=== PATIENT | male | born 1960 | race Caucasian/White ===

== ENCOUNTER 2016-03-10 05:47 | Inpatient (IN) ==
[2016-03-10] MEDS ORDERED: Ringers Solution, Lactated 1,000 ML IVC SCH ×2 (06:30→08:45)
[2016-03-10] MEDS ORDERED: Albuterol 2.5 MG/3 ML NEBULIZER ONE (06:35)
[2016-03-10] MEDS ORDERED: Albuterol 2.5 MG/3 ML NEBULIZER IH ONE ×2 (06:50→08:41)
[2016-03-10] MEDS ORDERED: Lidocaine -MPF 4% 5 ML AMPUL ONE (06:57)
[2016-03-10] MEDS ORDERED: *HR* Midazolam HCl 2 MG/2 ML VIAL ONE (07:00)
[2016-03-10] MEDS ORDERED: *HR* FentaNYL (PF) 100 MCG/2 ML VIAL ONE ×2 (07:00→08:19)
[2016-03-10] MEDS ORDERED: *HR* Propofol 200 MG/20 ML VIAL IVP ONE (07:00)
[2016-03-10] MEDS ORDERED: *HR* Rocuronium Bromide 50 MG/5 ML VIAL ONE (07:01)
[2016-03-10] MEDS ORDERED: *HR* Succinylcholine 200 MG/10 ML VIAL IVP ONE (07:01)
[2016-03-10] MEDS ORDERED: *HR* Phenylephrine 10 MG/ML VIAL ONE (07:01)
[2016-03-10] MEDS ORDERED: Lidocaine -MPF 2% 2 ML VIAL ONE (07:01)
--- NOTE | 2016-03-10 07:14 | Anesthesia Evaluation PreOp ---
Date of Encounter: 03/10/16 Time of Encounter: 07:00 - Past History Planned Operation: Ileostomy Takedown Cardiac History: HTN, Hyperlipidemia Pulmonary History: Denies Any Significant HX Other Medical History: GERD Anesthesia History: No Prior Anesthetic Complications Alcohol Use: none Drug use: none Medications and Allergies Lisinopril [Zestril] 10 mg PO DAILY 11/16/14 [History] Atorvastatin [Lipitor] 40 mg PO DAILY 08/19/15 [History] Omeprazole [PriLOSEC] 20 mg PO DAILY 08/19/15 [History] OxyCODONE/APAP 10/325 [Percocet 10/325 MG] 1 tab PO Q8HR PRN 09/04/15 [History] Amoxicillin/Clavulanate [Augmentin] 875 mg PO BIDWM #20 tablet 09/16/15 [Rx] Docusate [Colace] 100 mg PO BID PRN #60 capsule 09/16/15 [Rx] OxyCODONE/APAP 10/325 [Percocet 10/325 MG] 1 each PO Q4HR PRN #39 tablet [Rx] Ondansetron ODT [Zofran ODT] 4 mg SL Q6HR PRN #15 tab.rapdis 02/16/16 [Rx] Oxycodone HCl/Acetaminophen [Percocet 5-325 mg Tablet] 1 - 2 each PO Q6H PRN # 20 tablet 02/16/16 [Rx] Tamsulosin [Flomax] 0.4 mg PO DAILY #5 capsule 02/16/16 [Rx] Allergies tramadol Allergy (Unverified 03/03/16 11:47) Vomiting - Meds/Allergy Pre-op Review Medications Reviewed: Yes Allergies Reviewed: Yes Beta Blockers on Current Med List: No Anesthesia Results - Labs Laboratory Tests 02/15/16 03/03/16 23:59 11:58 Hgb 15.1 Hct 46.3 Plt Count 352 Sodium 138 Potassium 4.1 Carbon Dioxide 15 L BUN 11 - Imaging EKG: report reviewed (SR) Additional studies: EF 67% Anesthesia Exam O2 Sat Height 1.7 m Height 1.7 m Weight 94.347 kg Weight 94.347 kg O2 Sat by Pulse Oximetry 99 Vital Signs Temp Pulse Resp BP Pulse Ox 97.8 F 92 18 125/86 99 03/10/16 06:11 03/10/16 06:11 03/10/16 06:11 03/10/16 06:11 03/10/16 06:11 Height: 5'7 Weight: 208 lbs NPO (# of Hours): MN - HEENT Pupil (Motor): Pupils equal, EOMI Mallampati: III Teeth: Edentulous Oral Opening: Greater than 3 - TUBERCULOSIS SPECIALIST LOC: Oriented TUBERCULOSIS SPECIALIST Motor: Normal RUE, Normal LUE, Normal RLE, Normal LLE, Normal Face TUBERCULOSIS SPECIALIST Sensory: Normal: RUE, LUE, RLE, LLE, Face - Cardiac Rhythm: Regular Murmur: None JVD: No Carotid Bruit: No - Pulmonary Breath Sounds: bilateral Clear Respiratory Effort: Symmetrical Anesthesia Assess/Plan ASA Score: 2 Modified Goodell Scale for Level of Consciousness: Cooperative, oriented, and tranquil Anesthetic Plan: General Monitoring Plan: Standard Monitors Recovery Plan: PACU (Discussed GA, agrees to proceed)
--- NOTE | 2016-03-10 08:11 | History & Physical Report ---
Date of Encounter: 03/10/16 Time of Encounter: 08:11 24 Hour HP Update - Instructions Instructions: If the History and Physical is less than 30 days old and was completed prior to A.M. admission and or procedure and has NOT been updated on calendar day of procedure please complete this update prior to performing procedure. - Update Patient reports changes in Medical Condition: No Changes in assessment/condition: No Changes in Medication: No Preop tests/diagnostics Reviewed: Yes Surgery Remains Indicated: Yes Consent for Planned Operative Procedure(s) Verified: Yes - Pre-Operative Checklist Preoperative Checklist Indicated: Yes Prophylactic Antibiotic Ordered: Yes Home Medications Include Beta Belem: No
[2016-03-10] MEDS ORDERED: cefOXitin 2,000 MG in D5% in Water (Mini-Bag+) 100 ML IVPB ONE (08:12)
[2016-03-10] MEDS ORDERED: Dexamethasone 4 MG/ML VIAL ONE ×2 (08:20→09:51)
[2016-03-10] MEDS ORDERED: Ondansetron 4 MG/2 ML VIAL ONE ×2 (08:20→09:51)
[2016-03-10] MEDS ORDERED: *HR* Labetalol 100 MG/20 ML MDV IVP PRN (08:41)
[2016-03-10] MEDS ORDERED: *HR* Meperidine 25 MG/ML SYRINGE IVP PRN (08:41)
[2016-03-10] MEDS ORDERED: Naloxone 0.4 MG/ML INJ IVP PRN (08:41)
[2016-03-10] MEDS ORDERED: Ondansetron 4 MG/2 ML VIAL IVP ONE (08:41)
[2016-03-10] MEDS ORDERED: Neostigmine Methylsulfate 3 MG/3 ML SYRINGE ONE ×2 (08:59→09:26)
[2016-03-10] MEDS: *HR* HYDROmorphone (PF) 1 MG/ML SYRINGE IVP PRN ×7 (09:28→20:04)
[2016-03-10] MEDS ORDERED: Acetaminophen IV 1,000 MG/100 ML INFUS..BTL IVPB ONE (09:53)
[2016-03-10] MEDS ORDERED: *HR* HYDROmorphone (PF) 1 MG/ML SYRINGE IVP PRN (09:54)
[2016-03-10] MEDS ORDERED: *HR* HYDROmorphone (PF) 1 MG/ML SYRINGE IVP ONE (10:29)
[2016-03-10] MEDS: 0.9 % Sodium Chloride 1,000 ML IVC SCH (11:03)
[2016-03-10] MEDS: *HR* OxyCODONE/APAP 5/325 TABLET PO PRN ×2 (11:42→16:13)
[2016-03-10] MEDS: Gabapentin 400 MG CAPSULE PO SCH ×2 (14:50→20:04)
[2016-03-10] MEDS: Ipratropium/Albuterol Neb 3 ML IH SCH ×2 (16:01→22:04)
[2016-03-11] MEDS: 0.9 % Sodium Chloride 1,000 ML IVC SCH ×2 (00:35→14:30)
[2016-03-11] MEDS: *HR* OxyCODONE/APAP 5/325 TABLET PO PRN ×3 (00:39→16:25)
[2016-03-11] MEDS: Ipratropium/Albuterol Neb 3 ML IH SCH ×4 (03:55→23:09)
[2016-03-11] MEDS: *HR* HYDROmorphone (PF) 1 MG/ML SYRINGE IVP PRN ×4 (04:22→20:40)
[2016-03-11 05:34] LABS: BUN/Creatinine Ratio 11 (6-26); Blood Urea Nitrogen 12 mg/dL (8-26); Calcium 8.8 mg/dL (8.6-10.8); Carbon Dioxide 22 mEq/L (19-29); Chloride 106 mEq/L (98-109); Glucose 109 mg/dL (70-99); Osmolality,Calculated 282 (280-300); Sodium 136 mEq/L (136-145); eGFR For African Americans > 60 (> 60); eGFR For Non-African Americans > 60 (> 60)
[2016-03-11 07:15] LABS: Basophils % 0.1 %; Hematocrit 41.5 % (37.5-50.1); Hemoglobin 13.8 g/dL (12.9-16.9); Immature Granulocytes % 0.4 % (0-4); Lymphocytes # 1.1 K/mcL (0.6-4.6); Lymphocytes % 6.5 %; Mean Corpuscular HGB Conc 33.3 g/dL (31.6-35.5); Mean Corpuscular Hemoglobin 30.8 pg (28.0-33.3); Mean Corpuscular Volume 92.6 fL (83.0-100.0); Mean Platelet Volume 10.3 fL (9.4-12.4); Monocytes # 1.4 K/mcL (0.0-1.3); Monocytes % 8.7 %; Neutrophils # 13.8 K/mcL (1.6-8.9); Platelet Count 229 K/mcL (140-400); Red Blood Count 4.48 M/mcL (4.19-5.50); Red Cell Distribution Width 13.5 % (11.5-14.5); Segmented Neutrophils % 84.3 %
[2016-03-11] MEDS: Gabapentin 400 MG CAPSULE PO SCH ×3 (08:58→20:39)
[2016-03-11] MEDS: Ondansetron 4 MG/2 ML VIAL IVP PRN ×2 (10:15→21:18)
--- NOTE | 2016-03-11 14:46 | General Surgery Progress Note ---
Date of Encounter: 03/11/16 Time of Encounter: 14:30 - Assessment and Plan (1) Ileostomy status Current Visit: Yes Status: Acute POD #1 from ileostomy reversal Continue clear liquids while awaiting return of bowel function IV fluids Supportive care and pain control Increase activity as tolerated Daily wound care (2) Hypertension Current Visit: No Status: Chronic Normotensive Continue to monitor and adjust treatment as necessary Qualifiers: Hypertension type: essential hypertension Qualified Code(s): I10 - Essential (primary) hypertension (3) DVT prophylaxis Current Visit: No Status: Acute Ambulate hallways TID with assistance EPCDs to bilateral lower extremities for DVT prophylaxis Subjective Patient reports: no new complaints, feels better, still having pain, pain is less, tolerating liquids well, voiding w/o difficulty, no flatus, no bowel movement, afebrile Objective Vital Signs - Last 8 Hours Temp Pulse Resp BP Pulse Ox 03/11/16 12:04 99.0 F 78 16 116/76 93 L 03/11/16 08:11 98.4 F 71 16 107/66 94 L Intake and Output 03/10/16 03/11/16 03/11/16 23:59 07:59 15:59 Intake Total 1032 / 1032 609 / 609 1079 / 1079 Output Total 400 / 400 625 / 625 700 / 700 Balance 632 / 632 -16 / -16 379 / 379 Intake: IV Fluids 672 / 672 609 / 609 719 / 719 0.9 % Sodium Chloride 1, 672 / 672 609 / 609 719 / 719 000 ML @ 75 mls/hr IVC . [id number] [facility] Rx#: [id number] Oral 360 / 360 360 / 360 Output: Urine 400 / 400 625 / 625 700 / 700 Other: Meal Lunch Weight 93.3 kg Patient Weight 03/11/16 23:59 Weight 93.3 kg - General physical appearance well developed, well nourished, no distress - Eyes normal ocular movement - ENT normal mucosa, atraumatic, normocephalic - Neck Neck exam: trachea midline - Respiratory normal respiratory effort, clear to auscultation - Cardiovascular Cardiovascular exam: Present: RRR - Abdomen Abdomen: Present: bowel sounds present, soft, tender (expected post-operative tenderness), wound (Right sided ileostomy site with eryn intact; small amount of serousang. drainage noted. Skin with mild necrosis noted below the staple line.) - Incision Incision: Present: serosanguinous - Neurologic CN 2-12 grossly intact - Musculoskeletal normal gait, normal posture - Psychiatric oriented to time, oriented to person, oriented to place, speech is normal, memory intact - Labs 03/11/16 04:55 03/11/16 04:55 Diabetes panel 03/11/16 Range/Units 04:55 Sodium 136 (136-145) mEq/L Potassium 4.0 (3.5-4.5) mEq/L Chloride 106 (98-109) mEq/L Carbon Dioxide 22 (19-29) mEq/L BUN 12 (8-26) mg/dL Creatinine 1.07 (0.72-1.25) mg/dL Glucose 109 H (70-99) mg/dL Calcium 8.8 (8.6-10.8) mg/dL Calcium panel 03/11/16 Range/Units 04:55 Calcium 8.8 (8.6-10.8) mg/dL Pituitary panel 03/11/16 Range/Units 04:55 Sodium 136 (136-145) mEq/L Potassium 4.0 (3.5-4.5) mEq/L Chloride 106 (98-109) mEq/L Carbon Dioxide 22 (19-29) mEq/L BUN 12 (8-26) mg/dL Creatinine 1.07 (0.72-1.25) mg/dL Glucose 109 H (70-99) mg/dL Calcium 8.8 (8.6-10.8) mg/dL Adrenal panel 03/11/16 Range/Units 04:55 Sodium 136 (136-145) mEq/L Potassium 4.0 (3.5-4.5) mEq/L Chloride 106 (98-109) mEq/L Carbon Dioxide 22 (19-29) mEq/L BUN 12 (8-26) mg/dL Creatinine 1.07 (0.72-1.25) mg/dL Glucose 109 H (70-99) mg/dL Calcium 8.8 (8.6-10.8) mg/dL - VTE Documentation of Mechanical Device: Intermittent pneumatic compression device Consult Discharge Plan - Plan Referrals: Martha Espinosa CNP [Advanced Practice Nurse] - 03/25/16 9:30 am Pamela Oneil DO [Primary Care Provider] - 05/10/16 2:00 pm
[2016-03-12] MEDS: *HR* OxyCODONE/APAP 10/325 TABLET PO PRN ×3 (00:24→14:52)
[2016-03-12] MEDS: Ondansetron 4 MG/2 ML VIAL IVP PRN ×3 (01:06→19:59)
[2016-03-12] MEDS: Ipratropium/Albuterol Neb 3 ML IH SCH ×4 (04:05→21:31)
[2016-03-12] MEDS: *HR* HYDROmorphone (PF) 1 MG/ML SYRINGE IVP PRN ×6 (04:07→22:33)
[2016-03-12] MEDS: 0.9 % Sodium Chloride 1,000 ML IVC SCH ×2 (04:07→14:52)
[2016-03-12] MEDS ORDERED: *HR* Promethazine 25 MG/ML VIAL IVP PRN (04:23)
[2016-03-12 05:21] LABS: Basophils % 0.2 %; Eosinophils % 0.3 %; Hematocrit 40.6 % (37.5-50.1); Hemoglobin 13.7 g/dL (12.9-16.9); Immature Granulocytes % 0.3 % (0-4); Lymphocytes # 0.6 K/mcL (0.6-4.6); Lymphocytes % 4.9 %; Mean Corpuscular HGB Conc 33.7 g/dL (31.6-35.5); Mean Corpuscular Hemoglobin 31.6 pg (28.0-33.3); Mean Corpuscular Volume 93.8 fL (83.0-100.0); Mean Platelet Volume 9.9 fL (9.4-12.4); Monocytes % 7.7 %; Neutrophils # 10.9 K/mcL (1.6-8.9); Platelet Count 183 K/mcL (140-400); Red Blood Count 4.33 M/mcL (4.19-5.50); Red Cell Distribution Width 13.7 % (11.5-14.5); Segmented Neutrophils % 86.6 %
[2016-03-12] MEDS: Gabapentin 400 MG CAPSULE PO SCH ×3 (09:07→19:52)
--- NOTE | 2016-03-12 09:25 | General Surgery Progress Note ---
Date of Encounter: 03/12/16 Time of Encounter: 09:15 - Assessment and Plan (1) Ileostomy status Current Visit: Yes Status: Acute POD #2 from ileostomy reversal Advance to regular diet Saline lock IV fluids Supportive care and pain control Increase activity as tolerated Daily wound care (2) Hypertension Current Visit: No Status: Chronic Normotensive Continue to monitor and adjust treatment as necessary Qualifiers: Hypertension type: essential hypertension Qualified Code(s): I10 - Essential (primary) hypertension (3) DVT prophylaxis Current Visit: No Status: Acute Ambulate hallways TID with assistance EPCDs to bilateral lower extremities for DVT prophylaxis Subjective Patient reports: no new complaints, feels better, still having pain, pain is less, tolerating liquids well, voiding w/o difficulty, flatus, bowel movement, vomiting (last night now resolved), fever (Tmax 100.5) Objective Vital Signs - Last 8 Hours Temp Pulse Resp BP Pulse Ox 03/12/16 06:38 98.9 F 93 16 128/83 98 03/12/16 04:16 100.5 F H 100 17 125/80 93 L Intake and Output 03/11/16 03/12/16 03/12/16 23:59 07:59 15:59 Intake Total 466 / 466 834 / 834 Output Total 400 / 400 300 / 300 Balance 66 / 66 534 / 534 Intake: IV Fluids 466 / 466 534 / 534 0.9 % Sodium Chloride 1, 466 / 466 534 / 534 000 ML @ 75 mls/hr IVC . [id number] [facility] Rx#: [id number] Oral 300 / 300 Output: Urine 400 / 400 100 / 100 Emesis 200 / 200 Other: # Voids 1 # Bowel Movements 0 Weight 93.2 kg Patient Weight 03/12/16 23:59 Weight 93.2 kg - General physical appearance well developed, well nourished, no distress - Eyes normal ocular movement - ENT normal mucosa, atraumatic, normocephalic - Neck Neck exam: trachea midline - Respiratory normal respiratory effort, clear to auscultation - Cardiovascular Cardiovascular exam: Present: RRR - Abdomen Abdomen: Present: bowel sounds present (hypoactive), soft, tender (expected post -operative tenderness) - Incision Incision: Present: clean and dry, intact, serous (Old colostomy site with small amount of serous drainage noted; scabbed area noted below the staple line) - Integumentary no rash - Neurologic CN 2-12 grossly intact - Psychiatric oriented to time, oriented to person, oriented to place, speech is normal, memory intact - Labs 03/12/16 04:58 03/11/16 04:55 - VTE Documentation of Mechanical Device: Intermittent pneumatic compression device Consult Discharge Plan - Plan Referrals: Martha Espinosa CNP [Advanced Practice Nurse] - 03/25/16 9:30 am Pamela Oneil DO [Primary Care Provider] - 05/10/16 2:00 pm - Attending Attestation I examined this patient and my medical decision-making was reviewed with the ELECTROGALVANIZING MACHINE OPERATOR/PA/Advanced Practice Nurse/Resident Physician. I agree with the documented findings, disposition and treatment plan as described except to the extent set forth below.
[2016-03-12] MEDS: Metoclopramide 10 MG/2 ML VIAL IVP SCH (17:30)
[2016-03-13] MEDS: Metoclopramide 10 MG/2 ML VIAL IVP SCH ×4 (00:37→17:26)
[2016-03-13] MEDS: *HR* HYDROmorphone (PF) 1 MG/ML SYRINGE IVP PRN ×9 (00:37→22:44)
[2016-03-13] MEDS: Ipratropium/Albuterol Neb 3 ML IH SCH ×4 (03:17→20:21)
[2016-03-13] MEDS: 0.9 % Sodium Chloride 1,000 ML IVC SCH ×2 (03:46→17:22)
[2016-03-13 08:12] LABS: Basophils % 0.1 %; Eosinophils # 0.1 K/mcL (0.0-0.6); Eosinophils % 0.8 %; Hematocrit 43.3 % (37.5-50.1); Hemoglobin 14.3 g/dL (12.9-16.9); Immature Granulocytes % 0.2 % (0-4); Lymphocytes # 0.7 K/mcL (0.6-4.6); Lymphocytes % 7.7 %; Mean Corpuscular Volume 93.9 fL (83.0-100.0); Mean Platelet Volume 9.9 fL (9.4-12.4); Monocytes # 1.1 K/mcL (0.0-1.3); Monocytes % 11.2 %; Neutrophils # 7.5 K/mcL (1.6-8.9); Platelet Count 187 K/mcL (140-400); Red Blood Count 4.61 M/mcL (4.19-5.50); Red Cell Distribution Width 13.7 % (11.5-14.5)
[2016-03-13 08:25] LABS: BUN/Creatinine Ratio 11 (6-26); Blood Urea Nitrogen 11 mg/dL (8-26); Calcium 8.5 mg/dL (8.6-10.8); Carbon Dioxide 22 mEq/L (19-29); Chloride 106 mEq/L (98-109); Glucose 106 mg/dL (70-99); Osmolality,Calculated 288 (280-300); Potassium 3.7 mEq/L (3.5-4.5); Sodium 139 mEq/L (136-145); eGFR For African Americans > 60 (> 60); eGFR For Non-African Americans > 60 (> 60)
[2016-03-13] MEDS: Gabapentin 400 MG CAPSULE PO SCH ×3 (08:27→19:37)
--- NOTE | 2016-03-13 10:32 | Operative Note ---
Date of procedure: 03/10/16 Pre-op diagnosis: Diverticulitis Post-op diagnosis: same (Diverticulitis) Procedure: Takedown loop ileostomy Anesthesia: BHAVANA Surgeon: Santos Osullivan Estimated blood loss (cc): 5 Condition: stable Disposition: same day Procedure in Detail: After informed consent, the patient was taken Afrin were placed in the supine position. His right abdomen was prepped and draped. His ileostomy bag was taken down. Prevail Betadine solution was used to prep the abdomen. The ileostomy site was then circumferentially incised with electrocautery. The adhesions of the small bowel and subcutaneous tissues as well as the fascia were lysed with left cautery and sharp dissection. Once it was fully delivered a CHARMAINE 75 mm load was fired down the proximal distal limbs of the small bowel. The common enterotomy was closed with a TA 60 stapler. The staple line was then oversewn with 3-0 silk suture in running fashion. The new anastomosis was placed back within the abdomen. The abdominal wall fascia was then closed with looped PDS in running fashion. The skin was closed eryn.
--- NOTE | 2016-03-13 11:41 | General Surgery Progress Note ---
Date of Encounter: 03/13/16 Time of Encounter: 08:10 - Assessment and Plan (1) Ileostomy status Current Visit: Yes Status: Acute POD #3 from ileostomy reversal with post-op ileus NPO with IV fluids, 75cc/hr NG to LIWS Supportive care and pain control Increase activity as tolerated Daily wound care (2) Ileus, postoperative Current Visit: Yes Status: Acute Post-op ileus with distention. POD #3 from ileostomy reversal NPO with IV fluids NG to LIWS Supportive care and pain control Increase activity as tolerated Daily wound care (3) Hypertension Current Visit: No Status: Chronic Normotensive Continue to monitor and adjust treatment as necessary Qualifiers: Hypertension type: essential hypertension Qualified Code(s): I10 - Essential (primary) hypertension (4) DVT prophylaxis Current Visit: No Status: Acute Ambulate hallways TID with assistance EPCDs to bilateral lower extremities for DVT prophylaxis Subjective Patient reports: no new complaints, feels better, still having pain, pain is less, tolerating liquids well, flatus, no bowel movement, fever (max temp 100.2 today, 100.5 yesterday.) Objective Vital Signs - Last 8 Hours Temp Pulse Resp BP Pulse Ox 03/13/16 07:53 99.2 F 110 14 130/81 95 03/13/16 05:50 98.7 F 108 16 122/76 95 Intake and Output 03/12/16 03/13/16 03/13/16 23:59 07:59 15:59 Intake Total 100 / 100 1000 / 1000 Output Total 0 / 0 250 / 250 500 / 500 Balance 100 / 100 750 / 750 -500 / -500 Intake: IV Fluids 1000 / 1000 0.9 % Sodium Chloride 1, 1000 / 1000 000 ML @ 75 mls/hr IVC . [id number] [facility] Rx#: [id number] Oral 100 / 100 Output: Urine 0 / 0 250 / 250 Gastric Tube Lavage 500 / 500 Amount Right Nare 500 / 500 Other: Meal Dinner NPO breakfast Percent of Meal Consumed 0% Weight 93.7 kg Blood Glucose* 92 Patient Weight 03/13/16 23:59 Weight 93.7 kg - General physical appearance well developed, well nourished, no distress - Eyes normal ocular movement - ENT normal mucosa, atraumatic, normocephalic - Neck Neck exam: trachea midline - Respiratory normal respiratory effort, clear to auscultation - Cardiovascular Cardiovascular exam: Present: tachycardia - Abdomen Abdomen: Present: bowel sounds present, soft, distended, tender (expected post operative tenderness) - Incision Incision: Present: clean and dry, intact, serous (Old colostomy site with small amount of serous drainage noted) - Integumentary no rash - Neurologic CN 2-12 grossly intact - Psychiatric oriented to time, oriented to person, oriented to place, speech is normal, memory intact - Labs 03/13/16 08:02 03/13/16 08:02 Diabetes panel 03/13/16 Range/Units 08:02 Sodium 139 (136-145) mEq/L Potassium 3.7 (3.5-4.5) mEq/L Chloride 106 (98-109) mEq/L Carbon Dioxide 22 (19-29) mEq/L BUN 11 (8-26) mg/dL Creatinine 1.04 (0.72-1.25) mg/dL Glucose 106 H (70-99) mg/dL Calcium 8.5 L (8.6-10.8) mg/dL Calcium panel 03/13/16 Range/Units 08:02 Calcium 8.5 L (8.6-10.8) mg/dL Pituitary panel 03/13/16 Range/Units 08:02 Sodium 139 (136-145) mEq/L Potassium 3.7 (3.5-4.5) mEq/L Chloride 106 (98-109) mEq/L Carbon Dioxide 22 (19-29) mEq/L BUN 11 (8-26) mg/dL Creatinine 1.04 (0.72-1.25) mg/dL Glucose 106 H (70-99) mg/dL Calcium 8.5 L (8.6-10.8) mg/dL Adrenal panel 03/13/16 Range/Units 08:02 Sodium 139 (136-145) mEq/L Potassium 3.7 (3.5-4.5) mEq/L Chloride 106 (98-109) mEq/L Carbon Dioxide 22 (19-29) mEq/L BUN 11 (8-26) mg/dL Creatinine 1.04 (0.72-1.25) mg/dL Glucose 106 H (70-99) mg/dL Calcium 8.5 L (8.6-10.8) mg/dL - VTE Documentation of Mechanical Device: Intermittent pneumatic compression device Consult Discharge Plan - Plan Referrals: Martha Espinosa CNP [Advanced Practice Nurse] - 03/25/16 9:30 am Pamela Oneil DO [Primary Care Provider] - 05/10/16 2:00 pm
[2016-03-14] MEDS: Metoclopramide 10 MG/2 ML VIAL IVP SCH ×4 (00:24→18:15)
[2016-03-14] MEDS: *HR* HYDROmorphone (PF) 1 MG/ML SYRINGE IVP PRN ×6 (02:57→18:21)
[2016-03-14] MEDS: Ipratropium/Albuterol Neb 3 ML IH SCH ×4 (04:50→22:30)
[2016-03-14] MEDS: 0.9 % Sodium Chloride 1,000 ML IVC SCH ×2 (05:58→19:58)
[2016-03-14] MEDS: Gabapentin 400 MG CAPSULE PO SCH ×3 (08:23→19:58)
--- NOTE | 2016-03-14 15:29 | General Surgery Progress Note ---
Date of Encounter: 03/14/16 Time of Encounter: 09:00 - Assessment and Plan (1) Ileostomy status Current Visit: Yes Status: Acute POD #4 from ileostomy reversal Transitioning to clear liquids, if well tolerated will attempt regular breakfast. Possible discharge if diet well tolerated. NG removed Supportive care and pain control Increase activity as tolerated Daily wound care (2) Ileus, postoperative Current Visit: Yes Status: Acute Improving, noted BM today. POD #4 from ileostomy reversal Advanced to clears. Supportive care and pain control Increase activity as tolerated Daily wound care (3) Hypertension Current Visit: No Status: Chronic Normotensive Continue to monitor and adjust treatment as necessary Qualifiers: Hypertension type: essential hypertension Qualified Code(s): I10 - Essential (primary) hypertension (4) DVT prophylaxis Current Visit: No Status: Acute Ambulate hallways TID with assistance EPCDs to bilateral lower extremities for DVT prophylaxis Subjective Patient reports: no new complaints, feels better, pain is less, flatus, bowel movement, afebrile Objective Vital Signs - Last 8 Hours Temp Pulse Resp BP Pulse Ox 03/14/16 11:37 99.1 F 98 16 126/77 95 03/14/16 08:22 94 L Intake and Output 03/13/16 03/14/16 03/14/16 23:59 07:59 15:59 Intake Total 1000 / 1000 1000 / 1000 Output Total 425 / 425 400 / 400 Balance 575 / 575 600 / 600 Intake: IV Fluids 1000 / 1000 1000 / 1000 0.9 % Sodium Chloride 1, 1000 / 1000 1000 / 1000 000 ML @ 75 mls/hr IVC . [id number] [facility] Rx#: [id number] Oral 0 / 0 0 / 0 Output: Urine 225 / 225 350 / 350 Gastric Tube Lavage 200 / 200 50 / 50 Amount Right Nare 200 / 200 50 / 50 Other: Meal NPO at this time Stool Size Moderate Stool Consistency loose Stool Color Brown # Voids 1 Weight 90.718 kg Blood Glucose* 89 85 95 Patient Weight 03/14/16 23:59 Weight 90.718 kg - General physical appearance well developed, well nourished, no distress - Eyes normal ocular movement - ENT normal mucosa, atraumatic, normocephalic - Neck Neck exam: trachea midline - Respiratory normal respiratory effort, clear to auscultation - Cardiovascular Cardiovascular exam: Present: tachycardia, regular rhythm - Abdomen Abdomen: Present: bowel sounds present, soft, tender (expected post operative tenderness) - Integumentary no rash - Neurologic CN 2-12 grossly intact - Psychiatric oriented to time, oriented to person, oriented to place, speech is normal, memory intact - Labs 03/13/16 08:02 03/13/16 08:02 - VTE Documentation of Mechanical Device: Intermittent pneumatic compression device Consult Discharge Plan - Plan Referrals: Martha Espinosa CNP [Advanced Practice Nurse] - 03/25/16 9:30 am Pamela Oneil DO [Primary Care Provider] - 05/10/16 2:00 pm
[2016-03-14] MEDS: *HR* OxyCODONE/APAP 10/325 TABLET PO PRN (20:05)
[2016-03-15] MEDS: *HR* OxyCODONE/APAP 10/325 TABLET PO PRN ×4 (02:54→15:25)
[2016-03-15] MEDS: Ipratropium/Albuterol Neb 3 ML IH SCH ×3 (03:40→16:36)
[2016-03-15 07:29] LABS: BUN/Creatinine Ratio 13 (6-26); Blood Urea Nitrogen 11 mg/dL (8-26); Calcium 8.3 mg/dL (8.6-10.8); Carbon Dioxide 21 mEq/L (19-29); Chloride 106 mEq/L (98-109); Glucose 89 mg/dL (70-99); Osmolality,Calculated 287 (280-300); Potassium 3.1 mEq/L (3.5-4.5); Sodium 139 mEq/L (136-145); eGFR For African Americans > 60 (> 60); eGFR For Non-African Americans > 60 (> 60)
[2016-03-15] MEDS: 0.9 % Sodium Chloride 1,000 ML IVC SCH (10:11)
[2016-03-15] MEDS: Gabapentin 400 MG CAPSULE PO SCH ×2 (10:11→15:24)
[2016-03-15] MEDS ORDERED: Simethicone 80 MG TAB.CHEW PO PRN (12:42)
--- NOTE | 2016-03-15 12:48 | Discharge Summary ---
Date of Encounter: 03/15/16 Time of Encounter: 12:30 - Discharge Diagnosis (1) Ileostomy status Priority: Primary Status: Resolved (2) Hypertension Priority: Secondary Status: Chronic Qualifiers: Hypertension type: essential hypertension Qualified Code(s): I10 - Essential (primary) hypertension (3) DVT prophylaxis Priority: Secondary Status: Acute - Discharge Medications Prescriptions: Ondansetron ODT [Zofran ODT] 4 mg SL Q6HR PRN #30 tab.rapdis PRN Reason: Nausea Docusate [Colace] 100 mg PO BID PRN #60 capsule PRN Reason: Constipation OxyCODONE/APAP 10/325 [Percocet 10/325 MG] 1 each PO Q6H PRN #30 tablet PRN Reason: Pain Home Medications: Gabapentin [Neurontin] 800 mg PO TID 03/10/16 [History] Sertraline [Zoloft] 25 mg PO DAILY 03/10/16 [History] Docusate [Colace] 100 mg PO BID PRN #60 capsule 03/15/16 [Rx] Ondansetron ODT [Zofran ODT] 4 mg SL Q6HR PRN #30 tab.rapdis 03/15/16 [Rx] OxyCODONE/APAP 10/325 [Percocet 10/325 MG] 1 each PO Q6H PRN #30 tablet [Rx] Allergies/Adverse Reactions: Allergies tramadol Adverse Reaction (Verified 03/10/16 07:30) Vomiting General Surgery Exam Initial Vital Signs Temp Pulse Resp BP Pulse Ox 97.8 F 92 18 125/86 99 03/10/16 06:11 03/10/16 06:11 03/10/16 06:11 03/10/16 06:11 03/10/16 06:11 - General physical appearance well developed, well nourished, no distress - Eyes normal ocular movement - ENT normal mucosa - Neck trachea midline - Respiratory normal respiratory effort, clear to auscultation - Cardiovascular Cardiovascular exam: Present: RRR, 15, 16 - Abdomen Abdomen general surgery: Present: bowel sounds present, soft, distended, tender (expected post-operative tenderness), wound (RLQ with ileostomy site (scabbed area noted, improving)) - Incision Incision: Present: clean and dry, intact - Integumentary Integumentary general surgery: Present: warm and dry - Neurologic Present: CN 2-12 grossly intact, normal coordination, normal sensation - Musculoskeletal Present: normal gait, normal posture - Psychiatric Psychiatric general surgery: Present: appropriate, oriented to person, oriented to place, oriented to time, speech is normal, memory intact Date of admission: 03/12/16 17:51 Primary care physician: Pamela Oneil DO Consults: 03/10/16 13:15 Consult to Rn Orthopedic [CONS] Routine Reason for SW Consult: REQUESTS INFO ON LW,DPOA. Discharging clinician: Santos Osullivan ([place] Espinosa) Anticipated date of discharge: 03/15/16 - Patient Status Disposition: Home, Self-Care Functional capacity at discharge: independent ambulation Overall status at discharge: patient is progressing back to baseline - Discharge Instructions Follow Up With: Martha Espinosa CNP [Advanced Practice Nurse] - 03/25/16 9:30 am Pamela Oneil DO [Primary Care Provider] - 05/10/16 2:00 pm Additional Instructions: #1 may shower, no tub bath for 2 weeks #2 wash incisions with soap and water and pat dry daily. apply dry 4X4 gauze to ileostomy site and tape to secure daily #3 no lifting, pushing, pulling more than 15 pounds for the next 2 weeks #4 no driving until off narcotics for 24 hours and able to safely react in the car #5 may climb stairs - Diet and Activity Activity: other (See additional instructions above) Diet: advance to your usual diet - Hospital Course Hospital course: Mr. Presley is a 55 year old male s/p ileostomy takedown with Dr. Osullivan. He did experience a post-operative ileus and did require NG tube decompression. We supported him with IV fluids and pain control while awaiting return of bowel function. He is now passing flatus and is having bowel movements. NG tube has been removed. He was started on clear liquids and slowly advanced as tolerated to regular diet. His pain is controlled with PO pain medications. His vital signs are stable and he is afebrile. He is voiding and ambulating without difficulty. We will begin discharge planning and plan for outpatient follow-up in the next 10-14 days. - Time Spent with Patient Total time spent providing and/or coordinating discharge services: Less than 30 minutes Labs on day of discharge: Labs from last 24 hours 03/15/16 03/14/16 07:09 17:52 Sodium 139 Potassium 3.1 L Chloride 106 Carbon Dioxide 21 BUN 11 Creatinine 0.88 Est GFR ( Amer) > 60 Est GFR (Non-Af Amer) > 60 BUN/Creatinine Ratio 13 Glucose 89 POC Glucose 94 H Calculated Osmolality 287 Calcium 8.3 L - Impressions ITS Impressions Chest/Abdomen X-ray 03/12/16 13:17 IMPRESSION: Dilated loops of small and large bowel as detailed likely representing a postoperative ileus. D/ / Saul Bustamante MD / Saul Bustamante MD Interpreting Provider: Saul Bustamante MD X-Ray 03/12/16 21:40 IMPRESSION: 1. NG tube in place with tip curled in the mid stomach. 2. Dilated small bowel and colon suggestive of ileus. D/ / Adam Butler MD / Adam Butler MD Interpreting Provider: Adam Butler MD - Attending Attestation I examined this patient and my medical decision-making was reviewed with the LOADING DOCK HELPER/PA/Advanced Practice Nurse/Resident Physician. I agree with the documented findings, disposition and treatment plan as described except to the extent set forth below.
[2016-03-15 14:21] VITALS: BP 133/86
== END 2016-03-15 18:30 | disposition home or self-care (01) | DRG 223 ==
LOC: 3ANU 05:47 → SAMDAY 05:47 → 3ANU 10:21
PROVIDERS: ADMIT Surgery; ATTEND Surgery

== ENCOUNTER 2016-03-21 19:00 | Inpatient (IN) ==
--- NOTE | 2016-03-21 19:07 | Emergency Department Note ---
Disposition Clinical Impression: Enterocutaneous fistula, Hypokalemia Abdominal pain Qualifiers: Abdominal location: unspecified location Qualified Code(s): R10.9 - Unspecified abdominal pain Leukocytosis Qualifiers: Leukocytosis type: unspecified Qualified Code(s): D72.829 - Elevated white blood cell count, unspecified Disposition: Admitted As Inpatient Condition: Good Referrals: Pamela Oneil DO [Primary Care Provider] - Forms: ED Satisfaction Letter Time of Disposition: 21:35 (Dr. Soto accepts for Dr. Osullivan) Abdominal Pain HPI - General Chief Complaint: ED Skin/Abscess/Foreign Body Stated Complaint: leaking post surgical site Time Seen by Provider: 03/21/16 19:04 Source: patient, EMS Mode of arrival: EMS Limitations: no limitations Nursing Notes Reviewed: Yes Vital Signs Reviewed: Yes - History of Present Illness HPI Narrative: Patient is a 55 old male with past medical history of recent ileostomy takedown by Dr. Osullivan on Mar 10. He presents today via EMS due to concern for entero- cutaneous fistula. Patient states that he was sitting watching TV, felt a sharp pain in his abdomen and legs down and had a hole in the area surgical site from March 10 in the midline lower abdomen. He said that a "large amount of stool gushed out." Denies any active bleeding from the site. He denies any other abdominal pain, fevers, nausea, vomiting, chest, shortness breath, blood in stool, blood in urine. Patient said that he had original ileostomy placed in July due to exploratory celiotomy, lysis of adhesions, left colectomy with anastomosis for stenotic sigmoid anastomosis. Pain Scale: 0 - Related Data Home Medications Medication Instructions Recorded Confirmed Gabapentin [Neurontin] 800 mg PO TID 03/10/16 03/10/16 Sertraline [Zoloft] 25 mg PO DAILY 03/10/16 03/10/16 Previous Rx's Medication Instructions Recorded Docusate [Colace] 100 mg PO BID PRN #60 capsule 03/15/16 Ondansetron ODT [Zofran ODT] 4 mg SL Q6HR PRN #30 tab.rapdis 03/15/16 OxyCODONE/APAP 10/325 [Percocet 1 each PO Q6H PRN #30 tablet 03/15/16 10/325 MG] Allergies Allergy/AdvReac Type Severity Reaction Status Date / Time tramadol AdvReac Vomiting Verified 03/10/16 07:30 All systems ED: reviewed and negative except as stated. Abdominal Pain PMH - Past Medical History Medical history: Reports: asthma, GERD, hyperlipidemia, hypertension, kidney stones Male Surgical History: Reports: colostomy, other Psychiatric history: Reports: anxiety, depression - Social History Smoking status: Never smoker Alcohol use: Reports: none Drug use: Reports: none Physical Exam - General Limitations: no limitations General appearance: alert, in no apparent distress - Head Head exam: atraumatic, normocephalic, normal inspection - Eye Eye exam: Present: normal appearance, PERRL, EOMI - ENT ENT exam: normal exam, normal oropharynx, mucous membranes moist - Neck Neck exam: Present: normal inspection, full ROM, trachea midline - Chest Chest inspection: Present: normal inspection, symmetric chest wall rise - Respiratory Respiratory exam: Present: normal lung sounds bilaterally - Cardiovascular Cardiovascular exam: Present: regular rate, normal rhythm, normal heart sounds - Abdominal Exam Abdominal exam: Present: soft, tenderness (mild tenderness, erythema of the midline lower abdominal incision scar inferior to the umbilicus. Small hole approximately 1cm in size with stool leaking from the wound. ). Absent: distention, guarding, rebound, rigidity - Extremities Exam Extremities exam: Present: normal inspection, full ROM. Absent: tenderness, pedal edema - Back Exam Back exam: Present: normal inspection, full ROM. Absent: tenderness - Neurological Exam Neurological exam: Present: alert, oriented X3 - Psychiatric Psychiatric exam: Present: normal affect, normal mood - Skin Skin exam: Present: warm, dry, intact, normal color Course Course Narrative: Vital signs within normal limits. Physical exam shows mild tenderness, erythema of the midline lower abdominal incision scar inferior to the umbilicus. Small hole approximately 1cm in size with stool leaking from the wound. We will obtain basic blood work including coags, we will obtain CT the abdomen and pelvis with IV and oral contrast to assess for enterocutaneous fistula. After results are back, we will contact surgery customs and border protection inspector for further assessment and treatment. Patient has refused any pain medication at this time. 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 20:13 white blood cell count elevated at 13.8. Potassium low at 2.8, currently being replaced with oral potassium. Currently waiting on CT scan. 21:18 patient requesting pain medication at this time. Patient was given 1 mg of Dilaudid for pain control. CT scan shows enterocutaneous fistula and also signs of colitis. Surgery has been paged for admission. We will discuss anabolic regimen with surgery but will likely start Cipro and Flagyl on surgery request. 21:33 I discussed the case with Dr. Soto. She requested that I give the patient Zosyn. She also requested that I page radiology to get a more specific read. She requested that I admit the patient to surgery and staff under Dr. Osullivan. She also requested that I had an ileostomy appliance over the area to prevent stool leakage onto the skin. 21:45 Spoke with the radiologist, he believes that the official is from small bowel to skin. He suggested that a further evaluation is needed, fistula cannot be directly injected with contrast and reimaged. Results relayed to Dr. Soto. Abdomen/Pelvis CT 03/21/16 19:06 IMPRESSION: A fistulous tract can be seen extending into the anterior abdominal wall likely connecting a bowel loop to the skin. Status post partial colectomy. The transverse colon demonstrates thickening consistent with colitis. Some distention of bowel loops consistent with ileus. Cholelithiasis but no acute cholecystitis. D/ / 03/21/2016 21:05:37 Kim Maloney MD / kyler Interpreting Provider: Kim Maloney MD Vital Signs Temperature 98.6 F 03/21/16 19:02 Pulse Rate 95 03/21/16 19:02 Respiratory Rate 18 03/21/16 19:02 Blood Pressure 133/69 03/21/16 19:02 O2 Sat by Pulse Oximetry 95 03/21/16 19:02 Temperature 98.6 F 03/21/16 19:02 Pulse Rate 79 03/21/16 20:15 Respiratory Rate 16 03/21/16 20:15 Blood Pressure 119/72 03/21/16 20:15 O2 Sat by Pulse Oximetry 98 03/21/16 20:15 Oxygen Delivery Oxygen Delivery Room Air Abdominal Pain - MDM Narrative Medical decision making narrative: Vital signs within normal limits. Physical exam shows mild tenderness, erythema of the midline lower abdominal incision scar inferior to the umbilicus. Small hole approximately 1cm in size with stool leaking from the wound. We will obtain basic blood work including coags, we will obtain CT the abdomen and pelvis with IV and oral contrast to assess for enterocutaneous fistula. After results are back, we will contact surgery customs and border protection inspector for further assessment and treatment. Patient has refused any pain medication at this time. 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 20:13 white blood cell count elevated at 13.8. Potassium low at 2.8, currently being replaced with oral potassium. Currently waiting on CT scan. 21:18 patient requesting pain medication at this time. Patient was given 1 mg of Dilaudid for pain control. CT scan shows enterocutaneous fistula and also signs of colitis. Surgery has been paged for admission. We will discuss anabolic regimen with surgery but will likely start Cipro and Flagyl on surgery request. 21:33 I discussed the case with Dr. Soto. She requested that I give the patient Zosyn. She also requested that I page radiology to get a more specific read. She requested that I admit the patient to surgery and staff under Dr. Osullivan. She also requested that I had an ileostomy appliance over the area to prevent stool leakage onto the skin. 21:45 Spoke with the radiologist, he believes that the official is from small bowel to skin. He suggested that a further evaluation is needed, fistula cannot be directly injected with contrast and reimaged. Results relayed to Dr. Soto. - Medical Records Medical records reviewed: Yes I reviewed the patient's medical records. - Lab Data Lab results reviewed: Yes I reviewed the patient's lab results. Result diagrams: 03/21/16 19:13 03/21/16 19:13 Lab Results 03/21/16 03/21/16 03/21/16 Range/Units 19:13 19:13 19:13 WBC 13.8 H (4.3-11.1) K/mcL RBC 4.31 (4.19-5.50) M/mcL Hgb 13.1 (12.9-16.9) g/dL Hct 39.3 (37.5-50.1) % MCV 91.2 (83.0-100.0) fL MCH 30.4 (28.0-33.3) pg MCHC 33.3 (31.6-35.5) g/dL RDW 13.3 (11.5-14.5) % Plt Count 319 (140-400) K/mcL MPV 9.5 (9.4-12.4) fL Immature Gran % 0.9 (0-4) % Seg Neutrophils % 82.1 % Lymphocytes % 9.3 % Monocytes % 7.1 % Eosinophils % 0.4 % Basophils % 0.2 % Neutrophils # 11.3 H (1.6-8.9) K/mcL Lymphocytes # 1.3 (0.6-4.6) K/mcL Monocytes # 1.0 (0.0-1.3) K/mcL Eosinophils # 0.1 (0.0-0.6) K/mcL Basophils # 0.0 (0.0-0.2) K/mcL Immature Plt Fraction 2.6 (1.1-6.1) % PT 13.5 H (9.4-12.1) Seconds INR 1.2 APTT 28.3 (26.0-36.0) Seconds Sodium 138 (136-145) mEq/L Potassium 2.8 L (3.5-4.5) mEq/L Chloride 97 L (98-109) mEq/L Carbon Dioxide 28 (19-29) mEq/L BUN 9 (8-26) mg/dL Creatinine 1.09 (0.72-1.25) mg/dL Est GFR ( Amer) > 60 (> 60) Est GFR (Non-Af Amer) > 60 (> 60) BUN/Creatinine Ratio 8 (6-26) Glucose 114 H (70-99) mg/dL Calculated Osmolality 286 (280-300) Calcium 8.4 L (8.6-10.8) mg/dL - Radiology Data Radiology results reviewed: Yes I reviewed the patient's radiology results. Abdomen/Pelvis CT 03/21/16 19:06 IMPRESSION: A fistulous tract can be seen extending into the anterior abdominal wall likely connecting a bowel loop to the skin. Status post partial colectomy. The transverse colon demonstrates thickening consistent with colitis. Some distention of bowel loops consistent with ileus. Cholelithiasis but no acute cholecystitis. D/ / 03/21/2016 21:05:37 Kim Maloney MD / kyler Interpreting Provider: Kim Maloney MD Augusto - Augusto Situation: Demographics, MOA Background: Presenting Complaint, Relevant PMH, Meds, & Allergies Assessment: Vital Signs, Course and respsone to treatment, Exam Concerns, Patient/Family Expectation, Pertinant Lab Results, Outstanding Labs Recommendation: Barrier(s) to disposition, Recommendation based on pending studies, treatments, or consults Augusto Report Given to: Dr. Brittany Casas Repor Time: 21:36 Attestation Statement - Attestation Attestation: I examined this patient and my medical decision-making was reviewed with the STATUARY PAINTER/PA/Advanced Practice Nurse/Resident Physician. I agree with the documented findings, disposition and treatment plan as described except to the extent set forth below. [id number] time provided in conjunction with the resident physician Dr. Quijano Patient presents by EMS for foul-smelling material leaking from his colostomy reversal incision site. Concern for enterocutaneous fistula. CT with contrast ordered. Patient otherwise appears nontoxic
[2016-03-21 19:20] LABS: Basophils % 0.2 %; Eosinophils # 0.1 K/mcL (0.0-0.6); Eosinophils % 0.4 %; Hematocrit 39.3 % (37.5-50.1); Hemoglobin 13.1 g/dL (12.9-16.9); Immature Granulocytes % 0.9 % (0-4); Immature Platelets 2.6 % (1.1-6.1); Lymphocytes # 1.3 K/mcL (0.6-4.6); Lymphocytes % 9.3 %; Mean Corpuscular HGB Conc 33.3 g/dL (31.6-35.5); Mean Corpuscular Hemoglobin 30.4 pg (28.0-33.3); Mean Corpuscular Volume 91.2 fL (83.0-100.0); Mean Platelet Volume 9.5 fL (9.4-12.4); Monocytes % 7.1 %; Neutrophils # 11.3 K/mcL (1.6-8.9); Platelet Count 319 K/mcL (140-400); Red Blood Count 4.31 M/mcL (4.19-5.50); Red Cell Distribution Width 13.3 % (11.5-14.5); Segmented Neutrophils % 82.1 %
[2016-03-21 19:28] LABS: INR 1.2; Prothrombin Time 13.5 Seconds (9.4-12.1)
[2016-03-21 19:30] LABS: Activated Partial Thrombo Time 28.3 Seconds (26.0-36.0)
[2016-03-21 19:31] LABS: BUN/Creatinine Ratio 8 (6-26); Blood Urea Nitrogen 9 mg/dL (8-26); Calcium 8.4 mg/dL (8.6-10.8); Carbon Dioxide 28 mEq/L (19-29); Chloride 97 mEq/L (98-109); Glucose 114 mg/dL (70-99); Osmolality,Calculated 286 (280-300); Potassium 2.8 mEq/L (3.5-4.5); Sodium 138 mEq/L (136-145); eGFR For African Americans > 60 (> 60); eGFR For Non-African Americans > 60 (> 60)
[2016-03-21] MEDS ORDERED: Potassium Chloride Elixir 20 MEQ/15 ML UDC PO ONE (19:43)
[2016-03-21] MEDS: Ondansetron ODT 4 MG TAB.RAPDIS SL ONE ×2 (20:17→21:28)
[2016-03-21] MEDS ORDERED: *HR* HYDROmorphone (PF) 1 MG/ML SYRINGE IVP ONE (21:17)
[2016-03-21] MEDS ORDERED: Piperacillin/Tazobactam 3.375 GM in D5% in Water (Mini-Bag+) 100 ML IVPB ONE (21:26)
[2016-03-22] MEDS: 0.9 % Sodium Chloride 1,000 ML IVC SCH ×3 (00:21→21:21)
[2016-03-22] MEDS: *HR* Morphine 2 MG/ML SYRINGE IV PRN ×7 (00:23→21:24)
[2016-03-22] MEDS ORDERED: Acetaminophen 325 MG TABLET PO PRN ×2 (04:28→04:32)
[2016-03-22 04:48] LABS: Basophils % 0.2 %; Eosinophils # 0.1 K/mcL (0.0-0.6); Eosinophils % 0.4 %; Hematocrit 37.8 % (37.5-50.1); Hemoglobin 12.5 g/dL (12.9-16.9); Immature Granulocytes % 0.7 % (0-4); Lymphocytes # 0.8 K/mcL (0.6-4.6); Lymphocytes % 4.9 %; Mean Corpuscular HGB Conc 33.1 g/dL (31.6-35.5); Mean Corpuscular Hemoglobin 30.5 pg (28.0-33.3); Mean Corpuscular Volume 92.2 fL (83.0-100.0); Mean Platelet Volume 9.8 fL (9.4-12.4); Monocytes # 0.8 K/mcL (0.0-1.3); Monocytes % 4.8 %; Platelet Count 307 K/mcL (140-400); Red Cell Distribution Width 13.4 % (11.5-14.5)
[2016-03-22] MEDS: Piperacillin/Tazobactam 3.375 GM in D5% in Water (Mini-Bag+) 100 ML IVPB SCH ×2 (07:48→16:05)
[2016-03-22] MEDS: Pantoprazole 40 MG VIAL IVP SCH (07:49)
--- NOTE | 2016-03-22 15:13 | General Surg History&Physical ---
Date of Encounter: 03/22/16 Time of Encounter: 14:30 Assessment and Plan (1) Enterocutaneous fistula Current Visit: Yes Status: Acute Plan for fistulgram by IR. He may require a second operation to evaluate the fistulous tract. The assessment and plan as outlined above was discussed with the patient and/or family members who expressed understanding and agreement. All questions were answered. History of Present Illness Chief complaint: Stool leaking from midline incision HPI: Mr. Presley is a 55 year old male who is recently s/p ileostomy takedown with Dr. Osullivan on 03/10/16. He was discharged on 03/15/16 to home with home health care. He states that he had been doing well up until yesterday. He states that he was watching TV and felt like his mid-abdomen was swelling. He began to experience a continuous, sharp pain and states that his midline incision proceeded to open up. He states that there were copious amounts of stool content which drained from his midline abdomen. He does report decreased appetite. Denies any nausea/vomiting. Denies any fevers/chills. He presented to the ED for evaluation and did undergo a CT scan of the abdomen/pelvis. The test shows evidence of a colocutaneous fistula. He has been admitted to the hospital for further work-up and treatment. Past Med Surg Social Fam HX - Past Medical History Source: patient, old records reviewed Medical history: asthma, GERD (stomach ulcers), hyperlipidemia, hypertension, kidney stones Psychiatric history: anxiety, depression - Past Surgical History Surgical History: colectomy (secondary to diverticulitis and subsequent exploratory laparotomy for anastomotic leak with diverting ileostomy; 03/10/16 takedown of ileostomy) - Social History Smoking Status: Never smoker Smokeless Tobacco Status: No Alcohol use: none Drug use: none Current living situation: Home - Independent Activity Level: Independent ambulation - Family History Father Hx Family Cardiac Disorders: Yes Mother Hx Family Cancer: Yes Medications and Allergies Gabapentin [Neurontin] 800 mg PO TID 03/10/16 [History] Docusate [Colace] 100 mg PO BID PRN #60 capsule 03/15/16 [Rx] Ondansetron ODT [Zofran ODT] 4 mg SL Q6HR PRN #30 tab.rapdis 03/15/16 [Rx] Omeprazole [PriLOSEC] 40 mg PO DAILY 03/22/16 [History] OxyCODONE/APAP 10/325 [Percocet 10/325 MG] 1 tab PO Q6H PRN 03/22/16 [History] Allergies tramadol Adverse Reaction (Verified 03/10/16 07:30) Vomiting Review of Systems All systems PM: reviewed and no additional remarkable complaints except as stated (in the HPI) All systems PM: A 10-system review of systems was performed and is negative for pertinent findings except as documented above in the HPI. General Surgery Exam Initial Vital Signs Temp Pulse Resp BP Pulse Ox 98.6 F 95 18 133/69 95 03/21/16 19:02 03/21/16 19:02 03/21/16 19:02 03/21/16 19:02 03/21/16 19:02 - General physical appearance well developed, well nourished, no distress, moderate pain - Eyes normal ocular movement - ENT normal mucosa, atraumatic, normocephalic - Neck trachea midline - Respiratory normal respiratory effort, clear to auscultation - Cardiovascular Cardiovascular exam: Present: RRR, 15, 16 - Abdomen Abdomen general surgery: Present: bowel sounds present, soft, tender, wound ( Midline with open wound draining copious amount of stool; RLQ with old ileostomy site with dry scab noted) - Incision Incision: Present: clean and dry (RLQ), intact, open (Midline- copious amounts of stool noted) - Integumentary Integumentary general surgery: Present: warm and dry - Neurologic Present: CN 2-12 grossly intact - Musculoskeletal Present: normal gait, normal posture - Psychiatric Psychiatric general surgery: Present: appropriate, oriented to person, oriented to place, oriented to time, speech is normal, memory intact Results - Labs 03/22/16 04:10 03/21/16 19:13 Abnormal lab results WBC 15.7 K/mcL (4.3-11.1) H 03/22/16 04:10 RBC 4.10 M/mcL (4.19-5.50) L 03/22/16 04:10 Hgb 12.5 g/dL (12.9-16.9) L 03/22/16 04:10 Neutrophils # 14.0 K/mcL (1.6-8.9) H 03/22/16 04:10 PT 13.5 Seconds (9.4-12.1) H 03/21/16 19:13 Potassium 2.8 mEq/L (3.5-4.5) L 03/21/16 19:13 Chloride 97 mEq/L (98-109) L 03/21/16 19:13 Glucose 114 mg/dL (70-99) H 03/21/16 19:13 POC Glucose 97 (58-89) H 03/22/16 11:38 Calcium 8.4 mg/dL (8.6-10.8) L 03/21/16 19:13 All other labs normal. - Imaging CT scan - abdomen: report reviewed CT scan - pelvis: report reviewed Additional studies: Abdomen/Pelvis CT 03/21/16 19:06 IMPRESSION: A fistulous tract can be seen extending into the anterior abdominal wall likely connecting a bowel loop to the skin. Status post partial colectomy. The transverse colon demonstrates thickening consistent with colitis. Some distention of bowel loops consistent with ileus. Cholelithiasis but no acute cholecystitis. D/ / 03/21/2016 21:05:37 Kim Maloney MD / kyler Interpreting Provider: Kim Maloney MD
[2016-03-22] MEDS: *HR* Heparin 5,000 UNIT/ML VIAL SQ SCH (17:28)
[2016-03-23] MEDS: Piperacillin/Tazobactam 3.375 GM in D5% in Water (Mini-Bag+) 100 ML IVPB SCH ×3 (00:23→16:11)
[2016-03-23 04:59] LABS: Basophils % 0.1 %; Eosinophils # 0.2 K/mcL (0.0-0.6); Eosinophils % 2.6 %; Hemoglobin 12.4 g/dL (12.9-16.9); Immature Granulocytes % 0.9 % (0-4); Lymphocytes # 0.7 K/mcL (0.6-4.6); Lymphocytes % 8.3 %; Mean Corpuscular HGB Conc 32.6 g/dL (31.6-35.5); Mean Corpuscular Hemoglobin 30.8 pg (28.0-33.3); Mean Corpuscular Volume 94.3 fL (83.0-100.0); Mean Platelet Volume 9.6 fL (9.4-12.4); Monocytes # 0.6 K/mcL (0.0-1.3); Monocytes % 6.7 %; Platelet Count 299 K/mcL (140-400); Red Blood Count 4.03 M/mcL (4.19-5.50); Red Cell Distribution Width 13.3 % (11.5-14.5); Segmented Neutrophils % 81.4 %
[2016-03-23 05:17] LABS: BUN/Creatinine Ratio 8 (6-26); Blood Urea Nitrogen 7 mg/dL (8-26); Carbon Dioxide 26 mEq/L (19-29); Chloride 103 mEq/L (98-109); Glucose 88 mg/dL (70-99); Osmolality,Calculated 285 (280-300); Potassium 3.4 mEq/L (3.5-4.5); Sodium 139 mEq/L (136-145); eGFR For African Americans > 60 (> 60); eGFR For Non-African Americans > 60 (> 60)
[2016-03-23] MEDS: *HR* Heparin 5,000 UNIT/ML VIAL SQ SCH ×2 (06:19→18:30)
[2016-03-23] MEDS: *HR* Morphine 2 MG/ML SYRINGE IV PRN ×4 (06:24→20:31)
[2016-03-23] MEDS: Pantoprazole 40 MG VIAL IVP SCH (09:16)
[2016-03-23] MEDS: 0.9 % Sodium Chloride 1,000 ML IVC SCH ×2 (09:40→17:52)
[2016-03-23] MEDS ORDERED: Polyethylene Glycol 3350 255 GM POWDER PO ONE (13:56)
--- NOTE | 2016-03-23 14:48 | General Surgery Progress Note ---
Date of Encounter: 03/23/16 Time of Encounter: 14:45 - Assessment and Plan (1) Enterocutaneous fistula Current Visit: Yes Status: Acute Fistulogram complete to shows evidnece of rectocutaneous fistula Clear liquid diet today Bowel prep- Miralax and Gatorade Dulcolax NPO after midnight Plan for colonoscopy 03/24/[address] Osullivan- consent complete Supportive care/pain control IV fluids DVT prophylaxis (2) Hypokalemia Current Visit: No Status: Acute Improved today at 3.4 Replace potassium Repeat BMP in the am Subjective Patient reports: no new complaints, feels better, still having pain, pain is less, voiding w/o difficulty, flatus, afebrile Objective Vital Signs - Last 8 Hours Temp Pulse Resp BP Pulse Ox 03/23/16 11:02 98.5 F 73 18 125/78 97 03/23/16 08:14 97.8 F 74 16 127/82 93 L Intake and Output 03/22/16 03/23/16 03/23/16 23:59 07:59 15:59 Intake Total 300 / 1780 100 / 100 1000 / 1000 Output Total 550 / 550 500 / 500 400 / 400 Balance -250 / 1230 -400 / -400 600 / 600 Intake: IV Fluids 100 / 1100 100 / 100 1000 / 1000 0.9 % Sodium Chloride 1, 1000 / 1000 000 ML @ 100 mls/hr IVC . Q10H [facility] Rx#:[id number] Zosyn 3.375 GM In 100 / 100 100 / 100 Dextrose 5% (Minibag+) 100 ML 100 ML @ 25 mls/hr IVPB Q8HR [facility]Y Rx#: [id number] Oral 200 / 680 0 / 0 0 / 0 Output: Urine 550 / 550 400 / 400 400 / 400 Stool 100 / 100 Other: Meal NPO Weight 91.3 kg Blood Glucose* 73 79 Patient Weight 03/23/16 23:59 Weight 91.3 kg - General physical appearance well developed, well nourished, no distress - Eyes normal ocular movement - ENT normal mucosa, atraumatic, normocephalic - Neck Neck exam: trachea midline - Respiratory normal respiratory effort, clear to auscultation - Cardiovascular Cardiovascular exam: Present: RRR - Abdomen Abdomen: Present: bowel sounds present, soft, tender, wound (Midline with ostomy appliance over enterocutaneous fistula; RLQ with old ileostomy site with scabbed area, no drainage noted) - Neurologic CN 2-12 grossly intact - Psychiatric oriented to time, oriented to person, oriented to place, speech is normal, memory intact - Labs 03/23/16 04:27 03/23/16 04:27 Diabetes panel 03/23/16 Range/Units 04:27 Sodium 139 (136-145) mEq/L Potassium 3.4 L (3.5-4.5) mEq/L Chloride 103 (98-109) mEq/L Carbon Dioxide 26 (19-29) mEq/L BUN 7 L (8-26) mg/dL Creatinine 0.93 (0.72-1.25) mg/dL Glucose 88 (70-99) mg/dL Calcium 8.0 L (8.6-10.8) mg/dL Calcium panel 03/23/16 Range/Units 04:27 Calcium 8.0 L (8.6-10.8) mg/dL Pituitary panel 03/23/16 Range/Units 04:27 Sodium 139 (136-145) mEq/L Potassium 3.4 L (3.5-4.5) mEq/L Chloride 103 (98-109) mEq/L Carbon Dioxide 26 (19-29) mEq/L BUN 7 L (8-26) mg/dL Creatinine 0.93 (0.72-1.25) mg/dL Glucose 88 (70-99) mg/dL Calcium 8.0 L (8.6-10.8) mg/dL Adrenal panel 03/23/16 Range/Units 04:27 Sodium 139 (136-145) mEq/L Potassium 3.4 L (3.5-4.5) mEq/L Chloride 103 (98-109) mEq/L Carbon Dioxide 26 (19-29) mEq/L BUN 7 L (8-26) mg/dL Creatinine 0.93 (0.72-1.25) mg/dL Glucose 88 (70-99) mg/dL Calcium 8.0 L (8.6-10.8) mg/dL Consult Discharge Plan - Plan Referrals: Pamela Oneil DO [Primary Care Provider] - - Attending Attestation I examined this patient and my medical decision-making was reviewed with the CUSTOMER SUPPORT EXECUTIVE/PA/Advanced Practice Nurse/Resident Physician. I agree with the documented findings, disposition and treatment plan as described except to the extent set forth below.
[2016-03-23] MEDS: Ondansetron 4 MG/2 ML VIAL IVP PRN (17:49)
[2016-03-24] MEDS: Piperacillin/Tazobactam 3.375 GM in D5% in Water (Mini-Bag+) 100 ML IVPB SCH ×3 (00:08→16:56)
[2016-03-24] MEDS: *HR* Morphine 2 MG/ML SYRINGE IV PRN ×5 (02:16→20:20)
[2016-03-24] MEDS: 0.9 % Sodium Chloride 1,000 ML IVC SCH (04:31)
[2016-03-24 05:49] LABS: BUN/Creatinine Ratio 5 (6-26); Calcium 8.3 mg/dL (8.6-10.8); Carbon Dioxide 25 mEq/L (19-29); Chloride 106 mEq/L (98-109); Glucose 89 mg/dL (70-99); Osmolality,Calculated 287 (280-300); Potassium 3.4 mEq/L (3.5-4.5); Sodium 140 mEq/L (136-145); eGFR For African Americans > 60 (> 60); eGFR For Non-African Americans > 60 (> 60)
[2016-03-24 05:50] LABS: Blood Urea Nitrogen 5 mg/dL (8-26)
[2016-03-24] MEDS: Ondansetron 4 MG/2 ML VIAL IVP PRN (05:56)
[2016-03-24] MEDS: Pantoprazole 40 MG VIAL IVP SCH (07:51)
[2016-03-24] MEDS: *HR* Heparin 5,000 UNIT/ML VIAL SQ SCH ×2 (07:51→18:21)
[2016-03-24] MEDS ORDERED: *HR* Midazolam HCl 5 MG/5 ML VIAL IVP ONE (08:32)
[2016-03-24] MEDS ORDERED: *HR* FentaNYL (PF) 100 MCG/2 ML VIAL ONE (08:33)
[2016-03-24] MEDS ORDERED: *HR* FentaNYL (PF) 100 MCG/2 ML VIAL IVP PRN (08:37)
[2016-03-24] MEDS ORDERED: Simethicone 40 MG/0.6 ML MLS IR ONE (08:37)
[2016-03-24] MEDS ORDERED: *HR* Midazolam HCl 5 MG/5 ML VIAL IVP PRN (08:37)
--- NOTE | 2016-03-24 08:37 | Pre-Sedation Evaluation ---
Pre-sedation evaluation - Pre-sedation checklist Date of procedure: 03/24/16 Recent Vitals: Last Vital Signs Temp 97.2 F L 03/24/16 08:30 Pulse 88 03/24/16 08:30 Resp 18 03/24/16 08:30 BP 153/81 03/24/16 08:30 Pulse Ox 96 03/24/16 08:30 H&P (including ROS) documented in medical record: Yes Previous reaction to sedatives/anesthetics: No Dietary Status: NPO after Midnight Airway Assessment: Patient can open mouth completely, TMJ function normal Dentition: No loose teeth or bridges Possible difficult airway: No ASA Classification *see protocol: CLASS II-Mild systemic disease
[2016-03-24] MEDS ORDERED: Lidocaine 1% 20 ML MDV INFILT ONE (12:10)
[2016-03-24] MEDS ORDERED: Potassium Chloride 40 MEQ, Lidocaine 1% 2 ML in D5% in Water 500 ML IVPB ONE (15:09)
[2016-03-24] MEDS ORDERED: 0.9 % Sodium Chloride 1,000 ML IVC SCH (16:13)
[2016-03-25] MEDS: *HR* Morphine 2 MG/ML SYRINGE IV PRN ×6 (00:15→23:46)
[2016-03-25] MEDS: Piperacillin/Tazobactam 3.375 GM in D5% in Water (Mini-Bag+) 100 ML IVPB SCH ×4 (00:15→23:47)
[2016-03-25 05:22] LABS: BUN/Creatinine Ratio 3 (6-26); Blood Urea Nitrogen 3 mg/dL (8-26); Carbon Dioxide 27 mEq/L (19-29); Chloride 106 mEq/L (98-109); Glucose 85 mg/dL (70-99); Osmolality,Calculated 284 (280-300); Potassium 3.7 mEq/L (3.5-4.5); Sodium 139 mEq/L (136-145); eGFR For African Americans > 60 (> 60); eGFR For Non-African Americans > 60 (> 60)
[2016-03-25] MEDS: *HR* Heparin 5,000 UNIT/ML VIAL SQ SCH ×2 (06:17→17:58)
[2016-03-25] MEDS: Pantoprazole 40 MG VIAL IVP SCH (08:09)
--- NOTE | 2016-03-25 13:57 | General Surgery Progress Note ---
Date of Encounter: 03/25/16 Time of Encounter: 13:00 - Assessment and Plan (1) Enterocutaneous fistula Current Visit: Yes Status: Acute Gastrograffin enema shows evidence of rectocutaneous fistuls S/P colonoscopy and removal of suture from the bowel- suspected cause of fistula NPO except ice chips TPN to start today (total fluid rate 100ml/hour; MIV + TPN) PICC line placement Social service consult- set up home TPN and PICC line Supportive care/pain control DVT prophylaxis (2) Hypokalemia Current Visit: No Status: Resolved Normal today at 3.7 (3) DVT prophylaxis Current Visit: No Status: Acute Continue heparin 5,000 units SQ twice daily for DVT prophylaxis Subjective Patient reports: no new complaints, feels better, still having pain, pain is less, tolerating liquids well, voiding w/o difficulty, flatus, no bowel movement , afebrile, other (Wound vac leaked last night) Objective Vital Signs - Last 8 Hours Temp Pulse Resp BP Pulse Ox 03/25/16 11:59 98.6 F 71 16 120/74 96 03/25/16 08:42 98.3 F 69 16 124/79 95 Intake and Output 03/24/16 03/25/16 03/25/16 23:59 07:59 15:59 Intake Total 340 / 340 606 / 606 Output Total 525 / 525 875 / 875 1000 / 1000 Balance -185 / -185 -269 / -269 -1000 / -1000 Intake: IV Fluids 100 / 100 406 / 406 0.9 % Sodium Chloride 1, 406 / 406 000 ML @ 50 mls/hr IVC . Q20H [facility] Rx#:[id number] Zosyn 3.375 GM In 100 / 100 Dextrose 5% (Minibag+) 100 ML 100 ML @ 25 mls/hr IVPB Q8HR [facility]Y Rx#: [id number] Oral 240 / 240 200 / 200 Output: Urine 525 / 525 875 / 875 1000 / 1000 Wound Drainage 0 / 0 Right Lower Abdomen 0 / 0 Other: Blood Glucose* 109 - General physical appearance well developed, no distress - Eyes normal ocular movement - ENT normal mucosa, atraumatic, normocephalic - Neck Neck exam: trachea midline - Respiratory normal respiratory effort, clear to auscultation - Cardiovascular Cardiovascular exam: Present: RRR - Abdomen Abdomen: Present: bowel sounds present, soft, tender, wound (Midline with wound vac intact (changed today)) - Genitourinary other (urine clear, yellow) - Integumentary no rash, no growths - Neurologic CN 2-12 grossly intact - Musculoskeletal normal gait, normal posture - Psychiatric oriented to time, oriented to person, oriented to place, speech is normal, memory intact - Labs 03/23/16 04:27 03/25/16 04:48 Diabetes panel 03/25/16 Range/Units 04:48 Sodium 139 (136-145) mEq/L Potassium 3.7 (3.5-4.5) mEq/L Chloride 106 (98-109) mEq/L Carbon Dioxide 27 (19-29) mEq/L BUN 3 L (8-26) mg/dL Creatinine 1.03 (0.72-1.25) mg/dL Glucose 85 (70-99) mg/dL Calcium 8.0 L (8.6-10.8) mg/dL Calcium panel 03/25/16 Range/Units 04:48 Calcium 8.0 L (8.6-10.8) mg/dL Pituitary panel 03/25/16 Range/Units 04:48 Sodium 139 (136-145) mEq/L Potassium 3.7 (3.5-4.5) mEq/L Chloride 106 (98-109) mEq/L Carbon Dioxide 27 (19-29) mEq/L BUN 3 L (8-26) mg/dL Creatinine 1.03 (0.72-1.25) mg/dL Glucose 85 (70-99) mg/dL Calcium 8.0 L (8.6-10.8) mg/dL Adrenal panel 03/25/16 Range/Units 04:48 Sodium 139 (136-145) mEq/L Potassium 3.7 (3.5-4.5) mEq/L Chloride 106 (98-109) mEq/L Carbon Dioxide 27 (19-29) mEq/L BUN 3 L (8-26) mg/dL Creatinine 1.03 (0.72-1.25) mg/dL Glucose 85 (70-99) mg/dL Calcium 8.0 L (8.6-10.8) mg/dL Consult Discharge Plan - Plan Referrals: Pamela Oneil DO [Primary Care Provider] -
[2016-03-25] MEDS ORDERED: D10% in Water 500 ML IV PRN (14:04)
--- NOTE | 2016-03-25 14:10 | Physician Discharge Referral ---
Home Health/Hosp Referral Info Transfer to: Home Health Attending Provider: Dr. Jesus Osullivan Provider in Charge Post Discharge: Other (Dr. 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 (2) Hypokalemia Priority: Secondary Status: Resolved (3) DVT prophylaxis Priority: Secondary Status: Acute - Respiratory Orders None - Dressing/Wound Care Site: Midline- abdomen Type of Dressing/Treatments w/Frequency: Wound vac- small black foam; 150mmHG continuous suction; change every MWF - Diet/Nutrition Diet/Nutrition: List: NPO - Activity Activity Orders: Up ad thee - Services Needed Following services are medically necessary services: Nursing, Home Infusion Home Care Orders: Night cycle TPN- see Rx - Transfer Medications Prescriptions: Ascorbic Acid [Vitamin C] 500 mg PO BID #60 tablet Docusate [Colace] 100 mg PO BID PRN #60 capsule PRN Reason: Constipation OxyCODONE/APAP 10/325 [Percocet 10/325 MG] 1 tab PO Q6H PRN #30 tablet PRN Reason: Pain Home Medications: Gabapentin [Neurontin] 800 mg PO TID 03/10/16 [History] Ondansetron ODT [Zofran ODT] 4 mg SL Q6HR PRN #30 tab.rapdis 03/15/16 [Rx] Omeprazole [PriLOSEC] 40 mg PO DAILY 03/22/16 [History] Ascorbic Acid [Vitamin C] 500 mg PO BID #60 tablet 03/25/16 [Rx] Docusate [Colace] 100 mg PO BID PRN #60 capsule 03/25/16 [Rx] OxyCODONE/APAP 10/325 [Percocet 10/325 MG] 1 tab PO Q6H PRN #30 tablet 03/25/16 [Rx] Allergies/Adverse Reactions: Allergies tramadol Adverse Reaction (Verified 03/10/16 07:30) Vomiting Certification: Further, I certify that my clinical findings support that this patient is homebound (i.e. absences from home require considerable and taxing effort and are for medical reasons or congregation services or infrequently or short duration when for other reasons) because: Homebound Reason: Patient requires assistance of a person or device to safely leave home, Post-surgery restriction and or conditions limit ability to leave home, Leaving home requires considerable and taxing effort due to condition Attestation: My signature below is to certify that this patient is under my care and that I, or nurse practitioner, or a physician's educational assistant teacher working with me, has a face-to -face encounter with this patient.
[2016-03-25] MEDS ORDERED: Lidocaine -MPF 1% 5 ML AMPUL INFILT ONE (16:02)
[2016-03-25] MEDS ORDERED: Clinimix E 5%-15% SOLUTION 2,000 ML with MVI, adult with vitamin K 10 ML IV SCH (17:00)
[2016-03-25] MEDS: 0.9 % Sodium Chloride 1,000 ML IVC SCH (18:00)
[2016-03-26] MEDS: *HR* Morphine 2 MG/ML SYRINGE IV PRN ×5 (04:05→23:14)
[2016-03-26 04:23] LABS: BUN/Creatinine Ratio 3 (6-26); Calcium 8.4 mg/dL (8.6-10.8); Carbon Dioxide 24 mEq/L (19-29); Chloride 106 mEq/L (98-109); Glucose 119 mg/dL (70-99); Magnesium 1.9 mg/dL (1.6-2.6); Osmolality,Calculated 286 (280-300); Phosphorous 3.8 mg/dL (2.3-4.7); Potassium 3.4 mEq/L (3.5-4.5); Sodium 139 mEq/L (136-145); eGFR For African Americans > 60 (> 60); eGFR For Non-African Americans > 60 (> 60)
[2016-03-26 04:40] LABS: Blood Urea Nitrogen 3 mg/dL (8-26)
[2016-03-26] MEDS: *HR* Heparin 5,000 UNIT/ML VIAL SQ SCH ×2 (06:07→17:43)
[2016-03-26] MEDS: Pantoprazole 40 MG VIAL IVP SCH (08:31)
[2016-03-26] MEDS ORDERED: D5% in Water 1,000 ML IV PRN (08:31)
[2016-03-26] MEDS ORDERED: *HR* Dextrose 50 % in Water (Syg) 50 ML SYRINGE IVP PRN (08:31)
[2016-03-26] MEDS: Piperacillin/Tazobactam 3.375 GM in D5% in Water (Mini-Bag+) 100 ML IVPB SCH ×3 (08:31→23:15)
[2016-03-26] MEDS ORDERED: Dextrose Gel 15 GM PO PRN ×2 (08:31)
[2016-03-26] MEDS: Insulin LISPRO 300 UNITS/3 ML VIAL SQ SCH ×2 (12:59→17:57)
--- NOTE | 2016-03-26 14:27 | General Surgery Progress Note ---
Date of Encounter: 03/26/16 Time of Encounter: 14:00 - Assessment and Plan (1) Enterocutaneous fistula Current Visit: Yes Status: Acute Gastrograffin enema shows evidence of rectocutaneous fistuls S/P colonoscopy and removal of suture from the bowel- suspected cause of fistula NPO except ice chips Continue TPN (switch to night cycle tomorrow 03/27/16) PICC line placement Social service consult- set up home TPN and PICC line/wound vac [facility] states that they will not give final decision on wound vac approval until Tuesday03/29/16 Supportive care/pain control DVT prophylaxis (2) DVT prophylaxis Current Visit: No Status: Acute Continue heparin 5,000 units SQ twice daily for DVT prophylaxis Subjective Patient reports: feels better, still having pain, pain is less, voiding w/o difficulty, flatus, afebrile Objective Vital Signs - Last 8 Hours Temp Pulse Resp BP Pulse Ox 03/26/16 11:00 98.1 F 71 18 120/71 96 Intake and Output 03/25/16 03/26/16 03/26/16 23:59 07:59 15:59 Intake Total 100 / 100 350 / 350 1020 / 1020 Output Total 1025 / 1025 875 / 875 1075 / 1075 Balance -925 / -925 -525 / -525 -55 / -55 Intake: IV Fluids 100 / 100 350 / 350 850 / 850 0.9 % Sodium Chloride 1, 750 / 750 000 ML @ 50 mls/hr IVC . Q20H [facility] Rx#:[id number] Intralipid 20% 250 ML @ 250 / 250 21 mls/hr IVPB DAILY@1700 [facility] Rx#:[id number] Zosyn 3.375 GM In 100 / 100 100 / 100 100 / 100 Dextrose 5% (Minibag+) 100 ML 100 ML @ 25 mls/hr IVPB Q8HR [facility] Rx#: [id number] Oral 0 / 0 0 / 0 170 / 170 Output: Urine 1025 / 1025 875 / 875 1075 / 1075 Wound Drainage 0 / 0 Medial Abdomen 0 / 0 Other: Meal Lunch Percent of Meal Consumed 0% Weight 91.3 kg Blood Glucose* 111 102 Patient Weight 03/26/16 23:59 Weight 91.3 kg - General physical appearance well developed, well nourished, no distress - Eyes normal ocular movement - ENT normal mucosa, atraumatic, normocephalic - Neck Neck exam: trachea midline - Respiratory normal respiratory effort, clear to auscultation - Cardiovascular Cardiovascular exam: Present: RRR - Abdomen Abdomen: Present: bowel sounds present, soft, tender (expected post-operative tenderness), wound (Midline with wound vac intact) - Incision Incision: Present: clean and dry (RLQ), intact - Genitourinary other (clear, yellow urine) - Neurologic CN 2-12 grossly intact - Musculoskeletal normal gait, normal posture - Psychiatric oriented to time, oriented to person, oriented to place, speech is normal, memory intact - Labs 03/23/16 04:27 03/26/16 03:56 Diabetes panel 03/26/16 Range/Units 03:56 Sodium 139 (136-145) mEq/L Potassium 3.4 L (3.5-4.5) mEq/L Chloride 106 (98-109) mEq/L Carbon Dioxide 24 (19-29) mEq/L BUN 3 L (8-26) mg/dL Creatinine 0.93 (0.72-1.25) mg/dL Glucose 119 H (70-99) mg/dL Calcium 8.4 L (8.6-10.8) mg/dL Calcium panel 03/25/16 03/26/16 Range/Units 13:50 03:56 Calcium 8.4 L (8.6-10.8) mg/dL Phosphorus 3.0 3.8 (2.3-4.7) mg/dL Pituitary panel 03/26/16 Range/Units 03:56 Sodium 139 (136-145) mEq/L Potassium 3.4 L (3.5-4.5) mEq/L Chloride 106 (98-109) mEq/L Carbon Dioxide 24 (19-29) mEq/L BUN 3 L (8-26) mg/dL Creatinine 0.93 (0.72-1.25) mg/dL Glucose 119 H (70-99) mg/dL Calcium 8.4 L (8.6-10.8) mg/dL Adrenal panel 03/26/16 Range/Units 03:56 Sodium 139 (136-145) mEq/L Potassium 3.4 L (3.5-4.5) mEq/L Chloride 106 (98-109) mEq/L Carbon Dioxide 24 (19-29) mEq/L BUN 3 L (8-26) mg/dL Creatinine 0.93 (0.72-1.25) mg/dL Glucose 119 H (70-99) mg/dL Calcium 8.4 L (8.6-10.8) mg/dL Consult Discharge Plan - Plan Referrals: Santos Osullivan DO [Partnered Physician] - 04/06/16 10:50 am Pamela Oneil DO [Primary Care Provider] - Prescriptions: Ascorbic Acid [Vitamin C] 500 mg PO BID #60 tablet Docusate [Colace] 100 mg PO BID PRN #60 capsule PRN Reason: Constipation OxyCODONE/APAP 10/325 [Percocet 10/325 MG] 1 tab PO Q6H PRN #30 tablet PRN Reason: Pain - Attending Attestation I examined this patient and my medical decision-making was reviewed with the INTAKE CLINICIAN/PA/Advanced Practice Nurse/Resident Physician. I agree with the documented findings, disposition and treatment plan as described except to the extent set forth below.
[2016-03-26] MEDS ORDERED: Potassium Chloride 20 MEQ, Lidocaine 1% 2 ML in D5% in Water 250 ML IVPB ONE (14:28)
[2016-03-26] MEDS ORDERED: D10% in Water 500 ML IV PRN ×2 (16:01→16:10)
[2016-03-26] MEDS ORDERED: Clinimix E 5%-20% SOLUTION 2,000 ML with MVI, adult with vitamin K 10 ML IV SCH (17:00)
[2016-03-27] MEDS: Insulin LISPRO 300 UNITS/3 ML VIAL SQ SCH ×4 (02:06→17:36)
[2016-03-27] MEDS: *HR* Morphine 2 MG/ML SYRINGE IV PRN ×5 (02:58→20:14)
[2016-03-27 04:43] LABS: BUN/Creatinine Ratio 7 (6-26); Blood Urea Nitrogen 7 mg/dL (8-26); Calcium 8.4 mg/dL (8.6-10.8); Carbon Dioxide 23 mEq/L (19-29); Chloride 106 mEq/L (98-109); Glucose 126 mg/dL (70-99); Magnesium 1.9 mg/dL (1.6-2.6); Osmolality,Calculated 286 (280-300); Phosphorous 3.6 mg/dL (2.3-4.7); Potassium 3.8 mEq/L (3.5-4.5); Sodium 138 mEq/L (136-145); eGFR For African Americans > 60 (> 60); eGFR For Non-African Americans > 60 (> 60)
[2016-03-27] MEDS: *HR* Heparin 5,000 UNIT/ML VIAL SQ SCH ×2 (06:13→17:48)
[2016-03-27] MEDS: Pantoprazole 40 MG VIAL IVP SCH (08:41)
[2016-03-27] MEDS: Piperacillin/Tazobactam 3.375 GM in D5% in Water (Mini-Bag+) 100 ML IVPB SCH ×2 (08:41→16:25)
--- NOTE | 2016-03-27 10:11 | General Surgery Progress Note ---
Date of Encounter: 03/27/16 Time of Encounter: 10:00 - Assessment and Plan (1) Enterocutaneous fistula Current Visit: Yes Status: Acute Clinically stable enterocutaneous fistula currently being treated with negative pressure wound therapy. He is on bowel rest and TPN. Subjective Narrative: The patient has a colocutaneous fistula that is currently being treated with wound VAC he is not having any abdominal pain. He feels well and we will continue with current treatment plan. Objective Vital Signs - Last 8 Hours Temp Pulse Resp BP Pulse Ox 03/27/16 06:51 98.7 F 73 16 120/77 94 L 03/27/16 04:03 98.4 F 82 17 114/68 93 L Intake and Output 03/26/16 03/27/16 03/27/16 23:59 07:59 15:59 Intake Total 150 / 150 100 / 100 Output Total 1700 / 1700 425 / 425 Balance -1550 / -1550 -325 / -325 Intake: IV Fluids 100 / 100 100 / 100 Zosyn 3.375 GM In 100 / 100 100 / 100 Dextrose 5% (Minibag+) 100 ML 100 ML @ 25 mls/hr IVPB Q8HR [facility] Rx#: [id number] Oral 50 / 50 Output: Urine 1400 / 1400 425 / 425 Wound Drainage 300 / 300 Medial Abdomen 300 / 300 Other: Meal Dinner Percent of Meal Consumed 0% Weight 91.2 kg Blood Glucose* 111 117 Patient Weight 03/27/16 23:59 Weight 91.2 kg - General physical appearance well developed, chronically ill - Respiratory normal expansion, normal respiratory effort, clear to percussion, clear to auscultation - Cardiovascular Cardiovascular exam: Present: RRR, no murmurs/rubs/gallops - Abdomen Abdomen: Present: bowel sounds present, soft, non tender Additional Comments: Complex dressing in place the midline. This is a combination wound vac and red rubber drainage tube. - Neurologic normal coordination, normal sensation - Psychiatric oriented to time, oriented to person, oriented to place, speech is normal, memory intact - Labs 03/23/16 04:27 03/27/16 04:20 Diabetes panel 03/27/16 Range/Units 04:20 Sodium 138 (136-145) mEq/L Potassium 3.8 (3.5-4.5) mEq/L Chloride 106 (98-109) mEq/L Carbon Dioxide 23 (19-29) mEq/L BUN 7 L (8-26) mg/dL Creatinine 0.94 (0.72-1.25) mg/dL Glucose 126 H (70-99) mg/dL Calcium 8.4 L (8.6-10.8) mg/dL Calcium panel 03/27/16 Range/Units 04:20 Calcium 8.4 L (8.6-10.8) mg/dL Phosphorus 3.6 (2.3-4.7) mg/dL Pituitary panel 03/27/16 Range/Units 04:20 Sodium 138 (136-145) mEq/L Potassium 3.8 (3.5-4.5) mEq/L Chloride 106 (98-109) mEq/L Carbon Dioxide 23 (19-29) mEq/L BUN 7 L (8-26) mg/dL Creatinine 0.94 (0.72-1.25) mg/dL Glucose 126 H (70-99) mg/dL Calcium 8.4 L (8.6-10.8) mg/dL Adrenal panel 03/27/16 Range/Units 04:20 Sodium 138 (136-145) mEq/L Potassium 3.8 (3.5-4.5) mEq/L Chloride 106 (98-109) mEq/L Carbon Dioxide 23 (19-29) mEq/L BUN 7 L (8-26) mg/dL Creatinine 0.94 (0.72-1.25) mg/dL Glucose 126 H (70-99) mg/dL Calcium 8.4 L (8.6-10.8) mg/dL Consult Discharge Plan - Plan Referrals: Santos Osullivan DO [Partnered Physician] - 04/06/16 10:50 am Pamela Oneil DO [Primary Care Provider] - Prescriptions: Ascorbic Acid [Vitamin C] 500 mg PO BID #60 tablet Docusate [Colace] 100 mg PO BID PRN #60 capsule PRN Reason: Constipation OxyCODONE/APAP 10/325 [Percocet 10/325 MG] 1 tab PO Q6H PRN #30 tablet PRN Reason: Pain
[2016-03-27] MEDS: 0.9 % Sodium Chloride 1,000 ML IVC SCH (13:20)
[2016-03-27] MEDS: Clinimix E 5%-20% SOLUTION 2,000 ML with MVI, adult with vitamin K 10 ML IV SCH (16:26)
[2016-03-28] MEDS: *HR* Morphine 2 MG/ML SYRINGE IV PRN ×11 (00:34→23:14)
[2016-03-28] MEDS: Piperacillin/Tazobactam 3.375 GM in D5% in Water (Mini-Bag+) 100 ML IVPB SCH ×4 (00:34→23:13)
[2016-03-28] MEDS: Insulin LISPRO 300 UNITS/3 ML VIAL SQ SCH ×4 (00:35→18:03)
[2016-03-28] MEDS: Ondansetron 4 MG/2 ML VIAL IVP PRN (02:12)
[2016-03-28] MEDS: *HR* Heparin 5,000 UNIT/ML VIAL SQ SCH ×2 (06:00→18:13)
[2016-03-28] MEDS: 0.9 % Sodium Chloride 1,000 ML IVC SCH ×3 (06:10→20:30)
[2016-03-28] MEDS: Clinimix E 5%-20% SOLUTION 2,000 ML with MVI, adult with vitamin K 10 ML IV SCH ×2 (07:07→16:51)
[2016-03-28] MEDS: Pantoprazole 40 MG VIAL IVP SCH (07:55)
--- NOTE | 2016-03-28 09:55 | General Surgery Progress Note ---
Date of Encounter: 03/28/16 Time of Encounter: 09:40 - Assessment and Plan (1) Enterocutaneous fistula Current Visit: Yes Status: Acute Clinically stable enterocutaneous fistula currently being treated with negative pressure wound therapy. He is on bowel rest and TPN. Subjective Narrative: The patient feels well and is not having any pain. He states he has some mild itching around his wound. The midline fascia is draining 100 mL on last measurement using combination red rubber and negative pressure wound dressing. He has a stable and improving colocutaneous fistula. No change in therapy for today. Objective Vital Signs - Last 8 Hours Temp Pulse Resp BP Pulse Ox 03/28/16 06:51 98.9 F 84 16 94/60 94 L 03/28/16 05:13 98.4 F 81 18 101/63 94 L Intake and Output 03/27/16 03/28/16 03/28/16 23:59 07:59 15:59 Intake Total 250 / 250 2410 / 2410 100 / 100 Output Total 1175 / 1175 875 / 875 Balance -925 / -925 1535 / 1535 100 / 100 Intake: IV Fluids 250 / 250 2410 / 2410 100 / 100 Clinimix E 5%-20% 50 / 50 1960 / 1959 SOLUTION 2,000 ML @ 158 mls/hr IV .[id number] [facility] with M.v.i. Adult 10 ml Rx#:[id number] 0.9 % Sodium Chloride 1, 100 / 100 100 / 100 100 / 100 000 ML @ 50 mls/hr IVC . Q20H COUNTS INCLUDE 234 BEDS AT THE [facility] Rx#:[id number] Intralipid 20% 250 ML @ 250 / 250 21 mls/hr IVPB DAILY@1700 COUNTS INCLUDE 234 BEDS AT THE [facility] Rx#:[id number] Zosyn 3.375 GM In 100 / 100 100 / 100 Dextrose 5% (Minibag+) 100 ML 100 ML @ 25 mls/hr IVPB Q8HR COUNTS INCLUDE 234 BEDS AT THE [facility] Rx#: [id number] Oral 0 / 0 0 / 0 Output: Urine 1175 / 1175 775 / 775 Gastric Drainage 100 / 100 Wound Drainage 0 / 0 Medial Abdomen 0 / 0 Other: Meal NPO Percent of Meal Consumed 0% Weight 89.312 kg Blood Glucose* 112 131 Patient Weight 03/28/16 23:59 Weight 89.312 kg - General physical appearance well developed, well nourished, no pain - Respiratory normal expansion, normal respiratory effort, clear to percussion, clear to auscultation - Cardiovascular Cardiovascular exam: Present: RRR, no murmurs/rubs/gallops - Abdomen Abdomen: Present: bowel sounds present, soft (Midline colocutaneous fistula draining with negative pressure wound therapy) - Neurologic normal coordination, normal sensation - Psychiatric oriented to time, oriented to person, oriented to place, speech is normal, memory intact - Labs 03/23/16 04:27 03/27/16 04:20 Consult Discharge Plan - Plan Referrals: Santos Osullivan DO [Partnered Physician] - 04/06/16 10:50 am Pamela Oneil DO [Primary Care Provider] - Prescriptions: Ascorbic Acid [Vitamin C] 500 mg PO BID #60 tablet Docusate [Colace] 100 mg PO BID PRN #60 capsule PRN Reason: Constipation OxyCODONE/APAP 10/325 [Percocet 10/325 MG] 1 tab PO Q6H PRN #30 tablet PRN Reason: Pain
[2016-03-29] MEDS: Insulin LISPRO 300 UNITS/3 ML VIAL SQ SCH ×3 (01:02→13:20)
[2016-03-29] MEDS: *HR* Morphine 2 MG/ML SYRINGE IV PRN ×4 (02:36→11:57)
[2016-03-29] MEDS: *HR* Heparin 5,000 UNIT/ML VIAL SQ SCH (06:28)
[2016-03-29] MEDS: Piperacillin/Tazobactam 3.375 GM in D5% in Water (Mini-Bag+) 100 ML IVPB SCH (08:30)
[2016-03-29] MEDS: Pantoprazole 40 MG VIAL IVP SCH (08:30)
[2016-03-29] MEDS: Clinimix E 5%-20% SOLUTION 2,000 ML with MVI, adult with vitamin K 10 ML IV SCH (08:38)
[2016-03-29] MEDS: 0.9 % Sodium Chloride 1,000 ML IVC SCH (08:44)
--- NOTE | 2016-03-29 13:25 | Discharge Summary ---
Date of Encounter: 03/29/16 Time of Encounter: 13:00 - Discharge Diagnosis (1) Enterocutaneous fistula Priority: Primary Status: Acute (2) DVT prophylaxis Priority: Secondary Status: Acute - Discharge Medications Prescriptions: Ascorbic Acid [Vitamin C] 500 mg PO BID #60 tablet Docusate [Colace] 100 mg PO BID PRN #60 capsule PRN Reason: Constipation OxyCODONE/APAP 10/325 [Percocet 10/325 MG] 1 tab PO Q6H PRN #30 tablet PRN Reason: Pain Zinc 50 mg PO DAILY #14 tablet Home Medications: Gabapentin [Neurontin] 800 mg PO TID 03/10/16 [History] Ondansetron ODT [Zofran ODT] 4 mg SL Q6HR PRN #30 tab.rapdis 03/15/16 [Rx] Omeprazole [PriLOSEC] 40 mg PO DAILY 03/22/16 [History] Ascorbic Acid [Vitamin C] 500 mg PO BID #60 tablet 03/25/16 [Rx] Docusate [Colace] 100 mg PO BID PRN #60 capsule 03/25/16 [Rx] OxyCODONE/APAP 10/325 [Percocet 10/325 MG] 1 tab PO Q6H PRN #30 tablet 03/25/16 [Rx] Zinc 50 mg PO DAILY #14 tablet 03/29/16 [Rx] Allergies/Adverse Reactions: Allergies tramadol Adverse Reaction (Verified 03/10/16 07:30) Vomiting General Surgery Exam Initial Vital Signs Temp Pulse Resp BP Pulse Ox 98.6 F 95 18 133/69 95 03/21/16 19:02 03/21/16 19:02 03/21/16 19:02 03/21/16 19:02 03/21/16 19:02 - General physical appearance well developed, well nourished, no distress - Eyes normal ocular movement - ENT normal mucosa, atraumatic, normocephalic - Neck trachea midline - Respiratory normal respiratory effort, clear to auscultation - Cardiovascular Cardiovascular exam: Present: RRR, 15, 16 - Abdomen Abdomen general surgery: Present: bowel sounds present, soft, non tender, wound (RLQ with open area draining serousang. drainage (small amount), dry 4X4 applied ; Wound vac to midline, changed today) - Incision Incision: Present: serosanguinous, open (RLQ with dry dressing; Midline with wound vac) - Integumentary Integumentary general surgery: Present: warm and dry - Neurologic Present: CN 2-12 grossly intact - Musculoskeletal Present: normal gait, normal posture - Psychiatric Psychiatric general surgery: Present: appropriate, oriented to person, oriented to place, oriented to time, speech is normal, memory intact Date of admission: 03/22/16 18:03 Primary care physician: Pamela Oneil DO Consults: 03/25/16 12:45 Consult to Invasive Line Access Team [CONS] Routine Reason for Consult: PICC line placement Line Type: PICC PICC line indications: Parental nutrition Time Notified: 12:45 Call Completed: Yes 03/25/16 12:46 consult to load tallier [Consult to Nutrition] [CONS] Routine Comment: total fluid rate 100ml/hour (TPN + MIV) Consulting Provider: NUTRITION Reason for Dietary Consult: TPN Start and Manage 03/25/16 12:47 Consult to Reed Or Wind Instrument Tuner [CONS] Routine Reason for SW Consult: discharge planning- will need home wound vac and TPN 03/25/16 16:02 Consult to Invasive Line Access Team [CONS] Routine Reason for Consult: Picc Line Insertion Line Type: EPIV [facility] Anticipated date of discharge: 03/29/16 - Patient Status Disposition: Home Health Service Condition: Good Functional capacity at discharge: independent ambulation Overall status at discharge: patient is progressing back to baseline - Discharge Instructions Follow Up With: Santos Osullivan DO [Partnered Physician] - 04/06/16 10:50 am Pamela Oneil DO [Primary Care Provider] - Additional Instructions: May shower, not tub baths Wound vac at 175mmHG continuous suction- change every MWF and as needed if leaking per home health care RLQ- wash with soap and water and apply 4X4 gauze, tape to secure - Diet and Activity Activity: increase activity as tolerated Diet: other (clear liquids only) - Hospital Course Hospital course: Mr. Presley is a 55 year old male presented to the hospital with stool draining from an old midline incision. Recently s/p ileostomy reversal with Dr. Osullivan. Gastrograffin enema shows evidence of a colocutaneous fistula. The patient was placed on bowel rest, TPN therapy and negative pressure wound vac therapy. Will continue to treat conservatively. His vitals are stable and he is afebrile. Pain is well controlled. He is tolerating night cycle TPN. We will begin discharge planning and plan for home health care to manage the wound vac and TPN therapy. Plan for outpatient follow-up in the next 10-14 days. - Time Spent with Patient Total time spent providing and/or coordinating discharge services: Greater than 30 minutes Labs on day of discharge: Labs from last 24 hours 03/29/16 03/29/16 03/28/16 12:37 05:40 23:29 POC Glucose 89 216 H 138 H 03/28/16 17:02 POC Glucose 78 - Impressions ITS Impressions Fistulogram 03/23/16 08:00 IMPRESSION: Findings are highly suspicious for a rectocutaneous fistula. Findings correlate with the fistulous tract seen on CT exam from 03/21/2016. D/ / Manish Nguyen MD / Manish Nguyen MD Interpreting Provider: Manish Nguyen MD - Attending Attestation I examined this patient and my medical decision-making was reviewed with the WRITING TUTOR/PA/Advanced Practice Nurse/Resident Physician. I agree with the documented findings, disposition and treatment plan as described except to the extent set forth below.
[2016-03-29 13:51] VITALS: BP 110/71
[2016-03-29] MEDS ORDERED: *HR* OxyCODONE/APAP 10/325 TABLET PO ONE (14:08)
[2016-03-29] MEDS ORDERED: Clinimix E 5%-20% SOLUTION 2,000 ML with MVI, adult with vitamin K 10 ML IV SCH (17:00)
== END 2016-03-29 15:27 | disposition home health service (06) | DRG 254 ==
LOC: EMEROO 19:00 → 3ANU 19:00
PROVIDERS: ADMIT Surgery; ATTEND Surgery
PROC: ENDOCBX (2016-03-24 15:30)

== ENCOUNTER 2018-07-29 05:36 | Inpatient (IN) ==
--- NOTE | 2018-07-29 06:07 | Emergency Department Note ---
Disposition Clinical Impression: Abdominal pain Qualifiers: Abdominal location: epigastric Qualified Code(s): R10.13 - Epigastric pain Disposition: Still a Patient Condition: Fair Forms: ED Satisfaction Letter, Work/School Release Time of Disposition: 07:24 General Adult HPI - General Chief complaint: ED Abdominal Pain Stated complaint: abdominal pain Time Seen by Provider: 07/29/18 06:07 Source: patient Limitations: no limitations Nursing Notes Reviewed: Yes Vital Signs Reviewed: Yes - History of Present Illness HPI Narrative: Patient is a 49-year-old male presenting with abdominal pain and chest pain. Patient has history of hypertension, as well as in 2016 had a bowel resection following obstruction with colostomy and colectomy with multiple resections following. Patient states that over the past week he said generalized abdominal pain, which acutely worsened at 2100 today. He states the pain is in the mid epigastric region, described as constant with radiation into the chest, he has associated nausea with 3 total episodes of nonbloody nonbilious vomiting. He had his last bowel movement today and was wrecked to be normal. He is also had significant shortness of breath. He describes his symptoms worsen with any type of exertion. He is also had an episode of diaphoresis which started at 2100 is been continuing throughout the night. He denies history of similar symptoms in the past. He does take lisinopril per for his high blood pressure, he did take this yesterday, he denies history of abdominal aortic aneurysm or vascular surgery in the past. He has not taken anything for pain at this point. Pain Scale: 10 - Related Data Home Medications Medication Instructions Recorded Confirmed Gabapentin [Neurontin] 800 mg PO TID 03/10/16 03/22/16 Omeprazole [PriLOSEC] 40 mg PO DAILY 03/22/16 03/22/16 Previous Rx's Medication Instructions Recorded Ondansetron ODT [Zofran ODT] 4 mg SL Q6HR PRN #30 tab.rapdis 03/15/16 Ascorbic Acid [Vitamin C] 500 mg PO BID #60 tablet 03/25/16 Docusate [Colace] 100 mg PO BID PRN #60 capsule 03/25/16 OxyCODONE/APAP 10/325 [Percocet 1 tab PO Q6H PRN #30 tablet 03/25/16 10/325 MG] Zinc 50 mg PO DAILY #14 tablet 03/29/16 Acetaminophen with Codeine 1 each PO Q4-6H PRN #6 tablet 06/07/16 [Acetaminophen-Cod #3 Tablet] Ciprofloxacin [Cipro] 500 mg PO BID #14 tablet 09/19/16 metroNIDAZOLE [Flagyl] 500 mg PO ONCE #7 tablet 09/19/16 Allergies Allergy/AdvReac Type Severity Reaction Status Date / Time tramadol AdvReac Vomiting Verified 03/10/16 07:30 All systems ED: reviewed and negative except as stated. Review of Systems: As Per HPI Constitutional: Reports: chills. Denies: fever, weakness ENT ED: Denies: congestion Cardiovascular: Reports: chest pain, dyspnea on exertion. Denies: palpitations, edema, syncope Respiratory: Reports: dyspnea. Denies: cough, wheezes, hemoptysis, sputum production Gastrointestinal: Reports: abdominal pain, nausea, vomiting. Denies: diarrhea, constipation, hematemesis, melena, hematochezia Genitourinary: Denies: dysuria Musculoskeletal: Denies: back pain Neurological: Reports: weakness. Denies: headache, numbness, paresthesias, confusion Endocrine: Denies: fatigue Hematological/Lymphatic: Denies: easy bleeding, easy bruising Past Medical History - Past Medical History Attestation: Yes The following information was validated with the patient. Source: patient Medical history: Reports: asthma, GERD, hyperlipidemia, hypertension, kidney stones Surgical history: Reports: colectomy (secondary to diverticulitis and subsequent exploratory laparotomy for anastomotic leak with diverting ileostomy; 03/10/16 takedown of ileostomy) Psychiatric history: Reports: anxiety, depression - Social History Smoking Status: Never smoker Smokeless Tobacco Status: No Alcohol use: Reports: none Drug use: Reports: none Physical Exam - General Limitations: no limitations General appearance: alert, other (Patient is diaphoretic, shaking, states that he is in significant pain) - Head Head exam: atraumatic, normocephalic, normal inspection - Eye Eye exam: Present: normal appearance, PERRL, EOMI - ENT ENT exam: normal oropharynx, mucous membranes dry - Neck Neck exam: Present: normal inspection, full ROM, trachea midline - Chest Chest inspection: Present: normal inspection, symmetric chest wall rise - Respiratory Respiratory exam: Present: normal lung sounds bilaterally - Cardiovascular Cardiovascular exam: Present: regular rate, normal rhythm, normal heart sounds - Abdominal Exam Abdominal exam: Present: soft, tenderness (Patient was significant tenderness at the midepigastric extending throughout the mid abdomen into the right upper and left upper quadrants, with active guarding), guarding. Absent: distention, rebound, rigidity - Extremities Exam Extremities exam: Present: normal inspection, full ROM, normal capillary refill. Absent: tenderness, pedal edema, calf tenderness - Expanded Lower Extremity Exam Neurovascular/Tendon exam: Absent: motor deficit, sensory deficit, tendon deficit - Back Exam Back exam: Present: normal inspection, full ROM. Absent: tenderness - Neurological Exam Neurological exam: Present: alert, oriented X3 - Psychiatric Psychiatric exam: Present: normal affect, normal mood - Skin Skin exam: Present: warm, intact, normal color, diaphoresis. Absent: rash, pallor Course Vital Signs Temperature 97.7 F 07/29/18 05:37 Pulse Rate 67 07/29/18 05:37 Respiratory Rate 20 07/29/18 05:37 Blood Pressure 222/98 07/29/18 05:37 O2 Sat by Pulse Oximetry 99 07/29/18 05:37 Temperature 97.7 F 07/29/18 05:37 Pulse Rate 88 07/29/18 06:30 Respiratory Rate 22 07/29/18 06:15 Blood Pressure 193/93 07/29/18 06:30 O2 Sat by Pulse Oximetry 100 07/29/18 06:15 Oxygen Delivery Oxygen Delivery Room Air Medical Decision Making - [facility] Narrative Medical decision making narrative: Patient is a 57-year-old male whose presenting with Signa get abdominal pain that radiates into the chest. On initial evaluation, patient is hypertensive, he is diaphoretic and appears to uncomfortable with mid abdominal pain. He has active nausea with multiple episodes of vomiting while in the ER. No hematemesis or melena. Significant concern for intra-abdominal etiology given multiple abdominal surgeries, last bowel movement was today and remarked to be normal with gas being passed. Concern for obstruction versus ACS versus dissection. Patient was given a liter of fluids, given 1 nitroglycerin, aspirin as well as Zofran for the vomiting. CT dissection study was ordered to rule ou t dissection as well as further etiology. On reevaluation, following medications, patient has decreased nausea, continues to have some abdominal pain. Patient is also given fentanyl. Patient was signed out to the day team, Dr. Godoy and Dr. Mcwilliams. CTA currently pending. Disposition most likely admission. - Medical Records Medical records reviewed: Yes I reviewed the patient's medical records. - Lab Data Lab results reviewed: Yes I reviewed the patient's lab results. Result diagrams: 07/29/18 06:00 07/29/18 06:00 Lab Results 07/29/18 07/29/18 07/29/18 Range/Units 06:00 06:00 06:38 WBC 9.1 (4.3-11.1) K/mcL RBC 5.88 H (4.19-5.50) M/mcL Hgb 17.8 H (12.9-16.9) g/dL Hct 53.9 H (37.5-50.1) % MCV 91.7 (83.0-100.0) fL MCH 30.3 (28.0-33.3) pg MCHC 33.0 (31.6-35.5) g/dL RDW 13.9 (11.5-14.5) % Plt Count 197 (140-400) K/mcL MPV 10.6 (9.4-12.4) fL Immature Gran % 0.6 (0-4) % Seg Neutrophils % 74.5 % Lymphocytes % 15.5 % Monocytes % 8.1 % Eosinophils % 0.9 % Basophils % 0.4 % Neutrophils # 6.8 (1.6-8.9) K/mcL Lymphocytes # 1.4 (0.6-4.6) K/mcL Monocytes # 0.7 (0.0-1.3) K/mcL Eosinophils # 0.1 (0.0-0.6) K/mcL Basophils # 0.0 (0.0-0.2) K/mcL Sodium 139 (136-145) mEq/L Potassium 4.1 (3.5-5.1) mEq/L Chloride 101 (98-107) mEq/L Carbon Dioxide 27 (23-29) mEq/L BUN 16 (6-20) mg/dL Creatinine 1.30 (0.70-1.30) mg/dL Est GFR ( Amer) > 60 (> 60) Est GFR (Non-Af Amer) 57 L (> 60) BUN/Creatinine Ratio 12 (6-26) Glucose 156 H (70-105) mg/dL Calculated Osmolality 292 (280-300) Calcium 9.9 (8.6-10.3) mg/dL Total Bilirubin 0.6 (0.3-1.0) mg/dL Direct Bilirubin 0.1 (0.0-0.2) mg/dL Indirect Bilirubin 0.5 (0.0-1.2) mg/dL AST 21 (13-39) Units/L ALT 20 (7-52) Units/L Alkaline Phosphatase 127 H (34-104) Units/L Troponin I < 0.03 (< 0.04) ng/mL Serum Total Protein 7.8 (6.4-8.9) g/dL Albumin 4.5 (3.5-5.7) g/dL Globulin 3.3 (2.4-3.5) g/dL Albumin/Globulin Ratio 1.4 (1.1-2.2) Amylase 51 (29-103) Units/L Lipase 36 (11-82) Units/L Blood Type O NEGATIVE Antibody Screen NEGATIVE - Radiology Data Radiology results reviewed: Yes I reviewed the patient's radiology results. - EKG Data EKG #1 EKG attestation: Yes I reviewed and interpreted this EKG. EKG results narrative: EKG obtained at 0600 ventricular rate of 62, regular rhythm, borderline left axis, sinus rhythm, there is T wave inversion in leads 2, aVF, V5 and V6, no significant ST elevation, T wave inversions are new since EKG in 2015.
[2018-07-29 06:19] LABS: Basophils % 0.4 %; Eosinophils # 0.1 K/mcL (0.0-0.6); Eosinophils % 0.9 %; Hematocrit 53.9 % (37.5-50.1); Hemoglobin 17.8 g/dL (12.9-16.9); Immature Granulocytes % 0.6 % (0-4); Lymphocytes # 1.4 K/mcL (0.6-4.6); Lymphocytes % 15.5 %; Mean Corpuscular Hemoglobin 30.3 pg (28.0-33.3); Mean Corpuscular Volume 91.7 fL (83.0-100.0); Mean Platelet Volume 10.6 fL (9.4-12.4); Monocytes # 0.7 K/mcL (0.0-1.3); Monocytes % 8.1 %; Neutrophils # 6.8 K/mcL (1.6-8.9); Platelet Count 197 K/mcL (140-400); Red Blood Count 5.88 M/mcL (4.19-5.50); Red Cell Distribution Width 13.9 % (11.5-14.5); Segmented Neutrophils % 74.5 %; White Blood Count 9.1 K/mcL (4.3-11.1)
[2018-07-29] MEDS ORDERED: 0.9 % Sodium Chloride 1,000 ML IVC ONE (06:25)
[2018-07-29] MEDS ORDERED: Aspirin 81 MG TAB.CHEW PO ONE (06:25)
[2018-07-29] MEDS ORDERED: *HR* FentaNYL (PF) 100 MCG/2 ML VIAL IVP ONE ×2 (06:26→08:00)
[2018-07-29] MEDS ORDERED: Isovue-370 500 ML BOTTLE IVP ONE (06:26)
[2018-07-29] MEDS ORDERED: Nitroglycerin 0.4 MG TAB.SUBL SL ONE (06:26)
[2018-07-29 06:38] LABS: Alanine Aminotransferase 20 Units/L (7-52); Albumin 4.5 g/dL (3.5-5.7); Albumin/Globulin Ratio 1.4 (1.1-2.2); Alkaline Phosphatase 127 Units/L (34-104); Amylase 51 Units/L (29-103); Aspartate Amino Transferase 21 Units/L (13-39); BUN/Creatinine Ratio 12 (6-26); Bilirubin,Direct 0.1 mg/dL (0.0-0.2); Bilirubin,Indirect 0.5 mg/dL (0.0-1.2); Bilirubin,Total 0.6 mg/dL (0.3-1.0); Blood Urea Nitrogen 16 mg/dL (6-20); Calcium 9.9 mg/dL (8.6-10.3); Carbon Dioxide 27 mEq/L (23-29); Chloride 101 mEq/L (98-107); Globulin 3.3 g/dL (2.4-3.5); Glucose 156 mg/dL (70-105); Lipase 36 Units/L (11-82); Osmolality,Calculated 292 (280-300); Potassium 4.1 mEq/L (3.5-5.1); Sodium 139 mEq/L (136-145); Total Protein 7.8 g/dL (6.4-8.9); Troponin I < 0.03 ng/mL (< 0.04); eGFR For African Americans > 60 (> 60); eGFR For Non-African Americans 57 (> 60)
[2018-07-29] MEDS ORDERED: Ondansetron 4 MG/2 ML VIAL ONE (06:50)
[2018-07-29] MEDS: Ondansetron 4 MG/2 ML VIAL IVP ONE ×2 (06:54→08:02)
[2018-07-29] MEDS ORDERED: *HR* Morphine 2 MG/ML SYRINGE IVP ONE (07:45)
[2018-07-29] MEDS ORDERED: Promethazine 12.5 MG in 0.9 % Sodium Chloride 50 ML IVPB ONE (07:45)
[2018-07-29 07:53] LABS: Bilirubin,Urine Negative (Negative); Blood,Urine Small (Negative); Clarity,Urine Clear (Clear); Color,Urine Yellow (Yellow); Glucose,Urine (UA) Normal (Normal); Ketones,Urine Negative (Negative); Leukocyte Esterase,Urine Negative (Negative); Nitrite,Urine Negative (Negative); PH,Urine 6.5 pH Units (5.0-8.0); Protein,Urine 30 mg/dL (Neg-Trace); Specific Gravity,Urine > 1.030 (1.010-1.025); Urobilinogen,Urine Normal (Normal)
[2018-07-29 07:56] LABS: Bacteria,Urine None Seen per hpf (None-Few); Hyaline Casts,Urine None Seen per lpf (None-Few); Squamous Epithelial Cell,Urine Few per lpf (None-Few); WBC,Urine 0-3 per hpf (0-3)
--- NOTE | 2018-07-29 07:56 | Emergency Department Note ---
Disposition Clinical Impression: Acute electrocardiogram changes Abdominal pain Qualifiers: Abdominal location: epigastric Qualified Code(s): R10.13 - Epigastric pain Disposition: Home, Self-Care Condition: Good Time of Disposition: 08:09 General Adult HPI - General Chief complaint: ED Abdominal Pain Stated complaint: abdominal pain Time Seen by Provider: 07/29/18 06:07 Source: patient Limitations: no limitations - History of Present Illness Pain Scale: 10 - Related Data Home Medications Medication Instructions Recorded Confirmed Gabapentin [Neurontin] 800 mg PO TID 03/10/16 03/22/16 Omeprazole [PriLOSEC] 40 mg PO DAILY 03/22/16 03/22/16 Previous Rx's Medication Instructions Recorded Ondansetron ODT [Zofran ODT] 4 mg SL Q6HR PRN #30 tab.rapdis 03/15/16 Ascorbic Acid [Vitamin C] 500 mg PO BID #60 tablet 03/25/16 Docusate [Colace] 100 mg PO BID PRN #60 capsule 03/25/16 OxyCODONE/APAP 10/325 [Percocet 1 tab PO Q6H PRN #30 tablet 03/25/16 10/325 MG] Zinc 50 mg PO DAILY #14 tablet 03/29/16 Acetaminophen with Codeine 1 each PO Q4-6H PRN #6 tablet 06/07/16 [Acetaminophen-Cod #3 Tablet] Ciprofloxacin [Cipro] 500 mg PO BID #14 tablet 09/19/16 metroNIDAZOLE [Flagyl] 500 mg PO ONCE #7 tablet 09/19/16 Allergies Allergy/AdvReac Type Severity Reaction Status Date / Time tramadol AdvReac Vomiting Verified 03/10/16 07:30 Constitutional: Reports: chills. Denies: fever, weakness ENT ED: Denies: congestion Cardiovascular: Reports: chest pain, dyspnea on exertion. Denies: palpitations, edema, syncope Respiratory: Reports: dyspnea. Denies: cough, wheezes, hemoptysis, sputum production Gastrointestinal: Reports: abdominal pain, nausea, vomiting. Denies: diarrhea, constipation, hematemesis, melena, hematochezia Genitourinary: Denies: dysuria Musculoskeletal: Denies: back pain Neurological: Reports: weakness. Denies: headache, numbness, paresthesias, confusion Endocrine: Denies: fatigue Hematological/Lymphatic: Denies: easy bleeding, easy bruising Past Medical History - Past Medical History Medical history: Reports: asthma, GERD, hyperlipidemia, hypertension, kidney stones Surgical history: Reports: colectomy (secondary to diverticulitis and subsequent exploratory laparotomy for anastomotic leak with diverting ileostomy; 03/10/16 takedown of ileostomy) Psychiatric history: Reports: anxiety, depression - Social History Smoking Status: Never smoker Smokeless Tobacco Status: No Alcohol use: Reports: none Drug use: Reports: none Physical Exam - General Limitations: no limitations General appearance: alert, other (Patient is diaphoretic, shaking, states that he is in significant pain) Course Vital Signs Temperature 97.7 F 07/29/18 05:37 Pulse Rate 67 07/29/18 05:37 Respiratory Rate 20 07/29/18 05:37 Blood Pressure 222/98 07/29/18 05:37 O2 Sat by Pulse Oximetry 99 07/29/18 05:37 Temperature 97.7 F 07/29/18 05:37 Pulse Rate 88 07/29/18 06:30 Respiratory Rate 22 07/29/18 06:15 Blood Pressure 193/93 07/29/18 06:30 O2 Sat by Pulse Oximetry 100 07/29/18 06:15 Oxygen Delivery Oxygen Delivery Room Air Medical Decision Making - [facility] Narrative Medical decision making narrative: Patient was received in signout from the night team of Dr. Benito and Dr. Leslie. Please see their documentation for history of presenting illness, physical exam and initial medical decision making. At the time of signout the patient's CTA of the abdomen and pelvis was pending. CT of the abdomen and pelvis did not show any evidence of dissection. It did show a pulmonary nodule. The patient did have some EKG changes. His are nonspecific findings. Patient states that he had been having some shortness of breath as well as abdominal pain. States that the nitroglycerin did provide some minimal relief. The patient had an elevated alkaline phosphatase of 127. Remainder laboratory testing was relatively unremarkable. However due to the patient having EKG changes I feel that is most appropriate for the patient to be admitted to the hospital. EKG G showed T-wave inversions in V5 and V6. This is new from the previous EKG on 11/16/14. Lactic acid is pending at the time of admission. There is concern on the CT scan for possible inflammation to the sigmoid colon area. This concern for possible diverticulitis. The patient was started on Cipro and Flagyl. The patient will be admitted to the hospital. I called and spoke with the admitting hospitalist Dr. Duke she is except the patient to their service to patient be admitted to the hospital at this time for further evaluation and management.oud - Lab Data Result diagrams: 07/29/18 06:00 07/29/18 06:00 Lab Results 07/29/18 07/29/18 07/29/18 Range/Units 06:00 06:00 06:38 WBC 9.1 (4.3-11.1) K/mcL RBC 5.88 H (4.19-5.50) M/mcL Hgb 17.8 H (12.9-16.9) g/dL Hct 53.9 H (37.5-50.1) % MCV 91.7 (83.0-100.0) fL MCH 30.3 (28.0-33.3) pg MCHC 33.0 (31.6-35.5) g/dL RDW 13.9 (11.5-14.5) % Plt Count 197 (140-400) K/mcL MPV 10.6 (9.4-12.4) fL Immature Gran % 0.6 (0-4) % Seg Neutrophils % 74.5 % Lymphocytes % 15.5 % Monocytes % 8.1 % Eosinophils % 0.9 % Basophils % 0.4 % Neutrophils # 6.8 (1.6-8.9) K/mcL Lymphocytes # 1.4 (0.6-4.6) K/mcL Monocytes # 0.7 (0.0-1.3) K/mcL Eosinophils # 0.1 (0.0-0.6) K/mcL Basophils # 0.0 (0.0-0.2) K/mcL Sodium 139 (136-145) mEq/L Potassium 4.1 (3.5-5.1) mEq/L Chloride 101 (98-107) mEq/L Carbon Dioxide 27 (23-29) mEq/L BUN 16 (6-20) mg/dL Creatinine 1.30 (0.70-1.30) mg/dL Est GFR ( Amer) > 60 (> 60) Est GFR (Non-Af Amer) 57 L (> 60) BUN/Creatinine Ratio 12 (6-26) Glucose 156 H (70-105) mg/dL Calculated Osmolality 292 (280-300) Calcium 9.9 (8.6-10.3) mg/dL Total Bilirubin 0.6 (0.3-1.0) mg/dL Direct Bilirubin 0.1 (0.0-0.2) mg/dL Indirect Bilirubin 0.5 (0.0-1.2) mg/dL AST 21 (13-39) Units/L ALT 20 (7-52) Units/L Alkaline Phosphatase 127 H (34-104) Units/L Troponin I < 0.03 (< 0.04) ng/mL Serum Total Protein 7.8 (6.4-8.9) g/dL Albumin 4.5 (3.5-5.7) g/dL Globulin 3.3 (2.4-3.5) g/dL Albumin/Globulin Ratio 1.4 (1.1-2.2) Amylase 51 (29-103) Units/L Lipase 36 (11-82) Units/L Urine Color (Yellow) Urine Clarity (Clear) Urine pH (5.0-8.0) pH Units Ur Specific [place] (1.010-1.025) Urine Protein (Neg-Trace) mg/dL Urine Glucose (UA) (Normal) mg/dL Urine Ketones (Negative) mg/dL Urine Blood (Negative) Urine Nitrite (Negative) Urine Bilirubin (Negative) Urine Urobilinogen (Normal) mg/dL Ur Leukocyte Esterase (Negative) Urine Microscopic RBC (0-3) per hpf Urine Microscopic WBC (0-3) per hpf Ur Squamous Epith Cells (None-Few) per lpf Urine Bacteria (None-Few) per hpf Hyaline Casts (None-Few) per lpf Ur Culture Indicated? (NO) Blood Type O NEGATIVE Antibody Screen NEGATIVE 07/29/18 Range/Units 07:37 WBC (4.3-11.1) K/mcL RBC (4.19-5.50) M/mcL Hgb (12.9-16.9) g/dL Hct (37.5-50.1) % MCV (83.0-100.0) fL MCH (28.0-33.3) pg MCHC (31.6-35.5) g/dL RDW (11.5-14.5) % Plt Count (140-400) K/mcL MPV (9.4-12.4) fL Immature Gran % (0-4) % Seg Neutrophils % % Lymphocytes % % Monocytes % % Eosinophils % % Basophils % % Neutrophils # (1.6-8.9) K/mcL Lymphocytes # (0.6-4.6) K/mcL Monocytes # (0.0-1.3) K/mcL Eosinophils # (0.0-0.6) K/mcL Basophils # (0.0-0.2) K/mcL Sodium (136-145) mEq/L Potassium (3.5-5.1) mEq/L Chloride (98-107) mEq/L Carbon Dioxide (23-29) mEq/L BUN (6-20) mg/dL Creatinine (0.70-1.30) mg/dL Est GFR ( Amer) (> 60) Est GFR (Non-Af Amer) (> 60) BUN/Creatinine Ratio (6-26) Glucose (70-105) mg/dL Calculated Osmolality (280-300) Calcium (8.6-10.3) mg/dL Total Bilirubin (0.3-1.0) mg/dL Direct Bilirubin (0.0-0.2) mg/dL Indirect Bilirubin (0.0-1.2) mg/dL AST (13-39) Units/L ALT (7-52) Units/L Alkaline Phosphatase (34-104) Units/L Troponin I (< 0.04) ng/mL Serum Total Protein (6.4-8.9) g/dL Albumin (3.5-5.7) g/dL Globulin (2.4-3.5) g/dL Albumin/Globulin Ratio (1.1-2.2) Amylase (29-103) Units/L Lipase (11-82) Units/L Urine Color Yellow (Yellow) Urine Clarity Clear (Clear) Urine pH 6.5 (5.0-8.0) pH Units Ur Specific [place] > 1.030 H (1.010-1.025) Urine Protein 30 H (Neg-Trace) mg/dL Urine Glucose (UA) Normal (Normal) mg/dL Urine Ketones Negative (Negative) mg/dL Urine Blood Small H (Negative) Urine Nitrite Negative (Negative) Urine Bilirubin Negative (Negative) Urine Urobilinogen Normal (Normal) mg/dL Ur Leukocyte Esterase Negative (Negative) Urine Microscopic RBC 5-15 H (0-3) per hpf Urine Microscopic WBC 0-3 (0-3) per hpf Ur Squamous Epith Cells Few (None-Few) per lpf Urine Bacteria None Seen (None-Few) per hpf Hyaline Casts None Seen (None-Few) per lpf Ur Culture Indicated? NO (NO) Blood Type Antibody Screen Attestation Statement - Attestation Attestation: Resident Attestation: I examined this patient and my medical decision making was reviewed with the Resident Physician. I agree with the documented findings, disposition and treatment plan as described except to the extent set forth belo w. We independently had [id number] contact with the patient. Patient taken over at sign out from Dr. Leslie. Patient with significant abdominal surgeries including previous colostomy presenting for evaluation of abdominal pain which is left-sided and supraumbilical in nature. Patient has undergone blood work as well as CT scan imaging prior to my evaluation. Patient has EKG changes with lateral T-wave inversions. Patient is denying chest pain but has had some mild shortness of breath associated tenderness of the abdomen. CT scan was reviewed and does not show any evidence of dissection however they do see a decrease inflammation since prior scan of 2017. Patient has not had chronic abdominal pain. The fact that there is inflammation, believe it is new and likely related to diverticulitis. Antibiotics been started. Patient will undergo admission. Patient has required repeat doses of narcotics with in the emergency department. Will continue to be monitored.
[2018-07-29] MEDS ORDERED: MetroNIDAZOLE 500 MG/100 ML 500 MG/100 ML BAG IVPB ONE (08:04)
[2018-07-29] MEDS ORDERED: *HR* Promethazine 25 MG/ML VIAL IVP PRN (08:21)
[2018-07-29] MEDS ORDERED: Ondansetron 4 MG/2 ML VIAL IVP PRN (08:21)
[2018-07-29] MEDS ORDERED: Acetaminophen 325 MG TABLET PO PRN (08:21)
[2018-07-29] MEDS ORDERED: Naloxone 0.4 MG/ML INJ IVP PRN (08:21)
--- NOTE | 2018-07-29 08:21 | Emergency Department Note ---
Disposition Clinical Impression: Acute electrocardiogram changes Abdominal pain Qualifiers: Abdominal location: epigastric Qualified Code(s): R10.13 - Epigastric pain Disposition: Home, Self-Care Condition: Good Referrals: Red Tam DO [Primary Care Provider] - Forms: ED Satisfaction Letter, Work/School Release Time of Disposition: 07:24 General Adult HPI - General Chief complaint: ED Abdominal Pain Stated complaint: abdominal pain Time Seen by Provider: 07/29/18 06:07 Source: patient Limitations: no limitations Nursing Notes Reviewed: Yes Vital Signs Reviewed: Yes - History of Present Illness Pain Scale: 10 - Related Data Home Medications Medication Instructions Recorded Confirmed Gabapentin [Neurontin] 800 mg PO TID 03/10/16 03/22/16 Omeprazole [PriLOSEC] 40 mg PO DAILY 03/22/16 03/22/16 Previous Rx's Medication Instructions Recorded Ondansetron ODT [Zofran ODT] 4 mg SL Q6HR PRN #30 tab.rapdis 03/15/16 Ascorbic Acid [Vitamin C] 500 mg PO BID #60 tablet 03/25/16 Docusate [Colace] 100 mg PO BID PRN #60 capsule 03/25/16 OxyCODONE/APAP 10/325 [Percocet 1 tab PO Q6H PRN #30 tablet 03/25/16 10/325 MG] Zinc 50 mg PO DAILY #14 tablet 03/29/16 Acetaminophen with Codeine 1 each PO Q4-6H PRN #6 tablet 06/07/16 [Acetaminophen-Cod #3 Tablet] Ciprofloxacin [Cipro] 500 mg PO BID #14 tablet 09/19/16 metroNIDAZOLE [Flagyl] 500 mg PO ONCE #7 tablet 09/19/16 Allergies Allergy/AdvReac Type Severity Reaction Status Date / Time tramadol AdvReac Vomiting Verified 03/10/16 07:30 Constitutional: Reports: chills. Denies: fever, weakness ENT ED: Denies: congestion Cardiovascular: Reports: chest pain, dyspnea on exertion. Denies: palpitations, edema, syncope Respiratory: Reports: dyspnea. Denies: cough, wheezes, hemoptysis, sputum production Gastrointestinal: Reports: abdominal pain, nausea, vomiting. Denies: diarrhea, constipation, hematemesis, melena, hematochezia Genitourinary: Denies: dysuria Musculoskeletal: Denies: back pain Neurological: Reports: weakness. Denies: headache, numbness, paresthesias, confusion Endocrine: Denies: fatigue Hematological/Lymphatic: Denies: easy bleeding, easy bruising Past Medical History - Past Medical History Medical history: Reports: asthma, GERD, hyperlipidemia, hypertension, kidney stones Surgical history: Reports: colectomy (secondary to diverticulitis and subsequent exploratory laparotomy for anastomotic leak with diverting ileostomy; 03/10/16 takedown of ileostomy) Psychiatric history: Reports: anxiety, depression - Social History Smoking Status: Never smoker Smokeless Tobacco Status: No Alcohol use: Reports: none Drug use: Reports: none Physical Exam - General Limitations: no limitations General appearance: alert, other (Patient is diaphoretic, shaking, states that he is in significant pain) Course Vital Signs Temperature 97.7 F 07/29/18 05:37 Pulse Rate 67 07/29/18 05:37 Respiratory Rate 20 07/29/18 05:37 Blood Pressure 222/98 07/29/18 05:37 O2 Sat by Pulse Oximetry 99 07/29/18 05:37 Temperature 97.7 F 07/29/18 05:37 Pulse Rate 69 07/29/18 08:05 Respiratory Rate 18 07/29/18 08:05 Blood Pressure 163/87 07/29/18 08:05 O2 Sat by Pulse Oximetry 96 07/29/18 08:05 Oxygen Delivery Oxygen Delivery Room Air Medical Decision Making - Lab Data Lab results reviewed: Yes I reviewed the patient's lab results. Result diagrams: 07/29/18 06:00 07/29/18 06:00 Lab Results 07/29/18 07/29/18 07/29/18 Range/Units 06:00 06:00 06:38 WBC 9.1 (4.3-11.1) K/mcL RBC 5.88 H (4.19-5.50) M/mcL Hgb 17.8 H (12.9-16.9) g/dL Hct 53.9 H (37.5-50.1) % MCV 91.7 (83.0-100.0) fL MCH 30.3 (28.0-33.3) pg MCHC 33.0 (31.6-35.5) g/dL RDW 13.9 (11.5-14.5) % Plt Count 197 (140-400) K/mcL MPV 10.6 (9.4-12.4) fL Immature Gran % 0.6 (0-4) % Seg Neutrophils % 74.5 % Lymphocytes % 15.5 % Monocytes % 8.1 % Eosinophils % 0.9 % Basophils % 0.4 % Neutrophils # 6.8 (1.6-8.9) K/mcL Lymphocytes # 1.4 (0.6-4.6) K/mcL Monocytes # 0.7 (0.0-1.3) K/mcL Eosinophils # 0.1 (0.0-0.6) K/mcL Basophils # 0.0 (0.0-0.2) K/mcL Sodium 139 (136-145) mEq/L Potassium 4.1 (3.5-5.1) mEq/L Chloride 101 (98-107) mEq/L Carbon Dioxide 27 (23-29) mEq/L BUN 16 (6-20) mg/dL Creatinine 1.30 (0.70-1.30) mg/dL Est GFR ( Amer) > 60 (> 60) Est GFR (Non-Af Amer) 57 L (> 60) BUN/Creatinine Ratio 12 (6-26) Glucose 156 H (70-105) mg/dL Calculated Osmolality 292 (280-300) Calcium 9.9 (8.6-10.3) mg/dL Total Bilirubin 0.6 (0.3-1.0) mg/dL Direct Bilirubin 0.1 (0.0-0.2) mg/dL Indirect Bilirubin 0.5 (0.0-1.2) mg/dL AST 21 (13-39) Units/L ALT 20 (7-52) Units/L Alkaline Phosphatase 127 H (34-104) Units/L Troponin I < 0.03 (< 0.04) ng/mL Serum Total Protein 7.8 (6.4-8.9) g/dL Albumin 4.5 (3.5-5.7) g/dL Globulin 3.3 (2.4-3.5) g/dL Albumin/Globulin Ratio 1.4 (1.1-2.2) Amylase 51 (29-103) Units/L Lipase 36 (11-82) Units/L Urine Color (Yellow) Urine Clarity (Clear) Urine pH (5.0-8.0) pH Units Ur Specific [place] (1.010-1.025) Urine Protein (Neg-Trace) mg/dL Urine Glucose (UA) (Normal) mg/dL Urine Ketones (Negative) mg/dL Urine Blood (Negative) Urine Nitrite (Negative) Urine Bilirubin (Negative) Urine Urobilinogen (Normal) mg/dL Ur Leukocyte Esterase (Negative) Urine Microscopic RBC (0-3) per hpf Urine Microscopic WBC (0-3) per hpf Ur Squamous Epith Cells (None-Few) per lpf Urine Bacteria (None-Few) per hpf Hyaline Casts (None-Few) per lpf Ur Culture Indicated? (NO) Blood Type O NEGATIVE Antibody Screen NEGATIVE 07/29/18 Range/Units 07:37 WBC (4.3-11.1) K/mcL RBC (4.19-5.50) M/mcL Hgb (12.9-16.9) g/dL Hct (37.5-50.1) % MCV (83.0-100.0) fL MCH (28.0-33.3) pg MCHC (31.6-35.5) g/dL RDW (11.5-14.5) % Plt Count (140-400) K/mcL MPV (9.4-12.4) fL Immature Gran % (0-4) % Seg Neutrophils % % Lymphocytes % % Monocytes % % Eosinophils % % Basophils % % Neutrophils # (1.6-8.9) K/mcL Lymphocytes # (0.6-4.6) K/mcL Monocytes # (0.0-1.3) K/mcL Eosinophils # (0.0-0.6) K/mcL Basophils # (0.0-0.2) K/mcL Sodium (136-145) mEq/L Potassium (3.5-5.1) mEq/L Chloride (98-107) mEq/L Carbon Dioxide (23-29) mEq/L BUN (6-20) mg/dL Creatinine (0.70-1.30) mg/dL Est GFR ( Amer) (> 60) Est GFR (Non-Af Amer) (> 60) BUN/Creatinine Ratio (6-26) Glucose (70-105) mg/dL Calculated Osmolality (280-300) Calcium (8.6-10.3) mg/dL Total Bilirubin (0.3-1.0) mg/dL Direct Bilirubin (0.0-0.2) mg/dL Indirect Bilirubin (0.0-1.2) mg/dL AST (13-39) Units/L ALT (7-52) Units/L Alkaline Phosphatase (34-104) Units/L Troponin I (< 0.04) ng/mL Serum Total Protein (6.4-8.9) g/dL Albumin (3.5-5.7) g/dL Globulin (2.4-3.5) g/dL Albumin/Globulin Ratio (1.1-2.2) Amylase (29-103) Units/L Lipase (11-82) Units/L Urine Color Yellow (Yellow) Urine Clarity Clear (Clear) Urine pH 6.5 (5.0-8.0) pH Units Ur Specific [place] > 1.030 H (1.010-1.025) Urine Protein 30 H (Neg-Trace) mg/dL Urine Glucose (UA) Normal (Normal) mg/dL Urine Ketones Negative (Negative) mg/dL Urine Blood Small H (Negative) Urine Nitrite Negative (Negative) Urine Bilirubin Negative (Negative) Urine Urobilinogen Normal (Normal) mg/dL Ur Leukocyte Esterase Negative (Negative) Urine Microscopic RBC 5-15 H (0-3) per hpf Urine Microscopic WBC 0-3 (0-3) per hpf Ur Squamous Epith Cells Few (None-Few) per lpf Urine Bacteria None Seen (None-Few) per hpf Hyaline Casts None Seen (None-Few) per lpf Ur Culture Indicated? NO (NO) Blood Type Antibody Screen - EKG Data EKG #1 EKG attestation: Yes I reviewed and interpreted this EKG. EKG results narrative: EKG shows a normal sinus rhythm with ventricular rate of 62. Lateral ST segment depressions and T-wave inversion. No ST segment elevation. Attestation Statement - Attestation Attestation: I, Tunde Leslie MD, personally evaluated this patient and discussed their management with the resident physician. I reviewed the resident's note and agree with the documented findings, medical decision making, and plan of care. I reviewed the residents documentation and agree with the residents assessment and plan of care. I have personally had face to face time with the patient. I personally supervised and was present for the guallpa/critical portions of the following procedures completed by the resident: EKG interpretation. Patient is a 57-year-old male who presents to the emergency department with a complaint of severe mid abdominal pain which started about 9 PM this evening and has gotten progressively worse throughout the night. There has been some nausea and vomiting. No diarrhea. Patient had a normal bowel movement about 3 AM this morning. He has been passing gas. He has a prior history of multiple abdominal surgeries. No fever. No urinary symptoms. No GI bleed symptoms. He denies any chest pain. He does have some shortness of breath. He also has been diaphoretic from the pain. On examination patient is a well-developed obese male in no acute distress but appears to be in moderate to severe discomfort. He is alert and oriented 3. There is no cyanosis or diaphoresis. Breath sounds are clear and equal bilaterally. Heart regular rate and rhythm. Abdomen is mildly distended. There is moderate diffuse tenderness to palpation especially in the left lower abdomen. Bowel sounds are decreased. Labs reviewed. EKG shows a normal sinus rhythm with ventricular rate of 62. Lateral ST segment depressions and T-wave inversion. No ST segment elevation. CT of the abdomen and pelvis is pending. At morning shift change patient is signed out to the oncoming dayshift team, Dr. Mcwilliams and Dr. Godoy.
--- NOTE | 2018-07-29 08:21 | Internal Med History&Physical ---
Date of Encounter: 07/29/18 Internal Medicine - H&P: HPI History of present illness: Mr. Presley is a 57 year old male Patient is 49 years old male with past medical history of hypertension, bowel resection after obstruction with colostomy and colectomy in 2016 who is presenting with generalized abdominal pain that is progressively worsening over the last few hours. The patient describes the pain as dull aching pain and mostly in the mid epigastric area with some radiation to the chest. The patient stated that he also has several episode of vomiting. The patient also complaining of chest pain associated with significant shortness of breath which is worse and was admitted exertion, associated with diaphoresis. The patient was evaluated by the ER staff and CTA of the chest and abdomen revealed no aortic dissection, 3 mm right pulmonary nodules and mild prominence of the right hilar node was noted. There is an inflammatory stranding to the left of the sigmoid colon A suggestive of colitis and was started on empiric antibiotic with the ciprofoxacin and metronidazole by the ER staff. Past Med Surg Social Fam HX - Past Medical History Medical history: asthma, GERD, hyperlipidemia, hypertension, kidney stones Additional medical history: diverticulitis Psychiatric history: anxiety, depression - Past Surgical History Surgical History: colectomy (secondary to diverticulitis and subsequent exploratory laparotomy for anastomotic leak with diverting ileostomy; 03/10/16 takedown of ileostomy) Additional surgical history: 2006 for diverticulitis, Colonoscopy. emergency ileostomy. - Social History Smoking Status: Never smoker Smokeless Tobacco Status: No Alcohol use: none Drug use: none - Family History Father Hx Family Cardiac Disorders: Yes Mother Hx Family Cancer: Yes Internal Medicine - H&P: Meds Gabapentin [Neurontin] 800 mg PO TID 03/10/16 [History] Ascorbic Acid [Vitamin C] 500 mg PO BID #60 tablet 03/25/16 [Rx] Lisinopril [Zestril] 10 mg PO DAILY 07/29/18 [History] raNITIdine HCl [Ranitidine HCl] 75 mg PO DAILY 07/29/18 [History] Allergy/AdvReac Type Severity Reaction Status Date / Time tramadol AdvReac Vomiting Verified 03/10/16 07:30 All Systems PM: A 10-system review of systems was performed and is negative for pertinent findings except as documented above in the HPI. - Constitutional Vitals: Temp Pulse Resp BP Pulse Ox 97.7 F 69 18 163/87 96 07/29/18 05:37 07/29/18 08:05 07/29/18 08:05 07/29/18 08:05 07/29/18 08:05 General appearance: Present: A&O X 3 - Head Head exam: Present: atraumatic, normocephalic - Neck Neck exam general surgery: Present: supple, trachea midline. Absent: lymphadenopathy - Respiratory Respiratory exam: Present: CTAB. Absent: accessory muscle use, rales, rhonchi, wheezes - Cardiovascular Cardiovascular exam: Present: RRR, +S1, +S2. Absent: diastolic murmur, gallop, rubs, systolic murmur - GI/Abdominal GI/Abdominal exam: Present: normal bowel sounds, soft, no peritoneal signs. Absent: distended, tenderness - Extremities Exam Extremities exam: Present: warm, radial pulses palpable and symmetrical. Absen t: calf tenderness, cyanotic, pedal edema - Neurological Exam Neurological exam: Present: CN II-XII intact, oriented X3, no focal deficits. Absent: pronater drift, facial droop, speech deficit Internal Med - H&P Results - Labs CBC & Chem 7: 07/29/18 06:00 07/29/18 06:00 Labs: Short CBC 07/29/18 Range/Units 06:00 WBC 9.1 (4.3-11.1) K/mcL Hgb 17.8 H (12.9-16.9) g/dL Hct 53.9 H (37.5-50.1) % Plt Count 197 (140-400) K/mcL Neutrophils # 6.8 (1.6-8.9) K/mcL BMP 07/29/18 06:00 Sodium 139 Potassium 4.1 Chloride 101 Carbon Dioxide 27 BUN 16 Creatinine 1.30 Glucose 156 H Calcium 9.9 Cardiac Enzymes 07/29/18 Range/Units 06:00 Troponin I < 0.03 (< 0.04) ng/mL Liver Function 07/29/18 Range/Units 06:00 Total Bilirubin 0.6 (0.3-1.0) mg/dL Direct Bilirubin 0.1 (0.0-0.2) mg/dL AST 21 (13-39) Units/L ALT 20 (7-52) Units/L Alkaline Phosphatase 127 H (34-104) Units/L Albumin 4.5 (3.5-5.7) g/dL Urine 07/29/18 Range/Units 07:37 Urine Color Yellow (Yellow) Urine Clarity Clear (Clear) Urine pH 6.5 (5.0-8.0) pH Units Ur Specific [place] > 1.030 H (1.010-1.025) Urine Protein 30 H (Neg-Trace) mg/dL Urine Glucose (UA) Normal (Normal) mg/dL - Impressions ITS Impressions CT Dissection 07/29/18 06:26 IMPRESSION: No gross findings of aortic dissection. Cholelithiasis. Nonobstructing nephrolithiasis. 3 mm right pulmonary nodules and mild prominence of right hilar lymph node, which may be followed based upon clinical risk factors. RECOMMENDATIONS: Fleischner Society guidelines for follow-up and management of incidentally detected pulmonary nodules: Single Solid Nodule: Nodule size less than 6 mm In a low-risk patient, no routine follow-up. In a high-risk patient, optional CT at 12 months. Nodule size equals 6-8 mm In a low-risk patient, CT at 6-12 months, then consider CT at 18-24 months. In a high-risk patient, CT at 6-12 months, then CT at 18-24 months. Nodule size greater than 8 mm In a low-risk patient, consider CT at 3 months, PET/CT, or tissue sampling. In a high-risk patient, consider CT at 3 months, PET/CT, or tissue sampling. Multiple Solid Nodules: Nodule size less than 6 mm In a low-risk patient, no routine follow-up. In a high-risk patient, optional CT at 12 months. Nodule size equals 6-8 mm In a low-risk patient, CT at 3-6 months, then consider CT at 18-24 months. In a high-risk patient, CT at 3-6 months, then CT at 18-24 months. Nodule size greater than 8 mm In a low-risk patient, CT at 3-6 months, then consider CT at 18-24 months. In a high-risk patient, CT at 3-6 months, then CT at 18-24 months. - Low risk patients include individuals with minimal or absent history of smoking and other known risk factors. - High risk patients include individuals with a history or smoking or known risk factors. Radiology 2017 http://pubs.rsna.org/doi/full/10.1148/radiol.5484492744 D/ / Kyler Black MD / Kyelr Black MD Interpreting Provider: Kyler Black MD - Assessment and Plan (1) Colitis Current Visit: Yes Status: Acute Assessment and plan: There is an inflammatory stranding to the left of the sigmoid colon suggestive of colitis and was started on empiric antibiotic with the ciprofoxacin and metronidazole, we will keep the patient MB oh continue antibiotic coverage with ciprofloxacin and metronidazole, advance diet as tolerated (2) Acute electrocardiogram changes Current Visit: Yes Status: Acute Assessment and plan: EKG changes was noted , however patient now chest pain-free troponin first set was within normal limit. We will trend cardiac enzymes and repeat serious of EKG (3) Hypertension Current Visit: No Status: Chronic Assessment and plan: We will hold blood pressure medication for now and start the patient on when necessary antihypertensive for systolic blood pressure above 180 and diastolic blood pressure 100 Qualifiers: Hypertension type: essential hypertension Qualified Code(s): I10 - Essential (primary) hypertension (4) Hypercholesteremia Current Visit: No Status: Chronic (5) DVT prophylaxis Current Visit: No Status: Acute (6) Lung nodule Current Visit: Yes Status: Acute - Time Spent With Patient Total time spent is greater than 50% in coordination of care (as documented) at patient's floor/unit and/or counseling patient:
[2018-07-29] MEDS: *HR* Morphine 2 MG/ML SYRINGE IVP PRN ×2 (11:47→16:07)
[2018-07-29] MEDS: 0.9 % Sodium Chloride 1,000 ML IVC SCH ×2 (11:57→20:16)
--- NOTE | 2018-07-29 13:33 | Electrocardiograph Report ---
[place] [id number] Test Date: 2018-07-29 Pat Name: Ruben Presley Department: EXAM3 Room: 2NE25 Gender: M Mat Maker: : [id number] Requested By: Landy Jacome Order Number: [id number] Reading MD: Sinan Jason Measurements Intervals [place] Rate: 62 P: 64 FL: 128 QRS: -18 QRSD: 111 T: -60 QT: 451 QTc: 458 Interpretive Statements Sinus rhythm Borderline left axis deviation Repol abnrm suggests ischemia Electronically Signed On 07-29-2018 13:31:54 EDT by Sinan Jason
[2018-07-29] MEDS: Pantoprazole 40 MG VIAL IVP SCH (17:21)
[2018-07-29] MEDS: *HR* HYDROcodone/Acet 10/325 mg TABLET PO PRN (20:15)
[2018-07-30] MEDS: MetroNIDAZOLE 500 MG/100 ML 500 MG/100 ML BAG IVPB SCH ×3 (00:16→15:21)
[2018-07-30] MEDS: *HR* Morphine 2 MG/ML SYRINGE IVP PRN ×2 (00:17→14:15)
[2018-07-30] MEDS: *HR* HYDROcodone/Acet 10/325 mg TABLET PO PRN ×4 (02:04→21:22)
[2018-07-30 02:16] LABS: Basophils % 0.3 %; Eosinophils # 0.1 K/mcL (0.0-0.6); Hematocrit 47.6 % (37.5-50.1); Immature Granulocytes % 0.3 % (0-4); Lymphocytes # 1.3 K/mcL (0.6-4.6); Lymphocytes % 14.4 %; Mean Corpuscular HGB Conc 32.8 g/dL (31.6-35.5); Mean Corpuscular Hemoglobin 30.1 pg (28.0-33.3); Mean Corpuscular Volume 91.9 fL (83.0-100.0); Mean Platelet Volume 10.4 fL (9.4-12.4); Monocytes # 0.9 K/mcL (0.0-1.3); Monocytes % 10.3 %; Neutrophils # 6.6 K/mcL (1.6-8.9); Platelet Count 176 K/mcL (140-400); Red Blood Count 5.18 M/mcL (4.19-5.50); Red Cell Distribution Width 14.1 % (11.5-14.5); Segmented Neutrophils % 73.7 %; White Blood Count 8.9 K/mcL (4.3-11.1)
[2018-07-30 02:17] LABS: Hemoglobin 15.6 g/dL (12.9-16.9)
[2018-07-30 02:25] LABS: INR 1.1; Prothrombin Time 12.1 Seconds (9.4-12.1)
[2018-07-30 02:27] LABS: Activated Partial Thrombo Time 28.6 Seconds (26.0-36.0)
[2018-07-30 02:39] LABS: Alanine Aminotransferase 15 Units/L (7-52); Albumin 3.7 g/dL (3.5-5.7); Albumin/Globulin Ratio 1.4 (1.1-2.2); Alkaline Phosphatase 94 Units/L (34-104); Aspartate Amino Transferase 16 Units/L (13-39); BUN/Creatinine Ratio 10 (6-26); Bilirubin,Total 0.8 mg/dL (0.3-1.0); Blood Urea Nitrogen 11 mg/dL (6-20); Calcium 8.4 mg/dL (8.6-10.3); Carbon Dioxide 26 mEq/L (23-29); Chloride 106 mEq/L (98-107); Chol/HDL Ratio 5.3 (0-4.9); Cholesterol 147 mg/dL (< 200); Globulin 2.6 g/dL (2.4-3.5); Glucose 103 mg/dL (70-105); HDL Cholesterol 28 mg/dL (40-59); LDL Cholesterol,Calculated 93 mg/dL (0-99); Magnesium 1.8 mg/dL (1.6-2.6); Osmolality,Calculated 284 (280-300); Potassium 3.9 mEq/L (3.5-5.1); Sodium 137 mEq/L (136-145); Total Protein 6.3 g/dL (6.4-8.9); Triglycerides 132 mg/dL (< 150); eGFR For African Americans > 60 (> 60); eGFR For Non-African Americans > 60 (> 60)
[2018-07-30] MEDS: Pantoprazole 40 MG VIAL IVP SCH ×2 (05:33→17:25)
[2018-07-30] MEDS: *HR* Heparin 5,000 UNIT/ML VIAL SQ SCH ×3 (05:33→21:15)
--- NOTE | 2018-07-30 11:07 | Internal Med Progress Note ---
Hospitalist Progress Note - Encounter Date of Encounter: 07/30/18 Time of Encounter: 08:45 - Subjective Interval History: H&P reviewed. Further history shows that pt has family history of CAD but both his mother and father were in their 70s. 2 main complaints that pt endorses today are lower abdominal pain as well as progressively worsening dyspnea on e xertion. No fever/chills, nausea/vomiting, or diarrhea. Pt does report significant improvement in his abdominal pain after the abx however. - Exam Vitals: Temp Pulse Resp BP Pulse Ox 98.4 F 68 16 134/91 93 07/30/18 06:51 07/30/18 06:51 07/30/18 03:52 07/30/18 06:51 07/30/18 06:51 Exam: General: Alert and oriented, not in acute distress. Cardiovascular:Normal S1 & S2, No JVD. Pulse regular. Lungs: clear to auscultation, no wheezes/rales Abdomen:Soft, mild lower abdominal tenderness without rebound/guarding/rigidity. Multiple abdominal scars noted Extremities:No deformity or swelling Neurological:Normal cognition and motor skills. Non-focal - Assessment and Plan (1) Colitis Current Visit: Yes Status: Acute Assessment and Plan: presented with lower abdominal pain with CT scan showing inflammatory stranding to the left of the sigmoid colon However, it also does mention that the findings were present in 2017 and appears to be less when compared to that exam. Doubt whether the findings are responsible for pt's symptoms no fever or leukocytosis. No diarrhea nevertheless, he reports significant improvement in his symptoms after the initiation of tx in the ED, would continue abx for now and complete 7 days follow up with surgery as outpatient (2) Dyspnea on exertion Current Visit: Yes Status: Acute Assessment and Plan: progressively worsening over the last few weeks ACS ruled out with serial troponins EKG does show ST depression and T-wave inversion in V5 and 6 as well as flattening of T wave in I, aVL which are new since 10/2014 lipid panel is unremarkable check A1c echocardiogram stress test in AM (3) Lung nodule Current Visit: Yes Status: Chronic Assessment and Plan: Incidental finding of 3 mm right lower lobe and upper lobe pulmonary nodules no history of smoking or occupational exposure no routine follow up recommended per Fleischner Society guideline, follow up with PCP (4) Hypertension Current Visit: No Status: Chronic Assessment and Plan: resume home meds (5) DVT prophylaxis Current Visit: No Status: Acute Assessment and Plan: SQ hep - Time Spent with Patient Total time spent is greater than 50% in coordination of care (as documented) at patient's floor/unit and/or counseling patient: 25 - 35 minutes Plan of Care Discussed with: patient Internal Medicine: Result - Labs CBC & Chem 7: 07/30/18 01:56 07/30/18 01:56 Labs: Short CBC 07/30/18 Range/Units 01:56 WBC 8.9 (4.3-11.1) K/mcL Hgb 15.6 D (12.9-16.9) g/dL Hct 47.6 (37.5-50.1) % Plt Count 176 (140-400) K/mcL Neutrophils # 6.6 (1.6-8.9) K/mcL BMP 07/30/18 01:56 Sodium 137 Potassium 3.9 Chloride 106 Carbon Dioxide 26 BUN 11 Creatinine 1.12 Glucose 103 Calcium 8.4 L Cardiac Enzymes 07/29/18 07/29/18 Range/Units 14:25 21:25 Troponin I < 0.03 < 0.03 (< 0.04) ng/mL Liver Function 07/30/18 Range/Units 01:56 Total Bilirubin 0.8 (0.3-1.0) mg/dL AST 16 (13-39) Units/L ALT 15 (7-52) Units/L Alkaline Phosphatase 94 (34-104) Units/L Albumin 3.7 (3.5-5.7) g/dL - ABG Interpretation ABG results: PT/INR, D-dimer PT 12.1 Seconds (9.4-12.1) 07/30/18 01:56 Consult Discharge Plan - Plan Referrals: Red Tam DO [Primary Care Provider] - (4) Hypertension Qualifiers: Hypertension type: essential hypertension Qualified Code(s): I10 - Essential (primary) hypertension
[2018-07-30] MEDS: Gabapentin 400 MG CAPSULE PO SCH ×2 (15:20→21:15)
[2018-07-31] MEDS: MetroNIDAZOLE 500 MG/100 ML 500 MG/100 ML BAG IVPB SCH ×3 (00:26→17:12)
[2018-07-31 05:11] LABS: Hemoglobin 16.5 g/dL (12.9-16.9); Mean Corpuscular Hemoglobin 30.2 pg (28.0-33.3); Mean Corpuscular Volume 91.6 fL (83.0-100.0); Mean Platelet Volume 10.4 fL (9.4-12.4); Platelet Count 159 K/mcL (140-400); Red Blood Count 5.46 M/mcL (4.19-5.50); Red Cell Distribution Width 14.2 % (11.5-14.5); White Blood Count 6.8 K/mcL (4.3-11.1)
[2018-07-31] MEDS: *HR* HYDROcodone/Acet 10/325 mg TABLET PO PRN ×3 (05:11→18:49)
[2018-07-31] MEDS: Pantoprazole 40 MG VIAL IVP SCH ×2 (05:12→18:48)
[2018-07-31] MEDS: *HR* Heparin 5,000 UNIT/ML VIAL SQ SCH ×3 (05:12→21:30)
[2018-07-31 05:30] LABS: BUN/Creatinine Ratio 8 (6-26); Blood Urea Nitrogen 10 mg/dL (6-20); Calcium 9.2 mg/dL (8.6-10.3); Carbon Dioxide 27 mEq/L (23-29); Chloride 103 mEq/L (98-107); Glucose 105 mg/dL (70-105); Osmolality,Calculated 287 (280-300); Potassium 4.1 mEq/L (3.5-5.1); Sodium 139 mEq/L (136-145); eGFR For African Americans > 60 (> 60); eGFR For Non-African Americans > 60 (> 60)
[2018-07-31] MEDS ORDERED: Regadenoson 0.4 MG/5 ML SYRINGE IVP ONE (06:32)
[2018-07-31 06:54] LABS: Estimated Average Glucose 131 mg/dl; Hemoglobin A1C 6.2 %
[2018-07-31] MEDS: Gabapentin 400 MG CAPSULE PO SCH ×3 (10:03→21:30)
--- NOTE | 2018-07-31 10:14 | Internal Med Progress Note ---
Hospitalist Progress Note - Encounter Date of Encounter: 07/31/18 Time of Encounter: 08:30 - Subjective Interval History: Reports resolution of lower abdominal pain, no fever/chills or diarrhea. No chest pain, palpitation - Exam Vitals: Temp Pulse Resp BP Pulse Ox 98.4 F 74 16 147/96 93 07/31/18 04:26 07/31/18 04:26 07/31/18 04:26 07/31/18 04:26 07/31/18 04:26 Exam: General: Alert and oriented, not in acute distress. Cardiovascular:Normal S1 & S2, No JVD. Pulse regular. Lungs: clear to auscultation, no wheezes/rales Abdomen:Soft, min lower abdominal tenderness without rebound/guarding/rigidity. Multiple abdominal scars noted Extremities:No deformity or swelling Neurological:Normal cognition and motor skills. Non-focal - Assessment and Plan (1) Colitis Current Visit: Yes Status: Acute Assessment and Plan: presented with lower abdominal pain with CT scan showing inflammatory stranding to the left of the sigmoid colon However, it also does mention that the findings were present in 2017 and appears to be less when compared to that exam. Doubt whether the findings are responsible for pt's symptoms no fever or leukocytosis. No diarrhea nevertheless, he reports significant improvement in his symptoms after the initiation of tx in the ED, would continue abx for now and complete 7 days follow up with surgery as outpatient (2) Dyspnea on exertion Current Visit: Yes Status: Acute Assessment and Plan: progressively worsening over the last few weeks ACS ruled out with serial troponins EKG does show ST depression and T-wave inversion in V5 and 6 as well as flattening of T wave in I, aVL which are new since 10/2014 A1c, lipid panel is unremarkable echocardiogram showed preserved EF, bicuspid AV without for 2-day stress test (3) Lung nodule Current Visit: Yes Status: Chronic Assessment and Plan: Incidental finding of 3 mm right lower lobe and upper lobe pulmonary nodules no history of smoking or occupational exposure no routine follow up recommended per Fleischner Society guideline, follow up with PCP (4) Hypertension Current Visit: No Status: Chronic Assessment and Plan: resume home meds (5) DVT prophylaxis Current Visit: No Status: Acute Assessment and Plan: SQ hep - Time Spent with Patient Total time spent is greater than 50% in coordination of care (as documented) at patient's floor/unit and/or counseling patient: less than 15 minutes Plan of Care Discussed with: patient Internal Medicine: Result - Labs CBC & Chem 7: 07/31/18 05:00 07/31/18 05:00 Labs: Short CBC 07/31/18 Range/Units 05:00 WBC 6.8 (4.3-11.1) K/mcL Hgb 16.5 (12.9-16.9) g/dL Hct 50.0 (37.5-50.1) % Plt Count 159 (140-400) K/mcL BMP 07/31/18 05:00 Sodium 139 Potassium 4.1 Chloride 103 Carbon Dioxide 27 BUN 10 Creatinine 1.21 Glucose 105 Calcium 9.2 - ABG Interpretation ABG results: PT/INR, D-dimer PT 12.1 Seconds (9.4-12.1) 07/30/18 01:56 - Impressions Impressions Echocardiogram 07/30/18 11:09 Impressions: LVEF 60-65%. Mild concentric left ventricular hypertrophy. Mild left ventricular diastolic function. Normal right ventricular structure and function. Bicuspid aortic valve. No aortic stenosis. Mild tricuspid regurgitation. No evidence of pulmonary hypertension. Left Ventricular Wall Motion: Rest Echo Findings All wall segments showed normal motion. Findings: Study Quality * Technically adequate exam. ECG Findings * Normal sinus rhythm. Left Ventricle * LVEF 60-65%. * Mild concentric left ventricular hypertrophy. * Normal LV chamber size. * Mild left ventricular diastolic function. Right Ventricle * Normal right ventricular structure and function. Left Atrium * Normal left atrial size. Right Atrium * Normal right atrial size. Aortic Valve * Bicuspid aortic valve. No aortic stenosis. * No aortic regurgitation. * Mitral Valve * Normal mitral valve structure. * No mitral regurgitation. * No mitral stenosis. Tricuspid Valve * Mild tricuspid regurgitation. * No tricuspid stenosis. * No evidence of pulmonary hypertension. Pulmonic Valve * No pulmonic regurgitation. Aorta * Normally sized aortic root. Pericardium * The pericardium appears normal. IVC * Normal IVC dimensions and inspiratory collapse. Pulmonary Artery * Normal visualized portions of the main pulmonary artery. Consult Discharge Plan - Plan Referrals: Red Tam DO [Primary Care Provider] - (4) Hypertension Qualifiers: Hypertension type: essential hypertension Qualified Code(s): I10 - Essential (primary) hypertension
[2018-07-31] MEDS ORDERED: *HR* OxyCODONE/APAP 10/325 TABLET PO PRN (12:08)
[2018-07-31] MEDS ORDERED: Famotidine 20 MG TABLET PO PRN (12:08)
[2018-07-31] MEDS: Aspirin Enteric Coated 81 MG Tablet PO SCH (14:45)
[2018-07-31] MEDS: amLODIPine 5 MG TABLET PO SCH (14:45)
--- NOTE | 2018-07-31 20:49 | Electrocardiograph Report ---
[place] [id number] Test Date: 2018-07-29 Pat Name: Ruben Presley Department: 111 Room: 2N5 Gender: M [employer]ician: : 1960 Requested By: Landy Jacome Order Number: [id number] Reading MD: Sivakumar Vinson Measurements Intervals [place] Rate: 79 P: 55 NC: 155 QRS: -11 QRSD: 97 T: 0 QT: 319 QTc: 354 Interpretive Statements SINUS RHYTHM NONSPECIFIC ST & T-WAVE ABNORMALITY Electronically Signed On 07-31-2018 20:47:35 EDT by Sivakumar Vinson
[2018-08-01] MEDS: MetroNIDAZOLE 500 MG/100 ML 500 MG/100 ML BAG IVPB SCH ×2 (01:06→09:16)
[2018-08-01] MEDS: *HR* HYDROcodone/Acet 10/325 mg TABLET PO PRN (01:07)
[2018-08-01] MEDS: Pantoprazole 40 MG VIAL IVP SCH (05:26)
[2018-08-01] MEDS: *HR* Heparin 5,000 UNIT/ML VIAL SQ SCH (05:38)
[2018-08-01] MEDS ORDERED: Lisinopril 20 MG TABLET PO SCH (09:00)
[2018-08-01] MEDS: Aspirin Enteric Coated 81 MG Tablet PO SCH (09:15)
[2018-08-01] MEDS: Gabapentin 400 MG CAPSULE PO SCH (09:15)
[2018-08-01] MEDS: amLODIPine 5 MG TABLET PO SCH (09:16)
--- NOTE | 2018-08-01 09:52 | Discharge Summary ---
- NOTES TO OUTPATIENT PROVIDER Notes to Outpatient Provider: Follow-up outpatient with PCP Orders not resulted at time of discharge: Pending orders 07/30/18 10:07 NM fahad perf SPECT multi [NM] Routine Date of Encounter: 08/01/18 Time of Encounter: 07:15 - Discharge Diagnosis (1) Colitis Priority: Primary Status: Acute (2) Dyspnea on exertion Priority: Secondary Status: Acute (3) Lung nodule Priority: Secondary Status: Chronic (4) Hypertension Priority: Secondary Status: Chronic Qualifiers: Hypertension type: essential hypertension Qualified Code(s): I10 - Essential (primary) hypertension (5) DVT prophylaxis Priority: Secondary Status: Acute Hospital course: Mr. Presley is a 57 year old male with history of HTN and bowel surgery who was admitted for mild colitis and dyspnea on exertion in the setting of new EKG changes. Clinically improved with IV Cipro/Flagyl. Given his progressive ALVAREZ with EKG showing ST depression and T-wave inversion in V5 and 6 as well as flattening of T wave in I, aVL, he underwent Echocardiogram and stress test after serial troponins returned -ve. Echocardiogram showed preserved EF with bicuspid aortic valve without and stress test was -ve ischemia or infarct. Pt will be discharged home on a total of 5 days of abx and PCP follow up. Also note, he had incidental finding of 3 mm right pulmonary nodules but based on Fleischner guideline in low-risk pt, no routine follow up was recommended but he can also follow up with PCP for interval imaging if desired. Discharge discussed with: patient, family, nurse - Time Spent with Patient Total time spent providing and/or coordinating discharge services: 31 mins - Discharge Medications Prescriptions: New Ciprofloxacin [Cipro] 500 mg PO BID 2 Days #4 tablet metroNIDAZOLE [Flagyl] 500 mg PO TID 2 Days #6 tablet Continued Gabapentin [Neurontin] 800 mg PO TID Amlodipine Besylate 2.5 mg PO DAILY Aspirin [[place] Aspirin EC] 81 mg PO QAM Atorvastatin [Lipitor] 40 mg PO QPM Lisinopril [Zestril] 40 mg PO DAILY Meloxicam 15 mg PO HS PRN PRN Reason: Pain NALOXONE 4 MG Nasal [place] [Narcan] 1 spray NS AD PRN PRN Reason: OVERDOSE OxyCODONE/APAP 10/325 [Percocet 10/325 MG] 1 tab PO TID PRN PRN Reason: Pain raNITIdine HCl [Zantac] 150 mg PO BID PRN PRN Reason: GERD Home Medications: Gabapentin [Neurontin] 800 mg PO TID 03/10/16 [History] Amlodipine Besylate 2.5 mg PO DAILY 07/31/18 [History] Aspirin [[place] Aspirin EC] 81 mg PO QAM 07/31/18 [History] Atorvastatin [Lipitor] 40 mg PO QPM 07/31/18 [History] Lisinopril [Zestril] 40 mg PO DAILY 07/31/18 [History] Meloxicam 15 mg PO HS PRN 07/31/18 [History] NALOXONE 4 MG Nasal [place] [Narcan] 1 spray NS AD PRN 07/31/18 [History] OxyCODONE/APAP 10/325 [Percocet 10/325 MG] 1 tab PO TID PRN 07/31/18 [History] raNITIdine HCl [Zantac] 150 mg PO BID PRN 07/31/18 [History] Ciprofloxacin [Cipro] 500 mg PO BID 2 Days #4 tablet 08/01/18 [Rx] metroNIDAZOLE [Flagyl] 500 mg PO TID 2 Days #6 tablet 08/01/18 [Rx] Allergies/Adverse Reactions: Allergy/AdvReac Type Severity Reaction Status Date / Time tramadol AdvReac NAUSEA, Verified 07/31/18 08:22 VOMITING, "GUTS HURT" Date of admission: 07/31/18 11:30 Primary care physician: Red Tam, DO - Constitutional Vitals: Temp Pulse Resp BP Pulse Ox 98.2 F 64 16 133/79 98 08/01/18 03:25 08/01/18 07:47 08/01/18 07:47 08/01/18 07:47 08/01/18 07:47 General appearance: Present: A&O X 3 Exam: General: Alert and oriented, not in acute distress. Cardiovascular:Normal S1 & S2, No JVD. Pulse regular. Lungs: clear to auscultation, no wheezes/rales Abdomen:Soft, nontender. Multiple abdominal scars noted Extremities:No deformity or swelling Neurological:Normal cognition and motor skills. Non-focal - Patient Status Disposition: Home, Self-Care Condition: Good Functional capacity at discharge: independent ambulation Overall status at discharge: patient is progressing back to baseline - Discharge Instructions Follow Up With: Red Tam DO [Primary Care Provider] - - Diet and Activity Activity: resume usual activities as tolerated Diet: low salt diet
[2018-08-01 19:32] VITALS: BP 133/79
== END 2018-08-01 15:28 | disposition home or self-care (01) | DRG 392 ==
LOC: 2NENU 05:36 → EMEROOARM 05:36 → SUATTDRO 08:16 → 2NENU 10:12
PROVIDERS: ADMIT Internal Medicine Nephrology; ATTEND Internal Medicine

== ENCOUNTER 2019-04-27 16:03 | Observation (INO) ==
[2019-04-27 18:29] LABS: Basophils % 0.4 %; Eosinophils # 0.1 K/mcL (0.0-0.6); Eosinophils % 1.3 %; Hematocrit 52.5 % (37.5-50.1); Hemoglobin 17.6 g/dL (12.9-16.9); Immature Granulocytes % 0.3 % (0-4); Lymphocytes # 1.3 K/mcL (0.6-4.6); Lymphocytes % 16.8 %; Mean Corpuscular HGB Conc 33.5 g/dL (31.6-35.5); Mean Corpuscular Hemoglobin 31.6 pg (28.0-33.3); Mean Corpuscular Volume 94.3 fL (83.0-100.0); Mean Platelet Volume 10.8 fL (9.4-12.4); Monocytes # 0.7 K/mcL (0.0-1.3); Monocytes % 8.9 %; Neutrophils # 5.7 K/mcL (1.6-8.9); Platelet Count 162 K/mcL (140-400); Red Blood Count 5.57 M/mcL (4.19-5.50); Red Cell Distribution Width 13.6 % (11.5-14.5); Segmented Neutrophils % 72.3 %; White Blood Count 7.9 K/mcL (4.3-11.1)
[2019-04-27] MEDS ORDERED: Ketorolac 15 MG/ML VIAL IM ONE (18:30)
[2019-04-27] MEDS ORDERED: Ondansetron ODT 4 MG TAB.RAPDIS SL ONE (18:30)
[2019-04-27] MEDS ORDERED: Ketorolac 15 MG/ML VIAL IVP ONE (18:41)
[2019-04-27 18:48] LABS: Alanine Aminotransferase 26 Units/L (7-52); Albumin 4.3 g/dL (3.5-5.7); Albumin/Globulin Ratio 1.4 (1.1-2.2); Alkaline Phosphatase 111 Units/L (34-104); Aspartate Amino Transferase 25 Units/L (13-39); BUN/Creatinine Ratio 11 (6-26); Bilirubin,Direct 0.2 mg/dL (0.0-0.2); Bilirubin,Indirect 0.5 mg/dL (0.0-1.0); Bilirubin,Total 0.7 mg/dL (0.3-1.0); Blood Urea Nitrogen 12 mg/dL (6-20); Calcium 9.1 mg/dL (8.6-10.3); Carbon Dioxide 24 mEq/L (23-29); Chloride 107 mEq/L (98-107); Globulin 3.1 g/dL (2.4-3.5); Glucose 94 mg/dL (70-105); Lipase 28 Units/L (11-82); Osmolality,Calculated 282 (280-300); Potassium 3.8 mEq/L (3.5-5.1); Sodium 136 mEq/L (136-145); Total Protein 7.4 g/dL (6.4-8.9); eGFR For African Americans > 60 (> 60); eGFR For Non-African Americans > 60 (> 60)
[2019-04-27 19:20] LABS: Bilirubin,Urine Negative (Negative); Blood,Urine Negative (Negative); Clarity,Urine Clear (Clear); Color,Urine Yellow (Yellow); Glucose,Urine (UA) Normal (Normal); Ketones,Urine Negative (Negative); Leukocyte Esterase,Urine Negative (Negative); Nitrite,Urine Negative (Negative); PH,Urine 7.5 pH Units (5.0-8.0); Protein,Urine Negative (Neg-Trace); Specific Gravity,Urine 1.018 (1.010-1.025)
[2019-04-27] MEDS ORDERED: Ondansetron 4 MG/2 ML VIAL IVP PRN (19:54)
[2019-04-27] MEDS ORDERED: Naloxone 0.4 MG/ML INJ IVP PRN (19:54)
[2019-04-27] MEDS ORDERED: Ketorolac 15 MG/ML VIAL IVP PRN (20:15)
[2019-04-27] MEDS ORDERED: Acetaminophen 325 MG TABLET PO PRN ×2 (20:16→20:58)
[2019-04-27] MEDS ORDERED: *HR* FentaNYL (PF) 100 MCG/2 ML VIAL IVP PRN (20:18)
[2019-04-27] MEDS ORDERED: *HR* HYDROcodone/Acet 5/325 mg TABLET PO PRN (20:19)
[2019-04-27] MEDS: Ringers Solution, Lactated 1,000 ML IVC SCH (21:59)
[2019-04-28] MEDS: Ringers Solution, Lactated 1,000 ML IVC SCH (05:44)
[2019-04-28 06:36] LABS: BUN/Creatinine Ratio 10 (6-26); Blood Urea Nitrogen 12 mg/dL (6-20); Calcium 8.6 mg/dL (8.6-10.3); Carbon Dioxide 29 mEq/L (23-29); Chloride 106 mEq/L (98-107); Glucose 105 mg/dL (70-105); Osmolality,Calculated 288 (280-300); Potassium 3.8 mEq/L (3.5-5.1); Sodium 139 mEq/L (136-145); eGFR For African Americans > 60 (> 60); eGFR For Non-African Americans > 60 (> 60)
[2019-04-28] MEDS ORDERED: *HR* HYDROcodone/Acet 5/325 mg TABLET PO PRN (11:04)
[2019-04-28] MEDS: lisinopriL 20 MG TABLET PO SCH (14:11)
[2019-04-29 07:48] VITALS: BP 131/78
[2019-04-29] MEDS: lisinopriL 20 MG TABLET PO SCH (08:41)
[2019-04-29] MEDS ORDERED: Aspirin Enteric Coated 81 MG Tablet PO SCH (09:00)
== END 2019-04-29 09:47 | disposition home or self-care (01) ==
LOC: 3ANU 16:03 → EMEROOARM 16:03 → SUATTDRO 20:13 → 3ANU 21:14
PROVIDERS: ADMIT Internal Medicine; ATTEND Internal Medicine

== ENCOUNTER 2020-01-19 05:36 | Inpatient (IN) ==
[2020-01-19] MEDS ORDERED: *HR* FentaNYL (PF) 100 MCG/2 ML VIAL IVP ONE ×2 (06:00→08:05)
[2020-01-19] MEDS ORDERED: Ondansetron 4 MG/2 ML VIAL IVP ONE ×2 (06:00→07:45)
[2020-01-19] MEDS ORDERED: Isovue-370 500 ML BOTTLE IVP ONE (06:00)
[2020-01-19 06:11] LABS: Basophils % 0.3 %; Eosinophils # 0.1 K/mcL (0.0-0.6); Hematocrit 52.8 % (37.5-50.1); Hemoglobin 17.5 g/dL (12.9-16.9); Immature Granulocytes % 0.3 % (0-4); Lymphocytes # 1.4 K/mcL (0.6-4.6); Lymphocytes % 15.4 %; Mean Corpuscular HGB Conc 33.1 g/dL (31.6-35.5); Mean Corpuscular Hemoglobin 32.1 pg (28.0-33.3); Mean Corpuscular Volume 96.7 fL (83.0-100.0); Mean Platelet Volume 10.3 fL (9.4-12.4); Monocytes # 0.8 K/mcL (0.0-1.3); Monocytes % 8.4 %; Neutrophils # 6.7 K/mcL (1.6-8.9); Platelet Count 189 K/mcL (140-400); Red Blood Count 5.46 M/mcL (4.19-5.50); Red Cell Distribution Width 13.3 % (11.5-14.5); Segmented Neutrophils % 74.6 %; White Blood Count 8.9 K/mcL (4.3-11.1)
[2020-01-19 06:37] LABS: Alanine Aminotransferase 25 Units/L (7-52); Albumin 4.6 g/dL (3.5-5.7); Albumin/Globulin Ratio 1.6 (1.1-2.2); Alkaline Phosphatase 110 Units/L (34-104); Aspartate Amino Transferase 23 Units/L (13-39); BUN/Creatinine Ratio 8 (6-26); Bilirubin,Direct 0.2 mg/dL (0.0-0.2); Bilirubin,Indirect 0.7 mg/dL (0.0-1.0); Bilirubin,Total 0.9 mg/dL (0.3-1.0); Blood Urea Nitrogen 11 mg/dL (8-23); Calcium 9.5 mg/dL (8.6-10.3); Carbon Dioxide 27 mEq/L (23-29); Chloride 104 mEq/L (98-107); Globulin 2.8 g/dL (2.4-3.5); Glucose 146 mg/dL (70-105); Lipase 105 Units/L (11-82); Osmolality,Calculated 292 (280-300); Potassium 4.2 mEq/L (3.5-5.1); Sodium 140 mEq/L (136-145); Total Protein 7.4 g/dL (6.4-8.9); Troponin I < 0.03 ng/mL (< 0.04); eGFR For African Americans > 60 (> 60); eGFR For Non-African Americans 54 (> 60)
[2020-01-19] MEDS ORDERED: *HR* Promethazine 25 MG/ML VIAL IVPB ONE (06:57)
[2020-01-19] MEDS ORDERED: *HR* Promethazine 25 MG/ML VIAL IM ONE (07:05)
[2020-01-19] MEDS ORDERED: Ondansetron 4 MG/2 ML VIAL ONE ×2 (07:46→21:42)
[2020-01-19] MEDS ORDERED: *HR* OxyCODONE Immed Rel 5 MG TABLET PO PRN (08:13)
[2020-01-19] MEDS ORDERED: *HR* HYDROcodone/Acet 5/325 mg TABLET PO PRN (08:13)
[2020-01-19] MEDS ORDERED: Acetaminophen 325 MG TABLET PO PRN (08:13)
[2020-01-19] MEDS ORDERED: Naloxone 0.4 MG/ML INJ IVP PRN (08:13)
[2020-01-19] MEDS ORDERED: Morphine Sulfate 2 MG/ML SYRINGE IVP STA (08:13)
[2020-01-19 08:58] LABS: Chol/HDL Ratio 3.6 (0-4.9); Cholesterol 112 mg/dL (< 200); HDL Cholesterol 31 mg/dL (40-59); LDL Cholesterol,Calculated 57 mg/dL (< 100); Triglycerides 119 mg/dL (< 150)
[2020-01-19] MEDS ORDERED: Dextrose Gel 15 GM/37.5 ML TUBE PO PRN ×2 (10:20)
[2020-01-19] MEDS ORDERED: *HR* Dextrose 50 % in Water (Vial) 50 ML VIAL IVP PRN (10:20)
[2020-01-19] MEDS ORDERED: D5% in Water 1,000 ML IVC PRN (10:20)
[2020-01-19] MEDS ORDERED: Morphine Sulfate 2 MG/ML SYRINGE IVP PRN (10:46)
[2020-01-19] MEDS ORDERED: Ipratropium/Albuterol Neb 3 ML IH PRN (10:56)
[2020-01-19] MEDS: Ondansetron 4 MG/2 ML VIAL IVP SCH ×3 (11:00→17:50)
[2020-01-19] MEDS ORDERED: lisinopriL 20 MG TABLET PO SCH (11:15)
[2020-01-19] MEDS: 0.9 % Sodium Chloride 1,000 ML IVC SCH (12:12)
[2020-01-19] MEDS: *HR* Heparin 5,000 UNIT/ML VIAL SQ SCH ×2 (12:13→20:02)
[2020-01-19] MEDS: Insulin LISPRO 300 UNITS/3 ML VIAL SQ SCH ×2 (12:13→17:14)
[2020-01-19] MEDS ORDERED: Morphine Sulfate 2 MG/ML SYRINGE IVP ONE (13:18)
[2020-01-19 16:37] LABS: Bilirubin,Urine Negative (Negative); Blood,Urine Trace (Negative); Clarity,Urine Clear (Clear); Color,Urine Yellow (Yellow); Glucose,Urine (UA) Normal (Normal); Ketones,Urine Negative (Negative); Leukocyte Esterase,Urine Negative (Negative); Mucus,Urine Few per lpf (None-Few); Nitrite,Urine Negative (Negative); Protein,Urine Trace mg/dL (Neg-Trace); Specific Gravity,Urine > 1.030 (1.010-1.025); Squamous Epithelial Cell,Urine Few per hpf (None-Few); WBC,Urine 0-3 per hpf (0-3)
[2020-01-19] MEDS ORDERED: *HR* Propofol 200 MG/20 ML VIAL IVP ONE (19:57)
[2020-01-19] MEDS ORDERED: Piperacillin/Tazobactam 3.375 GM in 0.9 % Sodium Chloride Mini Bag 100 ML IVPB SCH (20:00)
[2020-01-19] MEDS ORDERED: Ringers Solution, Lactated 1,000 ML ONE (20:10)
[2020-01-19] MEDS ORDERED: *HR* HYDROmorphone PF 0.5 MG/0.5 ML SYRINGE IVP PRN (20:47)
[2020-01-19] MEDS ORDERED: *HR* FentaNYL (PF) 100 MCG/2 ML VIAL ONE (21:01)
[2020-01-19] MEDS ORDERED: Lidocaine -MPF 2% 2 ML VIAL ONE (21:10)
[2020-01-19] MEDS ORDERED: *HR* Succinylcholine 200 MG/10 ML VIAL IVP ONE (21:10)
[2020-01-19] MEDS ORDERED: *HR* Rocuronium Bromide 50 MG/5 ML VIAL ONE ×2 (21:10→23:52)
[2020-01-19] MEDS ORDERED: Dexamethasone 4 MG/ML VIAL ONE (21:42)
[2020-01-19] MEDS ORDERED: Isovue-300 50ML VIAL ONE (21:54)
[2020-01-20] MEDS ORDERED: Naloxone 0.4 MG/ML INJ IVP PRN (01:54)
[2020-01-20] MEDS ORDERED: D5% in Water 1,000 ML IVC PRN (01:54)
[2020-01-20] MEDS ORDERED: Dextrose Gel 15 GM/37.5 ML TUBE PO PRN ×2 (01:54)
[2020-01-20] MEDS ORDERED: *HR* Dextrose 50 % in Water (Vial) 50 ML VIAL IVP PRN (01:54)
[2020-01-20] MEDS ORDERED: Ipratropium/Albuterol Neb 3 ML IH PRN (01:54)
[2020-01-20] MEDS: 0.9 % Sodium Chloride 1,000 ML IVC SCH ×4 (02:09→16:27)
[2020-01-20] MEDS: *HR* OxyCODONE/APAP 5/325 TABLET PO PRN ×4 (02:23→19:52)
[2020-01-20 03:01] LABS: Basophils % 0.1 %; Eosinophils % 0.2 %; Hematocrit 50.3 % (37.5-50.1); Hemoglobin 16.4 g/dL (12.9-16.9); Immature Granulocytes % 0.6 % (0-4); Lymphocytes # 0.5 K/mcL (0.6-4.6); Lymphocytes % 2.3 %; Mean Corpuscular HGB Conc 32.6 g/dL (31.6-35.5); Mean Corpuscular Hemoglobin 32.1 pg (28.0-33.3); Mean Corpuscular Volume 98.4 fL (83.0-100.0); Mean Platelet Volume 10.6 fL (9.4-12.4); Monocytes # 1.6 K/mcL (0.0-1.3); Monocytes % 7.8 %; Neutrophils # 18.5 K/mcL (1.6-8.9); Platelet Count 190 K/mcL (140-400); Red Blood Count 5.11 M/mcL (4.19-5.50); Red Cell Distribution Width 13.6 % (11.5-14.5)
[2020-01-20 03:02] LABS: White Blood Count 20.8 K/mcL (4.3-11.1)
[2020-01-20 03:06] LABS: INR 1.1; Prothrombin Time 13.1 Seconds (9.4-12.1)
[2020-01-20 03:08] LABS: Activated Partial Thrombo Time 25.9 Seconds (26.0-36.0)
[2020-01-20 03:20] LABS: Albumin 3.9 g/dL (3.5-5.7); Albumin/Globulin Ratio 1.6 (1.1-2.2); Bilirubin,Total 1.4 mg/dL (0.3-1.0); Calcium 8.2 mg/dL (8.6-10.3); Globulin 2.5 g/dL (2.4-3.5); Magnesium 1.6 mg/dL (1.6-2.6); Phosphorous 2.7 mg/dL (2.7-4.5); Potassium 4.2 mEq/L (3.5-5.1); Total Protein 6.4 g/dL (6.4-8.9)
[2020-01-20] MEDS: Piperacillin/Tazobactam 3.375 GM in 0.9 % Sodium Chloride Mini Bag 100 ML IVPB SCH ×3 (04:11→19:52)
[2020-01-20] MEDS: Ketorolac 15 MG/ML VIAL IVP SCH ×4 (05:26→23:33)
[2020-01-20] MEDS: Ondansetron 4 MG/2 ML VIAL IVP SCH ×5 (05:27→23:32)
[2020-01-20] MEDS: *HR* Heparin 5,000 UNIT/ML VIAL SQ SCH ×3 (05:35→19:55)
[2020-01-20 05:52] LABS: Estimated Average Glucose 137 mg/dl
[2020-01-20] MEDS: Insulin LISPRO 300 UNITS/3 ML VIAL SQ SCH ×3 (08:30→16:25)
[2020-01-20] MEDS: lisinopriL 20 MG TABLET PO SCH (08:32)
[2020-01-20] MEDS ORDERED: lisinopriL 20 MG TABLET PO SCH (09:00)
[2020-01-21] MEDS: 0.9 % Sodium Chloride 1,000 ML IVC SCH (00:30)
[2020-01-21] MEDS: Piperacillin/Tazobactam 3.375 GM in 0.9 % Sodium Chloride Mini Bag 100 ML IVPB SCH (03:30)
[2020-01-21] MEDS: *HR* OxyCODONE/APAP 5/325 TABLET PO PRN (04:04)
[2020-01-21 05:17] LABS: Basophils % 0.2 %; Eosinophils # 0.1 K/mcL (0.0-0.6); Eosinophils % 0.4 %; Hematocrit 45.9 % (37.5-50.1); Immature Granulocytes % 0.3 % (0-4); Lymphocytes # 0.8 K/mcL (0.6-4.6); Mean Corpuscular HGB Conc 31.6 g/dL (31.6-35.5); Mean Corpuscular Hemoglobin 32.5 pg (28.0-33.3); Mean Corpuscular Volume 102.9 fL (83.0-100.0); Mean Platelet Volume 10.7 fL (9.4-12.4); Monocytes % 8.2 %; Platelet Count 142 K/mcL (140-400); Red Blood Count 4.46 M/mcL (4.19-5.50); Red Cell Distribution Width 13.9 % (11.5-14.5); Segmented Neutrophils % 83.9 %; White Blood Count 11.9 K/mcL (4.3-11.1)
[2020-01-21 05:19] LABS: Hemoglobin 14.5 g/dL (12.9-16.9)
[2020-01-21 05:26] LABS: Albumin 3.4 g/dL (3.5-5.7); Albumin/Globulin Ratio 1.6 (1.1-2.2); Bilirubin,Total 0.9 mg/dL (0.3-1.0); Calcium 7.6 mg/dL (8.6-10.3); Globulin 2.1 g/dL (2.4-3.5); Potassium 3.9 mEq/L (3.5-5.1); Total Protein 5.5 g/dL (6.4-8.9)
[2020-01-21] MEDS: Ketorolac 15 MG/ML VIAL IVP SCH (06:20)
[2020-01-21] MEDS: *HR* Heparin 5,000 UNIT/ML VIAL SQ SCH (06:20)
[2020-01-21] MEDS: Ondansetron 4 MG/2 ML VIAL IVP SCH (06:20)
[2020-01-21 06:34] VITALS: BP 120/73
[2020-01-21] MEDS: Insulin LISPRO 300 UNITS/3 ML VIAL SQ SCH (07:47)
[2020-01-21] MEDS: lisinopriL 20 MG TABLET PO SCH (07:57)
== END 2020-01-21 10:15 | disposition home or self-care (01) | DRG 412 ==
LOC: 3ANU 05:36 → EMEROOARM 05:36 → 3ANU 09:12
PROVIDERS: ADMIT Internal Medicine; ATTEND Internal Medicine

== ENCOUNTER 2020-03-04 11:08 | Inpatient (IN) ==
[2020-03-04 11:47] LABS: Basophils % 0.1 %; Eosinophils % 0.2 %; Hematocrit 52.3 % (37.5-50.1); Hemoglobin 17.2 g/dL (12.9-16.9); Immature Granulocytes % 0.5 % (0-4); Lymphocytes # 1.7 K/mcL (0.6-4.6); Lymphocytes % 10.9 %; Mean Corpuscular HGB Conc 32.9 g/dL (31.6-35.5); Mean Corpuscular Hemoglobin 31.4 pg (28.0-33.3); Mean Corpuscular Volume 95.6 fL (83.0-100.0); Mean Platelet Volume 10.3 fL (9.4-12.4); Monocytes # 1.1 K/mcL (0.0-1.3); Monocytes % 7.3 %; Neutrophils # 12.7 K/mcL (1.6-8.9); Platelet Count 192 K/mcL (140-400); Red Blood Count 5.47 M/mcL (4.19-5.50); White Blood Count 15.7 K/mcL (4.3-11.1)
[2020-03-04 12:12] LABS: BUN/Creatinine Ratio 10 (6-26); Blood Urea Nitrogen 12 mg/dL (8-23); Calcium 9.1 mg/dL (8.6-10.3); Carbon Dioxide 24 mEq/L (23-29); Chloride 105 mEq/L (98-107); Glucose 129 mg/dL (70-105); Osmolality,Calculated 291 (280-300); Potassium 3.6 mEq/L (3.5-5.1); Sodium 140 mEq/L (136-145); eGFR For African Americans > 60 (> 60); eGFR For Non-African Americans > 60 (> 60)
[2020-03-04] MEDS ORDERED: Isovue-370 500 ML BOTTLE IVP ONE (12:27)
[2020-03-04] MEDS ORDERED: 0.9 % Sodium Chloride 1,000 ML IVC ONE (12:27)
[2020-03-04] MEDS ORDERED: Morphine Sulfate 2 MG/ML SYRINGE IVP ONE ×2 (12:38→14:56)
[2020-03-04] MEDS ORDERED: Morphine Sulfate 2 MG/ML SYRINGE ONE (12:56)
[2020-03-04] MEDS ORDERED: 0.9 % Sodium Chloride 1,000 ML ONE (12:57)
[2020-03-04 14:14] LABS: Alanine Aminotransferase 20 Units/L (7-52); Albumin 4.2 g/dL (3.5-5.7); Albumin/Globulin Ratio 1.3 (1.1-2.2); Alkaline Phosphatase 134 Units/L (34-104); Aspartate Amino Transferase 20 Units/L (13-39); Bilirubin,Direct 0.1 mg/dL (0.0-0.2); Bilirubin,Indirect 0.6 mg/dL (0.0-1.0); Bilirubin,Total 0.7 mg/dL (0.3-1.0); Globulin 3.3 g/dL (2.4-3.5); Lipase 1305 Units/L (11-82); Total Protein 7.5 g/dL (6.4-8.9)
[2020-03-04 14:20] LABS: Bilirubin,Urine Negative (Negative); Blood,Urine Small (Negative); Clarity,Urine Clear (Clear); Color,Urine Light-Yellow (Yellow); Glucose,Urine (UA) Normal (Normal); Ketones,Urine Negative (Negative); Leukocyte Esterase,Urine Negative (Negative); Mucus,Urine Few per lpf (None-Few); Nitrite,Urine Negative (Negative); Protein,Urine Negative (Neg-Trace); Specific Gravity,Urine > 1.030 (1.010-1.025); Urobilinogen,Urine Normal (Normal); WBC,Urine 0-3 per hpf (0-3)
[2020-03-04] MEDS ORDERED: Ringers Solution, Lactated 1,000 ML IVC ONE (15:30)
[2020-03-04] MEDS ORDERED: Ketorolac 30 MG/ML VIAL IVP PRN (15:35)
[2020-03-04] MEDS ORDERED: Naloxone 0.4 MG/ML INJ IVP PRN (15:35)
[2020-03-04] MEDS ORDERED: Morphine Sulfate 2 MG/ML SYRINGE IVP PRN ×2 (15:35→17:15)
[2020-03-04] MEDS ORDERED: Acetaminophen 325 MG TABLET PO PRN (15:35)
[2020-03-04] MEDS ORDERED: Melatonin 3 MG TABLET PO PRN (15:43)
[2020-03-04] MEDS ORDERED: Ringers Solution, Lactated 1,000 ML IVC SCH ×2 (15:45→17:13)
[2020-03-04 17:48] LABS: Chol/HDL Ratio 3.6 (0-4.9); Cholesterol 135 mg/dL (< 200); Ethanol < 10 mg/dL (Less than 10); HDL Cholesterol 37 mg/dL (40-59); LDL Cholesterol,Calculated 76 mg/dL (< 100); Triglycerides 112 mg/dL (< 150)
[2020-03-04] MEDS: *HR* HYDROmorphone 2 MG/ML SYRINGE IVP PRN (17:52)
[2020-03-04] MEDS: Ringers Solution, Lactated 1,000 ML IVC SCH (18:25)
[2020-03-04] MEDS: Ondansetron 4 MG/2 ML VIAL IVP PRN (18:44)
[2020-03-05] MEDS: *HR* HYDROmorphone 2 MG/ML SYRINGE IVP PRN ×4 (00:10→21:20)
[2020-03-05 05:18] LABS: Basophils % 0.1 %; Eosinophils % 0.1 %; Hematocrit 48.8 % (37.5-50.1); Immature Granulocytes % 0.6 % (0-4); Lymphocytes # 0.9 K/mcL (0.6-4.6); Lymphocytes % 5.7 %; Mean Corpuscular HGB Conc 32.8 g/dL (31.6-35.5); Mean Corpuscular Hemoglobin 32.4 pg (28.0-33.3); Mean Corpuscular Volume 98.8 fL (83.0-100.0); Mean Platelet Volume 10.2 fL (9.4-12.4); Monocytes # 1.4 K/mcL (0.0-1.3); Platelet Count 167 K/mcL (140-400); Red Blood Count 4.94 M/mcL (4.19-5.50); Red Cell Distribution Width 13.4 % (11.5-14.5); Segmented Neutrophils % 84.5 %; White Blood Count 15.4 K/mcL (4.3-11.1)
[2020-03-05 05:21] LABS: INR 1.2; Prothrombin Time 13.6 Seconds (9.4-12.1)
[2020-03-05 05:23] LABS: Activated Partial Thrombo Time 26.8 Seconds (26.0-36.0)
[2020-03-05 05:32] LABS: Alanine Aminotransferase 14 Units/L (7-52); Albumin 3.7 g/dL (3.5-5.7); Albumin/Globulin Ratio 1.3 (1.1-2.2); Alkaline Phosphatase 102 Units/L (34-104); Aspartate Amino Transferase 14 Units/L (13-39); BUN/Creatinine Ratio 10 (6-26); Bilirubin,Total 1.1 mg/dL (0.3-1.0); Blood Urea Nitrogen 13 mg/dL (8-23); Calcium 8.6 mg/dL (8.6-10.3); Carbon Dioxide 28 mEq/L (23-29); Chloride 104 mEq/L (98-107); Globulin 2.9 g/dL (2.4-3.5); Glucose 118 mg/dL (70-105); Magnesium 1.6 mg/dL (1.6-2.6); Osmolality,Calculated 291 (280-300); Phosphorous 3.8 mg/dL (2.7-4.5); Potassium 4.3 mEq/L (3.5-5.1); Sodium 140 mEq/L (136-145); Total Protein 6.6 g/dL (6.4-8.9); eGFR For African Americans > 60 (> 60); eGFR For Non-African Americans 58 (> 60)
[2020-03-05 05:33] LABS: Bacteria,Urine Few per hpf (None-Few); Bilirubin,Urine Negative (Negative); Blood,Urine Moderate (Negative); Clarity,Urine Clear (Clear); Color,Urine Light-Orange (Yellow); Glucose,Urine (UA) Normal (Normal); Ketones,Urine Negative (Negative); Leukocyte Esterase,Urine Negative (Negative); Mucus,Urine Moderate per lpf (None-Few); Nitrite,Urine Negative (Negative); PH,Urine 5.5 pH Units (5.0-8.0); Protein,Urine Trace mg/dL (Neg-Trace); Specific Gravity,Urine > 1.030 (1.010-1.025); Squamous Epithelial Cell,Urine Few per hpf (None-Few); Urobilinogen,Urine Normal (Normal); WBC,Urine 0-3 per hpf (0-3)
[2020-03-05] MEDS: Ringers Solution, Lactated 1,000 ML IVC SCH (06:02)
[2020-03-05] MEDS: *HR* Enoxaparin 40 MG/0.4 ML SYRINGE SQ SCH (06:02)
[2020-03-05] MEDS: Ondansetron 4 MG/2 ML VIAL IVP PRN (11:20)
[2020-03-05] MEDS: 0.9 % Sodium Chloride 1,000 ML IVC SCH ×2 (15:09→19:43)
[2020-03-06] MEDS: 0.9 % Sodium Chloride 1,000 ML IVC SCH ×5 (03:36→22:18)
[2020-03-06] MEDS: *HR* HYDROmorphone 2 MG/ML SYRINGE IVP PRN ×4 (03:37→22:16)
[2020-03-06] MEDS: *HR* Enoxaparin 40 MG/0.4 ML SYRINGE SQ SCH (04:58)
[2020-03-06 07:00] LABS: Basophils % 0.2 %; Eosinophils # 0.1 K/mcL (0.0-0.6); Eosinophils % 0.7 %; Hematocrit 43.4 % (37.5-50.1); Immature Granulocytes % 0.5 % (0-4); Lymphocytes % 7.6 %; Mean Corpuscular HGB Conc 32.7 g/dL (31.6-35.5); Mean Corpuscular Hemoglobin 32.5 pg (28.0-33.3); Mean Corpuscular Volume 99.3 fL (83.0-100.0); Mean Platelet Volume 9.9 fL (9.4-12.4); Monocytes # 0.8 K/mcL (0.0-1.3); Neutrophils # 11.2 K/mcL (1.6-8.9); Platelet Count 128 K/mcL (140-400); Red Blood Count 4.37 M/mcL (4.19-5.50); Red Cell Distribution Width 13.4 % (11.5-14.5); White Blood Count 13.1 K/mcL (4.3-11.1)
[2020-03-06 07:05] LABS: Hemoglobin 14.2 g/dL (12.9-16.9)
[2020-03-06 07:14] LABS: BUN/Creatinine Ratio 13 (6-26); Blood Urea Nitrogen 13 mg/dL (8-23); Carbon Dioxide 24 mEq/L (23-29); Chloride 106 mEq/L (98-107); Glucose 97 mg/dL (70-105); Osmolality,Calculated 284 (280-300); Potassium 3.5 mEq/L (3.5-5.1); Sodium 137 mEq/L (136-145); eGFR For African Americans > 60 (> 60); eGFR For Non-African Americans > 60 (> 60)
[2020-03-06] MEDS: Ringers Solution, Lactated 1,000 ML IVC SCH (07:19)
[2020-03-06] MEDS: Gabapentin 400 MG CAPSULE PO SCH ×2 (08:36→20:42)
[2020-03-06 13:22] LABS: Influenza A PCR Negative (Negative); Influenza B PCR Negative (Negative); Resp. Syncytial Virus PCR Negative (Negative)
[2020-03-06 13:27] LABS: SARS-CoV-2 by PCR (In House) Negative (Negative)
[2020-03-06 17:33] LABS: Bacteria,Urine Few per hpf (None-Few); Mucus,Urine Few per lpf (None-Few); RBC,Urine 50-100 per hpf (0-3); Squamous Epithelial Cell,Urine Few per hpf (None-Few); WBC,Urine 0-3 per hpf (0-3)
[2020-03-07 03:12] LABS: Basophils % 0.1 %; Eosinophils # 0.2 K/mcL (0.0-0.6); Eosinophils % 1.5 %; Hematocrit 40.7 % (37.5-50.1); Immature Granulocytes % 0.4 % (0-4); Lymphocytes # 1.3 K/mcL (0.6-4.6); Lymphocytes % 11.8 %; Mean Corpuscular HGB Conc 31.9 g/dL (31.6-35.5); Mean Corpuscular Hemoglobin 31.2 pg (28.0-33.3); Mean Corpuscular Volume 97.6 fL (83.0-100.0); Mean Platelet Volume 10.4 fL (9.4-12.4); Monocytes # 0.8 K/mcL (0.0-1.3); Monocytes % 6.8 %; Platelet Count 143 K/mcL (140-400); Red Blood Count 4.17 M/mcL (4.19-5.50); Red Cell Distribution Width 13.2 % (11.5-14.5); Segmented Neutrophils % 79.4 %; White Blood Count 11.3 K/mcL (4.3-11.1)
[2020-03-07] MEDS: *HR* HYDROmorphone 2 MG/ML SYRINGE IVP PRN (04:37)
[2020-03-07] MEDS: *HR* Enoxaparin 40 MG/0.4 ML SYRINGE SQ SCH (06:13)
[2020-03-07] MEDS: 0.9 % Sodium Chloride 1,000 ML IVC SCH (06:14)
[2020-03-07 06:56] VITALS: BP 125/74
[2020-03-07] MEDS: Gabapentin 400 MG CAPSULE PO SCH (07:44)
== END 2020-03-07 10:31 | disposition home or self-care (01) | DRG 393 ==
LOC: EMEROOARM 11:08 → 3BNU 11:08 → SUATTDRO 15:26 → 3BNU 16:43
PROVIDERS: ADMIT Internal Medicine; ATTEND Internal Medicine

== ENCOUNTER 2020-04-27 09:40 | Inpatient (IN) ==
[2020-04-27] MEDS ORDERED: Morphine Sulfate 2 MG/ML SYRINGE IVP ONE (10:02)
[2020-04-27] MEDS ORDERED: 0.9 % Sodium Chloride 1,000 ML IVC ONE (10:02)
[2020-04-27 10:48] LABS: Basophils % 0.2 %; Eosinophils % 0.3 %; Hematocrit 54.2 % (37.5-50.1); Hemoglobin 17.9 g/dL (12.9-16.9); Immature Granulocytes % 0.4 % (0-4); Lymphocytes # 1.2 K/mcL (0.6-4.6); Lymphocytes % 8.6 %; Mean Corpuscular Hemoglobin 31.6 pg (28.0-33.3); Mean Corpuscular Volume 95.8 fL (83.0-100.0); Mean Platelet Volume 9.8 fL (9.4-12.4); Monocytes # 0.9 K/mcL (0.0-1.3); Monocytes % 6.7 %; Neutrophils # 11.6 K/mcL (1.6-8.9); Platelet Count 238 K/mcL (140-400); Red Blood Count 5.66 M/mcL (4.19-5.50); Red Cell Distribution Width 14.5 % (11.5-14.5); Segmented Neutrophils % 83.8 %; White Blood Count 13.8 K/mcL (4.3-11.1)
[2020-04-27 11:03] LABS: Bacteria,Urine Few per hpf (None-Few); Bilirubin,Urine Negative (Negative); Blood,Urine Negative (Negative); Clarity,Urine Clear (Clear); Color,Urine Yellow (Yellow); Glucose,Urine (UA) Normal (Normal); Hyaline Casts,Urine Few per lpf (None Seen); Ketones,Urine Negative (Negative); Leukocyte Esterase,Urine Negative (Negative); Mucus,Urine Few per lpf (None-Few); Nitrite,Urine Negative (Negative); PH,Urine 6.5 pH Units (5.0-8.0); Protein,Urine 50 mg/dL (Neg-Trace); Specific Gravity,Urine > 1.030 (1.010-1.025); Squamous Epithelial Cell,Urine Few per hpf (None-Few); WBC,Urine 0-3 per hpf (0-3)
[2020-04-27 11:19] LABS: Alanine Aminotransferase 27 Units/L (7-52); Albumin 4.3 g/dL (3.5-5.7); Albumin/Globulin Ratio 1.3 (1.1-2.2); Alkaline Phosphatase 135 Units/L (34-104); Amylase 54 Units/L (29-103); Aspartate Amino Transferase 25 Units/L (13-39); BUN/Creatinine Ratio 12 (6-26); Bilirubin,Direct 0.3 mg/dL (0.0-0.2); Bilirubin,Indirect 1.1 mg/dL (0.0-1.0); Bilirubin,Total 1.4 mg/dL (0.3-1.0); Blood Urea Nitrogen 13 mg/dL (8-23); Calcium 9.4 mg/dL (8.6-10.3); Carbon Dioxide 25 mEq/L (23-29); Chloride 104 mEq/L (98-107); Globulin 3.2 g/dL (2.4-3.5); Glucose 145 mg/dL (70-105); Lipase 45 Units/L (11-82); Osmolality,Calculated 287 (280-300); Potassium 4.5 mEq/L (3.5-5.1); Sodium 137 mEq/L (136-145); Total Protein 7.5 g/dL (6.4-8.9); eGFR For African Americans > 60 (> 60); eGFR For Non-African Americans > 60 (> 60)
[2020-04-27] MEDS ORDERED: *HR* FentaNYL (PF) 100 MCG/2 ML VIAL IVP ONE (12:58)
[2020-04-27] MEDS ORDERED: cefTRIAXone 1,000 MG in Water for inj. (sterile) 10 ML IVP ONE (13:22)
[2020-04-27] MEDS ORDERED: polyethylene glycoL 3350 17 GM POWD.PACK PO PRN (14:28)
[2020-04-27] MEDS ORDERED: D5% in Water 1,000 ML IVC PRN (14:35)
[2020-04-27] MEDS ORDERED: *HR* Dextrose 50 % in Water (Vial) 50 ML VIAL IVP PRN (14:35)
[2020-04-27] MEDS ORDERED: Dextrose Gel 15 GM/37.5 ML TUBE PO PRN ×2 (14:35)
[2020-04-27] MEDS ORDERED: Naloxone 0.4 MG/ML INJ IVP PRN (14:37)
[2020-04-27] MEDS ORDERED: Ondansetron 4 MG/2 ML VIAL IVP PRN (14:37)
[2020-04-27] MEDS ORDERED: Ibuprofen 400 MG TABLET PO PRN (14:37)
[2020-04-27] MEDS ORDERED: Gabapentin 400 MG CAPSULE PO SCH (15:00)
[2020-04-27] MEDS ORDERED: *HR* OxyCODONE/APAP 10/325 TABLET PO SCH (15:00)
[2020-04-27] MEDS: 0.9 % Sodium Chloride 1,000 ML IVC SCH ×2 (15:46→23:22)
[2020-04-27] MEDS: Insulin LISPRO 300 UNITS/3 ML VIAL SUBQ SCH (18:00)
[2020-04-27] MEDS: *HR* Heparin 5,000 UNIT/ML VIAL SQ SCH (18:01)
[2020-04-28] MEDS: Insulin LISPRO 300 UNITS/3 ML VIAL SUBQ SCH ×2 (00:30→09:31)
[2020-04-28 03:02] LABS: Basophils % 0.2 %; Eosinophils # 0.2 K/mcL (0.0-0.6); Eosinophils % 1.6 %; Hematocrit 50.1 % (37.5-50.1); Hemoglobin 16.2 g/dL (12.9-16.9); Immature Granulocytes % 0.4 % (0-4); Lymphocytes # 1.5 K/mcL (0.6-4.6); Lymphocytes % 13.2 %; Mean Corpuscular HGB Conc 32.3 g/dL (31.6-35.5); Mean Corpuscular Hemoglobin 31.6 pg (28.0-33.3); Mean Corpuscular Volume 97.7 fL (83.0-100.0); Mean Platelet Volume 10.1 fL (9.4-12.4); Monocytes % 9.1 %; Neutrophils # 8.3 K/mcL (1.6-8.9); Platelet Count 189 K/mcL (140-400); Red Blood Count 5.13 M/mcL (4.19-5.50); Red Cell Distribution Width 14.6 % (11.5-14.5); Segmented Neutrophils % 75.5 %
[2020-04-28 03:25] LABS: Alanine Aminotransferase 17 Units/L (7-52); Albumin 3.9 g/dL (3.5-5.7); Albumin/Globulin Ratio 1.4 (1.1-2.2); Alkaline Phosphatase 111 Units/L (34-104); Aspartate Amino Transferase 17 Units/L (13-39); BUN/Creatinine Ratio 13 (6-26); Bilirubin,Total 1.2 mg/dL (0.3-1.0); Blood Urea Nitrogen 15 mg/dL (8-23); Calcium 8.7 mg/dL (8.6-10.3); Carbon Dioxide 25 mEq/L (23-29); Chloride 104 mEq/L (98-107); Globulin 2.7 g/dL (2.4-3.5); Glucose 104 mg/dL (70-105); Osmolality,Calculated 285 (280-300); Potassium 4.1 mEq/L (3.5-5.1); Sodium 137 mEq/L (136-145); Total Protein 6.6 g/dL (6.4-8.9); eGFR For African Americans > 60 (> 60); eGFR For Non-African Americans > 60 (> 60)
[2020-04-28] MEDS: *HR* Heparin 5,000 UNIT/ML VIAL SQ SCH ×2 (05:16→18:05)
[2020-04-28] MEDS: 0.9 % Sodium Chloride 1,000 ML IVC SCH (05:19)
[2020-04-28 07:11] LABS: Estimated Average Glucose 128 mg/dl; Hemoglobin A1C 6.1 %
[2020-04-28] MEDS ORDERED: Aspirin Enteric Coated 81 MG Tablet PO SCH (09:00)
[2020-04-28] MEDS: Pantoprazole 40 MG VIAL IVP SCH (09:32)
[2020-04-28] MEDS: lisinopriL 20 MG TABLET PO SCH (09:34)
[2020-04-29] MEDS: *HR* Heparin 5,000 UNIT/ML VIAL SQ SCH (05:51)
[2020-04-29] MEDS: lisinopriL 20 MG TABLET PO SCH (10:04)
[2020-04-29] MEDS: Pantoprazole 40 MG VIAL IVP SCH (10:29)
[2020-04-29 11:25] VITALS: BP 137/80
== END 2020-04-29 14:51 | disposition home or self-care (01) | DRG 390 ==
LOC: EMEROOARM 09:40 → 3ANU 09:40 → SUATTDRO 14:02 → 3ANU 14:56
PROVIDERS: ADMIT Internal Medicine; ATTEND Internal Medicine

== ENCOUNTER 2021-09-20 11:57 | Inpatient (IN) ==
[2021-09-20] MEDS ORDERED: 0.9 % Sodium Chloride 1,000 ML IVC ONE (12:18)
[2021-09-20] MEDS ORDERED: Morphine Sulfate 2 MG/ML SYRINGE IVP ONE ×2 (12:19→18:51)
[2021-09-20] MEDS ORDERED: Ondansetron 4 MG/2 ML VIAL IVP STA (12:19)
[2021-09-20] MEDS ORDERED: Famotidine 20 MG/2 ML VIAL IVP ONE ×2 (12:19→23:52)
[2021-09-20] MEDS ORDERED: Acetaminophen 325 MG TABLET PO ONE (12:27)
[2021-09-20 12:34] LABS: Basophils % 0.4 %; Eosinophils % 0.2 %; Hematocrit 52.1 % (37.5-50.1); Hemoglobin 17.3 g/dL (12.9-16.9); Immature Granulocytes % 0.6 % (0-4); Lymphocytes # 0.5 K/mcL (0.6-4.6); Lymphocytes % 6.2 %; Mean Corpuscular HGB Conc 33.2 g/dL (31.6-35.5); Mean Corpuscular Hemoglobin 32.4 pg (28.0-33.3); Mean Corpuscular Volume 97.6 fL (83.0-100.0); Mean Platelet Volume 11.7 fL (9.4-12.4); Monocytes # 0.3 K/mcL (0.0-1.3); Monocytes % 3.6 %; Neutrophils # 7.5 K/mcL (1.6-8.9); Platelet Count 181 K/mcL (140-400); Red Blood Count 5.34 M/mcL (4.19-5.50); Red Cell Distribution Width 14.1 % (11.5-14.5); White Blood Count 8.4 K/mcL (4.3-11.1)
[2021-09-20 12:41] LABS: Prothrombin Time 11.6 Seconds (9.4-12.1)
[2021-09-20 12:54] LABS: Alanine Aminotransferase 115 Units/L (7-52); Albumin 3.7 g/dL (3.5-5.7); Alkaline Phosphatase 548 Units/L (34-104); Aspartate Amino Transferase 119 Units/L (13-39); BUN/Creatinine Ratio 11 (6-26); Bilirubin,Direct 6.6 mg/dL (0.0-0.2); Bilirubin,Indirect 3.5 mg/dL (0.0-1.0); Bilirubin,Total 10.1 mg/dL (0.3-1.0); Blood Urea Nitrogen 16 mg/dL (8-23); Calcium 8.9 mg/dL (8.6-10.3); Carbon Dioxide 26 mEq/L (23-29); Chloride 98 mEq/L (98-107); Globulin 3.6 g/dL (2.4-3.5); Glucose 255 mg/dL (70-105); Osmolality,Calculated 288 (280-300); Potassium 4.2 mEq/L (3.5-5.1); Sodium 134 mEq/L (136-145); Total Protein 7.3 g/dL (6.4-8.9); eGFR For African Americans > 60 (> 60); eGFR For Non-African Americans 52 (> 60)
[2021-09-20 15:08] LABS: Bacteria,Urine Few per hpf (None-Few); Bilirubin,Urine Moderate (Negative); Blood,Urine Negative (Negative); Clarity,Urine Turbid (Clear); Color,Urine Dark-Yellow (Yellow); Glucose,Urine (UA) >=1000 mg/dL (Normal); Hyaline Casts,Urine Few per lpf (None Seen); Ketones,Urine Trace mg/dL (Negative); Leukocyte Esterase,Urine Negative (Negative); Mucus,Urine Moderate per lpf (None-Few); Nitrite,Urine Negative (Negative); Protein,Urine 30 mg/dL (Neg-Trace); RBC,Urine 0-3 per hpf (0-3); Specific Gravity,Urine > 1.030 (1.010-1.025); Squamous Epithelial Cell,Urine Few per hpf (None-Few); Urobilinogen,Urine >=8.0 mg/dL (Normal)
[2021-09-20] MEDS ORDERED: Piperacillin/Tazobactam 3.375 GM in 0.9 % Sodium Chloride Mini Bag 100 ML IVPB ONE (18:43)
[2021-09-20] MEDS ORDERED: Ondansetron 4 MG/2 ML VIAL IVP PRN (19:57)
[2021-09-20] MEDS ORDERED: Naloxone 0.4 MG/ML INJ IVP PRN (19:57)
[2021-09-20] MEDS ORDERED: Acetaminophen 325 MG TABLET PO PRN (19:57)
[2021-09-20] MEDS ORDERED: 0.9 % Sodium Chloride 1,000 ML IVC SCH (20:00)
[2021-09-20] MEDS ORDERED: *HR* FentaNYL (PF) 100 MCG/2 ML VIAL ONE (23:40)
[2021-09-20] MEDS ORDERED: Lidocaine -MPF 2% 5 ML VIAL ONE (23:42)
[2021-09-20] MEDS ORDERED: Ondansetron 4 MG/2 ML VIAL ONE (23:42)
[2021-09-20] MEDS ORDERED: *HR* Rocuronium Bromide 50 MG/5 ML VIAL ONE (23:42)
[2021-09-20] MEDS ORDERED: *HR* Succinylcholine 200 MG/10 ML VIAL IVP ONE (23:43)
[2021-09-21] MEDS ORDERED: *HR* FentaNYL (PF) 100 MCG/2 ML VIAL ONE (00:48)
[2021-09-21] MEDS ORDERED: Sugammadex Sodium 200 MG/2 ML VIAL IV ONE (01:05)
[2021-09-21] MEDS ORDERED: *HR* HYDROmorphone PF 0.5 MG/0.5 ML SYRINGE IVP PRN (01:43)
[2021-09-21] MEDS: Piperacillin/Tazobactam 3.375 GM in 0.9 % Sodium Chloride Mini Bag 100 ML IVPB SCH ×3 (03:31→20:54)
[2021-09-21 05:44] LABS: Hematocrit 45.7 % (37.5-50.1); Mean Corpuscular HGB Conc 32.8 g/dL (31.6-35.5); Mean Corpuscular Hemoglobin 32.2 pg (28.0-33.3); Mean Corpuscular Volume 98.1 fL (83.0-100.0); Mean Platelet Volume 11.7 fL (9.4-12.4); Platelet Count 145 K/mcL (140-400); Red Blood Count 4.66 M/mcL (4.19-5.50); Red Cell Distribution Width 14.3 % (11.5-14.5)
[2021-09-21 06:02] LABS: BUN/Creatinine Ratio 13 (6-26); Blood Urea Nitrogen 18 mg/dL (8-23); Calcium 8.2 mg/dL (8.6-10.3); Carbon Dioxide 25 mEq/L (23-29); Chloride 99 mEq/L (98-107); Glucose 307 mg/dL (70-105); Osmolality,Calculated 287 (280-300); Potassium 4.7 mEq/L (3.5-5.1); Sodium 132 mEq/L (136-145); eGFR For African Americans > 60 (> 60); eGFR For Non-African Americans 54 (> 60)
[2021-09-21 10:56] LABS: Albumin 3.3 g/dL (3.5-5.7); Bilirubin,Direct 5.2 mg/dL (0.0-0.2); Bilirubin,Indirect 2.6 mg/dL (0.0-1.0); Bilirubin,Total 7.8 mg/dL (0.3-1.0); Globulin 3.2 g/dL (2.4-3.5); Total Protein 6.5 g/dL (6.4-8.9)
[2021-09-21] MEDS: *HR* OxyCODONE Oral Soln 5 MG/5 ML UD.LIQ PO PRN ×2 (15:46→22:37)
[2021-09-21] MEDS ORDERED: Gabapentin 400 MG CAPSULE PO ONE (21:03)
[2021-09-22 02:38] LABS: Basophils % 0.3 %; Eosinophils % 0.1 %; Hematocrit 47.5 % (37.5-50.1); Hemoglobin 15.6 g/dL (12.9-16.9); Immature Granulocytes % 0.6 % (0-4); Lymphocytes # 0.4 K/mcL (0.6-4.6); Lymphocytes % 3.6 %; Mean Corpuscular HGB Conc 32.8 g/dL (31.6-35.5); Mean Corpuscular Hemoglobin 32.2 pg (28.0-33.3); Mean Corpuscular Volume 97.9 fL (83.0-100.0); Mean Platelet Volume 11.9 fL (9.4-12.4); Monocytes # 0.6 K/mcL (0.0-1.3); Monocytes % 6.3 %; Neutrophils # 8.9 K/mcL (1.6-8.9); Platelet Count 162 K/mcL (140-400); Red Blood Count 4.85 M/mcL (4.19-5.50); Red Cell Distribution Width 14.5 % (11.5-14.5); Segmented Neutrophils % 89.1 %
[2021-09-22 02:54] LABS: Alanine Aminotransferase 93 Units/L (7-52); Albumin 3.3 g/dL (3.5-5.7); Alkaline Phosphatase 448 Units/L (34-104); Aspartate Amino Transferase 112 Units/L (13-39); BUN/Creatinine Ratio 13 (6-26); Bilirubin,Total 10.2 mg/dL (0.3-1.0); Blood Urea Nitrogen 18 mg/dL (8-23); Calcium 8.5 mg/dL (8.6-10.3); Carbon Dioxide 25 mEq/L (23-29); Chloride 99 mEq/L (98-107); Globulin 3.3 g/dL (2.4-3.5); Glucose 299 mg/dL (70-105); Osmolality,Calculated 287 (280-300); Potassium 4.2 mEq/L (3.5-5.1); Sodium 132 mEq/L (136-145); Total Protein 6.6 g/dL (6.4-8.9); eGFR For African Americans > 60 (> 60); eGFR For Non-African Americans 53 (> 60)
[2021-09-22] MEDS: Piperacillin/Tazobactam 3.375 GM in 0.9 % Sodium Chloride Mini Bag 100 ML IVPB SCH ×3 (03:57→19:57)
[2021-09-22] MEDS: *HR* OxyCODONE Oral Soln 5 MG/5 ML UD.LIQ PO PRN ×2 (11:05→20:10)
[2021-09-22] MEDS ORDERED: *HR* FentaNYL (PF) 100 MCG/2 ML VIAL IVP PRN (11:23)
[2021-09-22] MEDS ORDERED: Promethazine 6.25 MG in Water for inj. (sterile) 20 ML IVPB PRN (11:23)
[2021-09-22] MEDS ORDERED: Ondansetron 4 MG/2 ML VIAL IVP PRN (11:23)
[2021-09-22] MEDS ORDERED: 0.9 % Sodium Chloride 1,000 ML IVC SCH (16:00)
[2021-09-22] MEDS ORDERED: *HR* Rocuronium Bromide 50 MG/5 ML VIAL ONE (16:15)
[2021-09-22] MEDS ORDERED: Lidocaine HCL 4 ML Topical Solution (Laryng-O-Jet Kit Sterile Pak) TP ONE (16:15)
[2021-09-22] MEDS ORDERED: Ondansetron 4 MG/2 ML VIAL ONE (16:15)
[2021-09-22] MEDS ORDERED: *HR* Succinylcholine 200 MG/10 ML VIAL IVP ONE (16:15)
[2021-09-22] MEDS ORDERED: Lidocaine -MPF 2% 5 ML VIAL ONE (16:15)
[2021-09-22] MEDS ORDERED: *HR* Propofol 200 MG/20 ML VIAL IVP ONE (16:16)
[2021-09-22] MEDS ORDERED: *HR* FentaNYL (PF) 100 MCG/2 ML VIAL ONE (16:16)
[2021-09-22] MEDS ORDERED: Indomethacin 50 MG SUPP.RECT RC ONE (17:04)
[2021-09-23] MEDS: Piperacillin/Tazobactam 3.375 GM in 0.9 % Sodium Chloride Mini Bag 100 ML IVPB SCH ×3 (04:21→20:15)
[2021-09-23] MEDS: *HR* OxyCODONE Oral Soln 5 MG/5 ML UD.LIQ PO PRN ×3 (04:22→22:05)
[2021-09-23 05:35] LABS: Basophils % 0.1 %; Hemoglobin 14.1 g/dL (12.9-16.9); Immature Granulocytes % 0.7 % (0-4); Lymphocytes % 5.6 %
[2021-09-23 05:37] LABS: Hematocrit 43.5 % (37.5-50.1); Immature Platelets 7.9 % (1.1-6.1); Lymphocytes # 0.5 K/mcL (0.6-4.6); Mean Corpuscular HGB Conc 32.4 g/dL (31.6-35.5); Mean Corpuscular Hemoglobin 32.7 pg (28.0-33.3); Mean Corpuscular Volume 100.9 fL (83.0-100.0); Mean Platelet Volume 12.1 fL (9.4-12.4); Monocytes # 0.6 K/mcL (0.0-1.3); Monocytes % 6.8 %; Neutrophils # 7.2 K/mcL (1.6-8.9); Platelet Count 127 K/mcL (140-400); Red Blood Count 4.31 M/mcL (4.19-5.50); Red Cell Distribution Width 14.6 % (11.5-14.5); Segmented Neutrophils % 86.8 %; White Blood Count 8.3 K/mcL (4.3-11.1)
[2021-09-23 05:49] LABS: Alanine Aminotransferase 98 Units/L (7-52); Albumin 2.9 g/dL (3.5-5.7); Alkaline Phosphatase 462 Units/L (34-104); Aspartate Amino Transferase 100 Units/L (13-39); BUN/Creatinine Ratio 16 (6-26); Bilirubin,Total 12.1 mg/dL (0.3-1.0); Blood Urea Nitrogen 23 mg/dL (8-23); Carbon Dioxide 25 mEq/L (23-29); Chloride 98 mEq/L (98-107); Glucose 462 mg/dL (70-105); Lipase 263 Units/L (11-82); Osmolality,Calculated 300 (280-300); Potassium 4.4 mEq/L (3.5-5.1); Sodium 133 mEq/L (136-145); Total Protein 5.9 g/dL (6.4-8.9); eGFR For African Americans > 60 (> 60); eGFR For Non-African Americans 50 (> 60)
[2021-09-23] MEDS ORDERED: Insulin LISPRO 300 UNITS/3 ML VIAL SUBQ SCH ×2 (08:00→21:00)
[2021-09-23] MEDS ORDERED: *HR* Dextrose 50 % in Water (Syg) 50 ML SYRINGE IVP PRN (08:10)
[2021-09-23] MEDS ORDERED: Dextrose Gel 15 GM/37.5 ML TUBE PO PRN ×2 (08:10)
[2021-09-23] MEDS ORDERED: D5% in Water 1,000 ML IVC PRN (08:10)
[2021-09-23] MEDS: 0.9 % Sodium Chloride 1,000 ML IVC SCH ×3 (08:39→23:10)
[2021-09-23] MEDS ORDERED: Lisinopril-HCTZ 20-12.5mg TABLET PO SCH (12:00)
[2021-09-23] MEDS: amLODIPine 5 MG TABLET PO SCH (12:21)
[2021-09-23] MEDS: Gabapentin 400 MG CAPSULE PO SCH ×3 (12:21→20:17)
[2021-09-23] MEDS: Insulin LISPRO 300 UNITS/3 ML VIAL SUBQ SCH ×2 (12:22→16:37)
[2021-09-23 12:42] LABS: Estimated Average Glucose 258 mg/dl; Hemoglobin A1C 10.6 %
[2021-09-24 03:38] VITALS: O2SAT 95
[2021-09-24] MEDS: Piperacillin/Tazobactam 3.375 GM in 0.9 % Sodium Chloride Mini Bag 100 ML IVPB SCH (03:57)
[2021-09-24] MEDS: *HR* OxyCODONE Oral Soln 5 MG/5 ML UD.LIQ PO PRN (04:03)
[2021-09-24 06:02] LABS: Basophils % 0.3 %; Eosinophils # 0.1 K/mcL (0.0-0.6); Eosinophils % 0.9 %; Hemoglobin 13.5 g/dL (12.9-16.9); Immature Granulocytes % 1.2 % (0-4); Lymphocytes # 0.8 K/mcL (0.6-4.6); Lymphocytes % 9.7 %; Mean Corpuscular HGB Conc 32.9 g/dL (31.6-35.5); Mean Corpuscular Hemoglobin 32.1 pg (28.0-33.3); Mean Corpuscular Volume 97.6 fL (83.0-100.0); Mean Platelet Volume 11.9 fL (9.4-12.4); Monocytes # 0.6 K/mcL (0.0-1.3); Monocytes % 7.4 %; Neutrophils # 6.3 K/mcL (1.6-8.9); Platelet Count 159 K/mcL (140-400); Red Cell Distribution Width 15.1 % (11.5-14.5); Segmented Neutrophils % 80.5 %; White Blood Count 7.8 K/mcL (4.3-11.1)
[2021-09-24 06:22] LABS: Alanine Aminotransferase 75 Units/L (7-52); Albumin 2.8 g/dL (3.5-5.7); Alkaline Phosphatase 426 Units/L (34-104); Aspartate Amino Transferase 56 Units/L (13-39); BUN/Creatinine Ratio 17 (6-26); Blood Urea Nitrogen 22 mg/dL (8-23); Calcium 7.6 mg/dL (8.6-10.3); Carbon Dioxide 27 mEq/L (23-29); Chloride 101 mEq/L (98-107); Globulin 2.8 g/dL (2.4-3.5); Glucose 306 mg/dL (70-105); Osmolality,Calculated 293 (280-300); Potassium 4.3 mEq/L (3.5-5.1); Sodium 134 mEq/L (136-145); Total Protein 5.6 g/dL (6.4-8.9); eGFR For African Americans > 60 (> 60); eGFR For Non-African Americans 56 (> 60)
[2021-09-24] MEDS: amLODIPine 5 MG TABLET PO SCH (07:55)
[2021-09-24] MEDS: Gabapentin 400 MG CAPSULE PO SCH (07:56)
[2021-09-24] MEDS: Insulin LISPRO 300 UNITS/3 ML VIAL SUBQ SCH (08:01)
[2021-09-24 08:26] LABS: Bilirubin,Direct 2.9 mg/dL (0.0-0.2)
[2021-09-24] MEDS: 0.9 % Sodium Chloride 1,000 ML IVC SCH (10:14)
[2021-09-24 11:39] VITALS: BP 143/76; PULSE 68; TEMP 98.1
[2021-09-24] MEDS ORDERED: Insulin DETEMIR 100 UNIT/ML X5UNITS SUBQ SCH (21:00)
== END 2021-09-24 13:43 | disposition home or self-care (01) | DRG 872 ==
LOC: 3ANU 11:57 → EMEROOARM 11:57 → SUATTDRO 20:10 → 3BNU 20:21
PROVIDERS: ADMIT Student in an Organized Health Care Education/Training Program; ATTEND Registered Nurse